=== PATIENT | female | born 2000 | race Caucasian/White ===

== ENCOUNTER 2020-02-15 16:04 | Outpatient (CLI) | payer MEDICAID, SELFPAY ==
[2020-02-17 17:04] LABS: SARS-CoV-2 RNA PCR Negative
== END 2020-02-15 16:05 | disposition home or self-care (01) ==
LOC: CHSLAB 16:08
PROVIDERS: PCP Family Medicine; Visit Provider Family Medicine
DX: J06.9 Acute upper respiratory infection, unspecified (principal); Z20.828 Contact with and (suspected) exposure to other viral communicable diseases
CPT/HCPCS: 87635; C9803; U0003

== ENCOUNTER 2021-04-02 13:26 | Outpatient (CLI) | payer BC, MEDICAID, SELFPAY ==
[2021-04-02 15:00] LABS: SARS-CoV-2 Ag Negative (Negative)
[2021-04-02 15:39] LABS: SARS-CoV-2 RNA PCR Positive (Negative)
== END 2021-04-02 13:27 | disposition home or self-care (01) ==
PROVIDERS: PCP Physician Assistant; Visit Provider Physician Assistant
DX: U07.1 COVID-19 (principal)
CPT/HCPCS: 87426; C9803; U0003; U0005

== ENCOUNTER 2021-04-22 10:06 | Outpatient (CLI) | payer BC, SELFPAY ==
--- NOTE | ~2021-04-22 | XR_ITS ---
EXAMINATION: XR chest 2V DATE: 04/22/2021 10:27 INDICATION: Shortness of breath. Wheezing. TECHNIQUE: Frontal and lateral views of the chest were obtained. COMPARISON: None. FINDINGS: The chest demonstrates clear lungs without pneumonia, pleural effusion, or pneumothorax. Th e heart size is normal. IMPRESSION: 1. No acute cardiopulmonary disease. Reviewed, dictated and finalized at location A. L CONTRACTS SPECIALIST
== END 2021-04-22 10:07 | disposition home or self-care (01) ==
PROVIDERS: PCP Nurse Practitioner Family; Visit Provider Obstetrics & Gynecology
DX: R06.02 Shortness of breath (principal)
CPT/HCPCS: 71046

== ENCOUNTER 2021-04-23 20:11 | Emergency (ER) | payer BC, SELFPAY ==
--- NOTE | ~2021-04-23 | XR_ITS ---
EXAMINATION: XR chest 1V portable EXAM DATE: 04/23/2021 21:42 INDICATION: SOB, wheezing x 1wk worsening today. TECHNIQUE: Portable AP frontal chest x-ray was obtained. Comparison is made to prior examination from 04/22/2021. FINDINGS: There is no significant interval change. The lungs are clear. There are no pleural effusio ns. The cardiomediastinal silhouette is within normal limits. There is no pneumothorax suspected. The bones and soft tissues are unremarkable. IMPRESSION: No acute cardiopulmonary findings. Reviewed, dictated and finalized at location G. UNICATION EQUIPMENT MECHANIC
[2021-04-23] MEDS: methylPREDNISolone SOD SUCC 125 MG VIAL IM (21:09)
[2021-04-23 21:17] VITALS: BP 140/84; PULSE 100; RESP 16; TEMP 36.4; O2SAT 100
[2021-04-23 21:41] LABS: Basophils Absolute Auto 0.05 K/mm3 (0.00-0.10); Basophils Percent Auto 0.5 % (0.0-1.0); Eosinophils Absolute Auto 0.46 K/mm3 (0.02-0.50); Eosinophils Percent Auto 4.4 % (1.0-6.0); Hematocrit 39.2 % (35.0-49.0); Hemoglobin 13.1 g/dL (12.0-15.0); Immature Granulocyte Absolute 0.03 K/mm3 (0.00-0.00); Immature Granulocyte Percent A 0.3 % (0.0-0.0); Lymphocytes Absolute Auto 1.79 K/mm3 (1.10-4.50); Lymphocytes Percent Auto 17.3 % (18.0-42.0); Mean Corpuscular HGB Conc 33.4 g/dL (32.0-36.0); Mean Corpuscular Hemoglobin 30.5 pg (27.0-31.0); Mean Corpuscular Volume 91.4 fL (78.0-102.0); Mean Platelet Volume 9.8 fl (9.2-11.8); Monocytes Absolute Auto 0.66 K/mm3 (0.10-0.90); Monocytes Percent Auto 6.4 % (2.0-11.0); Neutrophils Absolute Auto 7.4 K/mm3 (1.7-7.2); Neutrophils Percent Auto 71.1 % (50.0-70.0); Platelet Count Result 301 K/mm3 (150-420); Red Blood Count 4.29 M/mm3 (4.20-5.40); Red Cell Distribution Width 13.4 % (11.6-14.4); White Blood Count 10.3 K/mm3 (4.8-10.8)
[2021-04-23 21:56] LABS: Alanine Aminotransferase 25 U/L (14-59); Alkaline Phosphatase 63 U/L (46-116); Anion Gap 10 mmol/L (8-16); Aspartate Amino Transferase 14 U/L (15-37); Bilirubin,Total 0.2 mg/dL (0.00-1.00); Blood Urea Nitrogen 10 mg/dL (7-18); Calcium 8.9 mg/dL (8.5-10.1); Carbon Dioxide 24 mmol/L (21-32); Chloride 102 mmol/L (98-108); Estimated CRCL calculation 105 ml/min; Estimated Glomerular Filt Rate > 60; Glucose 86 mg/dL (70-99); Osmolality Calculated 280 mOsm/kg (285-295); Potassium 3.7 mmol/L (3.5-5.1); Sodium 136 mmol/L (136-145); Total Protein 7.2 g/dL (6.4-8.2)
--- NOTE | 2021-04-23 22:09 | ED.SOB ---
HPI - SOB/Dyspnea General Chief Complaint: Shortness of Breath/Dyspnea Stated Complaint: trouble breathing Time Seen by Provider: 04/23/21 20:14 Source: patient and RN notes reviewed Mode of arrival: ambulatory Limitations: no limitations History of Present Illness MD elicited complaint: shortness of breath and cough Pertinent past history: COPD Onset (ago): day(s) (1) Context: recent illness Timing: constant Severity: moderate Exacerbating factors: nothing Relieving factors: bronchodilators Known history of: COPD Associated symptoms: cough and wheezing Treatment prior to arrival: none Related Data Home oxygen amount: none Allergies Allergy/AdvReac Type Severity Reaction Status Date / Time Penicillins Allergy Intermediate hives Verified 04/23/21 21:03 Review of Systems Review of Systems: All systems reviewed & are unremarkable except as noted in HPI and below PMFSH Past Medical History Medical History Bronchitis Perforated ear drum Shortness of breath Surgical History Surgical History History of placement of ear tubes Social History Social History Smoking status: Never smoker Alcohol intake: current Alcohol use details: social Substance use: never Substance use type: does not use Additional living arrangements comments: Boyfriend and son Gender identity (if verbalized by the patient): Female Exam Const: General: healthy appearing, no acute distress and alert Nutritional Appearance: well nourished Orientation/consciousness: patient oriented x3 Limitations: no limitations HENMT: Head: normal to inspection Ears: external ears normal and TM's normal bilaterally General nose exam: Normal external nose present and Normal nares present Mouth: Yes lip normal and Yes moist mucous membranes Teeth and gingiva: dentition normal Eyes: Conjunctivae: conjunctivae normal Pupils: Equal, round and reactive pupils present EOM: EOMs intact bilaterally Neck: Neck: normal visual inspection Chest: Chest palpation & inspection: normal inspection of the chest Resp: Effort & Inspection: normal respiratory effort Auscultation: rhonchi and wheezes Cardio: Rate: regular rate Rhythm: regular rhythm GI: GI Palp: Yes Soft to palpation and No Tenderness to palpation present (GI) Auscultation: normal bowel sounds : General: Yes bladder normal to palpation and Yes no CVA tenderness Other: Pt is approx 15 weeks . Back/Spine/Pelvis: Back: no CVA tenderness Skin: General skin exam: normal color Neuro: General: patient oriented x3, moves all extremities, no meningeal signs, no focal motor deficits and CN's II-XI intact bilaterally Extrem: General: normal to inspection and no pedal edema Psych: Mental Status: mental status grossly normal Affect: normal affect Attitude: cooperative Thought content: Yes Normal thought content present Course Course Emergency Course: Pt had no acute resp distress in the ED with less wheezing. Reevaluation(s) Reevaluation #1: VSS. Date: 04/23/21 Time: 21:13 Vital Signs Vital signs: Vital Signs Temperature 36.4 C 04/23/21 21:17 Pulse Rate 100 04/23/21 21:17 Respiratory Rate 16 04/23/21 21:17 Blood Pressure 140/84 04/23/21 21:17 Pulse Oximetry 100 04/23/21 21:17 Temperature 36.8 C 04/23/21 22:59 Pulse Rate 105 H 04/23/21 22:59 Respiratory Rate 17 04/23/21 22:59 Blood Pressure 124/72 04/23/21 22:59 Pulse Oximetry 98 04/23/21 22:59 MDM - SOB/Dyspnea Differential Diagnosis Differential diagnosis: Likely acute exacerbation of chronic obstructive airways disease, community acquired pneumonia and asthma with exacerbation Medical Records Attestation: I reviewed the patient's medical records. Lab Data Attestation: I reviewed the patient's lab results.
[2021-04-23 22:13] LABS: Base Excess ABG -5.4 mmol/L (0-2); HCO3 ABG 16.7 mmol/L (23-29); Oxygen Content ABG 18.2 %vol (16.0-22.0); Oxygen Saturation ABG 95.1 % (95-97); Oxyhemoglobin 94.4 % (94-100); PCO2 ABG 24.4 mmHg (35-45); PO2 ABG 75.6 mmHg (80-90); Total Hemoglobin 13.7 g/dL (12.0-18.0); pH ABG 7.45 (7.35-7.45)
[2021-04-23 22:15] LABS: Device ROOM AIR; Modified Allen's Test Pass; Site Drawn RIGHT RADIAL
[2021-04-23] MEDS: ALBUTEROL SULFATE (*SP) INHALER 4 PUFF INHALATION (22:35)
[2021-04-23 22:37] VITALS: PULSE 102; RESP 17; O2SAT 97
[2021-04-23 22:39] VITALS: PULSE 102; RESP 17; O2SAT 98
--- NOTE | 2021-04-23 22:56 | PC.NURSE ---
HIV testing refusal form (mother) completed.
[2021-04-23 22:59] VITALS: BP 124/72; PULSE 105; RESP 17; TEMP 36.8; O2SAT 98
== END 2021-04-23 23:02 | disposition home or self-care (01) ==
PROVIDERS: Emergency Provider Emergency Medicine; PCP Nurse Practitioner Family
DX: J40 Bronchitis, not specified as acute or chronic (principal); Z33.1 Pregnant state, incidental
CPT/HCPCS: 36415; 36600; 71045; 80053; 82805; 85025; 96372; 99283; A9270; J2930

== ENCOUNTER 2021-10-11 01:26 | Outpatient (RCR) | payer BC, MEDICAID, SELFPAY ==
[2021-10-11 02:13] VITALS: BP 118/75; PULSE 80
== END 2021-11-01 14:59 | disposition home or self-care (01) ==
LOC: ANHLDR 01:26
PROVIDERS: Visit Provider Obstetrics & Gynecology
DX: O36.8130 Decreased fetal movements, third trimester, not applicable or unspecified (principal); Z3A.39 39 weeks gestation of pregnancy
CPT/HCPCS: 59025

== ENCOUNTER 2021-10-15 18:08 | Inpatient (IN) | payer BC, MEDICAID, SELFPAY ==
[2021-10-15] VITALS (7 sets, daily range): BP systolic 116–133; BP diastolic 64–83; PULSE 88–98; TEMP 37.1; BMI 32.3
[2021-10-15 19:14] LABS: Basophils Percent Auto 0.3 % (0.2-1.2); Eosinophils Percent Auto 0.5 % (0-4.4); Hematocrit 33.8 % (37.0-47.0); Hemoglobin 10.4 g/dL (12.0-15.0); Immature Granulocyte Absolute 0.06 K/mm3 (0.00-0.031); Immature Granulocyte Percent A 0.7 % (0-0.5); Lymphocytes Absolute Auto 1.84 K/mm3 (0.9-3.2); Mean Corpuscular HGB Conc 30.8 g/dl (32-36); Mean Corpuscular Hemoglobin 26.5 pg (26-34); Mean Platelet Volume 11.2 fl (7.4-10.4); Monocytes Absolute Auto 0.7 K/mm3 (0.1-0.6); Neutrophils Absolute Auto 6.1 K/mm3 (1.3-6.7); Neutrophils Percent Auto 69.5 % (45.5-73.1); Platelet Count Result 264 k/mm3 (150-375); Red Blood Count 3.93 M/mm3 (4.2-5.4); Red Cell Distribution Width 15.2 % (11.5-14.5); White Blood Count 8.8 K/mm3 (4.5-10.0)
--- NOTE | 2021-10-15 19:19 | WPDANESEPP ---
Anes - Eval Pre Procedure Procedure: labor epidural Date/Time: 10/15/21 19:19 Surgeon: ashly Preop Diagnosis: pain during labor Pre Op Diagnosis: IOL Patient Data Age: 21 Gender: F Height: 1.65 m Weight: 88 kg Last Vital Signs Temp 37.1 C 10/15/21 18:15 Pulse 91 10/15/21 19:15 BP 116/78 10/15/21 19:15 O2 Del Method Room Air 10/15/21 18:44 Allergies Allergy/AdvReac Type Severity Reaction Status Date / Time Penicillins Allergy Intermediate hives Verified 10/07/21 14:39 Home Medications Medication Instructions Recorded Confirmed Type albuterol sulfate 90 mcg/actuation 1 inh inhalation Q4H PRN shortness 04/19/21 04/23/21 Rx aerosol inhaler (ProAir HFA) of breath or wheezing #8.5 grams inhalational spacing device #10 ea 04/19/21 04/23/21 Rx (Aerochamber MV spacer) prenat.vits,jasper,[id number] 1 tablet PO HS 10/07/21 10/07/21 History Laboratory Tests 10/15/21 10/15/21 18:40 18:40 WBC 8.8 K/mm3 K/mm3 (4.5-10.0) RBC 3.93 M/mm3 L M/mm3 (4.2-5.4) Hgb 10.4 g/dL L g/dL (12.0-15.0) Hct 33.8 % L % (37.0-47.0) MCV 86.0 fl fl (80-100) MCH 26.5 pg pg (26-34) MCHC 30.8 g/dl L g/dl (32-36) RDW 15.2 % H % (11.5-14.5) Plt Count 264 k/mm3 k/mm3 (150-375) MPV 11.2 fl H fl (7.4-10.4) Immature Gran % (Auto) 0.7 % H % (0-0.5) Neut % (Auto) 69.5 % % (45.5-73.1) Lymph % (Auto) 21.0 % % (18.3-44.2) Sequoyah % (Auto) 8.0 % % (2.6-8.5) Eos % (Auto) 0.5 % % (0-4.4) Baso % (Auto) 0.3 % % (0.2-1.2) Lymph # (Auto) 1.84 K/mm3 K/mm3 (0.9-3.2) [place] # (Auto) 0.7 K/mm3 H K/mm3 (0.1-0.6) Eos # (Auto) 0.0 K/mm3 K/mm3 (0-0.3) Baso # (Auto) 0.0 K/mm3 K/mm3 (0.0-0.1) Abs Immat Gran (auto) 0.06 K/mm3 H K/mm3 (0.00-0.031) Absolute Neuts (auto) 6.1 K/mm3 K/mm3 (1.3-6.7) Absolute Nucleated RBC 0.0 K/mm3 K/mm3 (0.0-0.012) Nucleated RBC % 0.0 % % (0.0-0.2) RPR Pending Patient hx anesthesia problems: none Family hx anesthesia problems: none Results Review: All pre-operative results and documents have been reviewed as part of the pre-operative evaluation. [facility] Past Medical History Medical History Bronchitis Perforated ear drum Shortness of breath Surgical History Surgical History History of placement of ear tubes Family History Family History (Updated 10/07/21 @ 14:42 by Emma Cardoso RN) Mother Hypertension Social History Social History Smoking status: Current every day smoker Tobacco type: e-cigarettes/vaping Second hand tobacco smoke exposure: Yes Alcohol intake: current Alcohol use details: social Substance use: never Substance use type: does not use Additional living arrangements comments: Boyfriend and son Gender identity (if verbalized by the patient): Female Spiritual care concerns: No Exam Day of Procedure 10/15/21 19:19
[2021-10-15] MEDS: DINOPROSTONE 10 MG VAG INSERT VAGINAL (19:33)
[2021-10-16] VITALS (238 sets, daily range): BP systolic 73–232; BP diastolic 21–195; PULSE 30–216; RESP 18–20; TEMP 36.8–37.3; O2SAT 84–100
[2021-10-16] MEDS: fentaNYL CITRATE INJ (*CRX) 100 MCG/2 ML VIAL 50 MCG IV PUSH (00:28)
[2021-10-16] MEDS: LACTATED RINGERS 1,000 ML 125 ML IV CONT ×5 (00:30→13:55)
[2021-10-16] MEDS: TERBUTALINE SULFATE 1 MG/ML VIAL 0.25 MG SUB-Q ×2 (04:10→04:38)
[2021-10-16] MEDS: ONDANSETRON INJ 4 MG/2 ML VIAL IV PUSH (04:23)
--- NOTE | 2021-10-16 06:46 | PM.IMHP ---
H&P: HPI History of Present Illness Date/Time: 10/16/21 06:46 Chief Complaint: Postdates Narrative: this is a 21-year-old 1 para 0 whose last menstrual period was December of 2020, EDC is 10/13/2021, confirmed by 6 week ultrasound. She presents at 40 and half weeks gestation for induction of labor. The has been on remarkable. She she is negative for group B strep PMFSH Past Medical History Medical History Bronchitis Perforated ear drum Shortness of breath Surgical History Surgical History History of placement of ear tubes Family History Family History Mother Hypertension Social History Social History Smoking status: Current every day smoker Tobacco type: e-cigarettes/vaping Second hand tobacco smoke exposure: Yes Alcohol intake: current Alcohol use details: social Substance use: never Substance use type: does not use Additional living arrangements comments: Boyfriend and son Gender identity (if verbalized by the patient): Female Spiritual care concerns: No Meds Home Medications and Allergies Home Medications Medication Instructions Recorded Confirmed Type albuterol sulfate 90 mcg/actuation 1 inh inhalation Q4H PRN shortness 04/19/21 10/15/21 Rx aerosol inhaler (ProAir HFA) of breath or wheezing #8.5 grams inhalational spacing device #10 ea 04/19/21 10/15/21 Rx (Aerochamber MV spacer) prenat.vits,jasper,[id number] 1 tablet PO HS 10/07/21 10/07/21 History Allergies Allergy/AdvReac Type Severity Reaction Status Date / Time Penicillins Allergy Intermediate hives Verified 10/07/21 14:39 Vital Signs Vital Signs - 24 hr 10/15/21 18:27 10/15/21 18:15 10/15/21 19:15 Temperature 98.7 F Pulse Rate 98 91 Respiratory Rate Blood Pressure 127/74 116/78 Pulse Oximetry Oxygen Delivery 10/15/21 20:00 10/15/21 21:00 10/15/21 23:49 Temperature Pulse Rate 89 89 88 Respiratory Rate Blood Pressure 122/70 124/64 133/83 Pulse Oximetry Oxygen Delivery 10/15/21 22:00 10/16/21 01:52 10/16/21 01:54 Temperature 98.7 F Pulse Rate 97 Respiratory Rate Blood Pressure 142/75 H Pulse Oximetry 100 99 Oxygen Delivery 10/16/21 01:54 10/16/21 01:55 10/16/21 01:56 Temperature Pulse Rate 99 91 Respiratory Rate Blood Pressure 146/85 H 135/85 Pulse Oximetry 98 93 Oxygen Delivery 10/16/21 01:57 10/16/21 01:59 10/16/21 02:01 Temperature Pulse Rate 89 87 Respiratory Rate Blood Pressure 90/75 L 117/84 Pulse Oximetry 100 Oxygen Delivery 10/16/21 02:02 10/16/21 02:04 10/16/21 02:05 Temperature Pulse Rate 100 79 Respiratory Rate Blood Pressure 130/73 138/57 L Pulse Oximetry 100 99 Oxygen Delivery 10/16/21 02:06 10/16/21 02:09 10/16/21 02:10 Temperature Pulse Rate 77 81 74 Respiratory Rate Blood Pressure 137/69 137/55 L 126/50 L Pulse Oximetry 100 Oxygen Delivery 10/16/21 02:11 10/16/21 02:12 10/16/21 02:16 Temperature Pulse Rate 75 82 Respiratory Rate Blood Pressure 114/61 88/68 L Pulse Oximetry 99 100 Oxygen Delivery 10/16/21 02:21 10/16/21 02:21 10/16/21 02:21 Temperature Pulse Rate Respiratory Rate Blood Pressure Pulse Oximetry 99 97 92 Oxygen Delivery 10/16/21 02:21 10/16/21 02:21 10/16/21 02:22 Temperature Pulse Rate 82 Respiratory Rate Blood Pressure 130/85 Pulse Oximetry 100 Oxygen Delivery 10/16/21 02:22 10/16/21 02:30 10/16/21 02:45 Temperature Pulse Rate 82 84 Respiratory Rate Blood Pressure 135/74 124/67 Pulse Oximetry 100 Oxygen Delivery 10/16/21 03:00 10/16/21 03:09 10/16/21 03:14 Temperature Pulse Rate
[2021-10-16] MEDS: OXYTOCIN 30 UNITS/NS 500 ML 30 UNITS/500 ML BAG IV CONT (07:31)
--- NOTE | 2021-10-16 07:56 | LDADM ---
This patient, Emma Mazariegos, was admitted to Labor/Delivery/Recovery 109 on 10/15/21 at 18:08. Plans for labor, pain management and were discussed with patient. Patient/family oriented to hospital policies and general routines including ID bracelet, bed and alarms, visiting hours, pain management, procedures, bathroom and other care routines, personal items, smoking policy, room service/diet and guest tray routines, security routines, and visiting hours. Patient/Family are encouraged to report perceived risks to care and to ask questions if they do not understand what they are told or what they should do. See OBIX for further documentation.
[2021-10-16] MEDS: diphenhydrAMINE HCl INJ 50 MG/ML VIAL 25 MG IV PUSH (08:45)
[2021-10-16 10:22] LABS: Rapid Plasma Reagin Non-Reactive (NonReactive)
--- NOTE | 2021-10-16 15:46 | P.PCNOB_ITS ---
OB - Delivery Note Procedure Delivery date: 10/16/21 Procedure: mil Events: Elective Induction of Labor Induction method: Per Cervidil Protocol Delivery augmentation: Rupture of Membranes and Pitocin Delivery monitor: External FHT and Internal Uterine Route of delivery: Episiotomy description: None Laceration Description: None Specimen: No Quantitative Blood Loss (ml): 59 Anesthesia type: Epidural Disposition: Floor [place] Baby Date of : 10/16/21 Time of : 15:39 Weeks of gestation at delivery: 40 gender: Female presentation: vertex position: Right Occiput Anterior Placenta delivery description: Spontaneous Cord Vessel Description: 3 Vessels
[2021-10-16] MEDS: OXYTOCIN 30 UNITS/NS 500 ML 30 UNITS/500 ML BAG 125 UNITS IV CONT (16:21)
[2021-10-16] MEDS: IBUPROFEN 600 MG TABLET PO (17:05)
--- NOTE | 2021-10-16 18:00 | OBPPTRN ---
Patient transferred to post room #291 via W/C. Support person present. Oriented to unit, room, information board, rooming in, admission packet and security measures. Patient verbalizes understanding.
[2021-10-17] MEDS: IBUPROFEN 600 MG TABLET PO ×2 (02:54→08:31)
[2021-10-17 04:10] VITALS: BP 106/65; PULSE 75; RESP 16; TEMP 36.8
[2021-10-17 05:49] LABS: Hematocrit 28.6 % (37.0-47.0); Hemoglobin 8.9 g/dL (12.0-15.0)
--- NOTE | 2021-10-17 06:48 | PM.OBPNVD ---
OB - PN: Subj Subjective Date/time seen: 10/17/21 06:48 Patient comments: no complaints and pain well controlled baby status: doing well OB - PN: Obj Data Labs CBC & Chem 7: 10/17/21 04:14 Labs: Laboratory Results - last 24 hr 10/15/21 10/17/21 18:40 04:14 Hgb 8.9 L Hct 28.6 L RPR Non-reactive OB - PN A/P Assessment and Plan (1) Term : Code(s): Z34.90 - Encounter for supervision of normal , unspecified, unspecified trimester Status: Acute Plan day: 1 Plan: routine care Time Spent With Patient Time: Total time spent is greater than 50% in coordination of care (as documented) at patient's floor/unit and/or counseling patient: Time with patient: less than 15 minutes
--- NOTE | 2021-10-17 07:19 | PM.DS ---
DS: Admitting Diagnosis Discharge Date 10/17/2021 Admitting Diagnosis term DS: Discharge Diagnosis Discharge Diagnosis (1) Term : Code(s): Z34.90 - Encounter for supervision of normal , unspecified, unspecified trimester Status: Acute DS: Summary Hospital Course Reason for hospitalization: medical induction of labor Hospital Course: this is a 21-year-old 1 para 0 who was admitted S4 days post due date for induction of labor. She underwent spontaneous vaginal delivery. Her hospital course was unremarkable. She asked to be discharged 24hours out. She was , voiding without difficulty, ambulating, generally without complaints. Time Spent with Patient Time attestation: Total time spent providing and/or coordinating discharge services: DS: Data Data Completed and Pending Labs on day of discharge: Labs from last 24 hours 10/17/21 10/15/21 04:14 18:40 Hgb 8.9 L Hct 28.6 L RPR Non-reactive Discharge Plan Discharge Attending physician on discharge: Cipriano Pace Discharging Clinician: Cipriano Pace Patient Disposition: Home, Self-Care Activity: may shower, no straining and pelvic rest Diet: heart healthy Wound Care Instructions: follow printed instructions Patient Instructions: Antibiotic Form Stand Alone Forms: General Discharge Information Follow-up/Referrals: Cipriano Pace MD [Physician] - Discharge Medications: Continued albuterol sulfate [ProAir HFA] 90 mcg/actuation HFA aerosol inhaler 1 inh inhalation Q4H PRN (Reason: shortness of breath or wheezing) Qty: 8.5 0RF (DME) Aerochamber MV Spacer See Rx Instructions .Route Qty: 10 0RF Rx Instructions: As directed #2 Tablet 1 tablet PO HS Date of admission: 10/15/21 18:08 Primary Care Provider: PHYSICIAN,HVAC RESIDENTIAL SERVICE TECHNICIAN Admitting Provider: Cipriano Pace Attending physician on admission: Cipriano Pace Condition: Stable
[2021-10-17 07:35] VITALS: BP 107/49; PULSE 75; RESP 18; TEMP 36.3; O2SAT 97
--- NOTE | 2021-10-17 08:05 | WPDANLDPN2 ---
Anes-Prog Note L&D Date/Time: 10/17/21 08:05 Comfortable throughout: labor and delivery Neuraxial method: epidural Epidural/Spinal procedure site: clean & non-tender Neuro status: Neuro function grossly intact. Cardiovascular status: normal Respiratory status: normal Airway patency: baseline Mental status: baseline Post-Op hydration status: normal Vital Signs: Last Vital Signs Temp 36.8 C 10/17/21 04:10 Pulse 75 10/17/21 04:10 Resp 16 10/17/21 04:10 BP 106/65 10/17/21 04:10 Pulse Ox 99 10/16/21 15:48 O2 Del Method Room Air 10/16/21 18:18 Pain score (VAS): 2 I/O: Intake & Output 10/16/21 10/17/21 10/17/21 23:59 07:59 15:59 Intake Total 1000 Output Total 192 Balance 808 Post-procedural complaints: none Patient feedback: Patient satisfied with anesthetic care.
[2021-10-17] MEDS: POLYSACCHARIDE IRON COMPLEX 150 MG CAPSULE PO ×2 (08:31→17:15)
[2021-10-17] MEDS: DOCUSATE SODIUM 100 MG CAPSULE PO ×2 (08:31→17:15)
[2021-10-17] MEDS: MULTIVIT/MIN/PREN/FOL AC/IRON TABLET 1 TAB PO (08:31)
--- NOTE | 2021-10-17 08:44 | PC.NURSE ---
[id number] Introductions were made, then consulted with patient to assess needs related to . Mother led the conversation with her experience feeding her so far. Resources provided for inpatient and outpatient services using a resource guide and mom/baby guide. Mother voiced understanding of information and will call if there is a request for assistance. Reported to primary RN.
[2021-10-17 12:31] VITALS: BP 116/55; PULSE 79; RESP 18; TEMP 36.4; O2SAT 98
[2021-10-18 10:03] VITALS: BP 128/79; PULSE 82; RESP 20; TEMP 36.7; O2SAT 99
== END 2021-10-17 17:53 | disposition home or self-care (01) | DRG 807 ==
LOC: ANHLDR 10-16 08:22 → ANHOB2 10-16 18:03
PROVIDERS: Admitting Provider Obstetrics & Gynecology; Visit Provider Obstetrics & Gynecology
DX: O48.0 Post-term pregnancy (principal); Z37.0 Single live birth; Z3A.40 40 weeks gestation of pregnancy; O77.0 Labor and delivery complicated by meconium in amniotic fluid; O36.8330 Maternal care for abnormalities of the fetal heart rate or rhythm, third trimester, not applicable or unspecified
CPT/HCPCS: 36415; 85014; 85018; 85025; 86592; 86850; 86900; 86901; A9270; J1200; J2405; J2590; J2795; J3010; J3105; J7120

== ENCOUNTER 2022-03-06 20:13 | Emergency (ER) | payer BC, OTHER, SELFPAY ==
[2022-03-06] VITALS (8 sets, daily range): BP systolic 114–140; BP diastolic 69–82; PULSE 66–110; RESP 14–20; TEMP 36.2–37; O2SAT 98–100
--- NOTE | 2022-03-06 20:24 | ECG_ITS ---
Measurements Intervals [place] Rate: 94 P: -30 WI: 142 QRS: 21 QRSD: 84 T: 18 QT: 346 QTc: 434 Interpretive Statements SINUS RHYTHM NORMAL ELECTROCARDIOGRAM NO PREVIOUS ECG AVAILABLE FOR COMPARISON Electronically Signed On 03-07-2022 16:33:41 OIL WELL CABLE TOOL DRILLER by Jacques Booth M.D.
[2022-03-06 20:43] LABS: Basophils Absolute Auto 0.03 K/mm3 (0.00-0.10); Basophils Percent Auto 0.5 % (0.0-1.0); Eosinophils Absolute Auto 0.12 K/mm3 (0.02-0.50); Eosinophils Percent Auto 1.8 % (1.0-6.0); Hematocrit 38.5 % (35.0-49.0); Hemoglobin 12.4 g/dL (12.0-15.0); Immature Granulocyte Absolute 0.02 K/mm3 (0.00-0.00); Immature Granulocyte Percent A 0.3 % (0.0-0.0); Lymphocytes Percent Auto 27.7 % (18.0-42.0); Mean Corpuscular HGB Conc 32.2 g/dL (32.0-36.0); Mean Corpuscular Hemoglobin 29.7 pg (27.0-31.0); Mean Corpuscular Volume 92.1 fL (78.0-102.0); Mean Platelet Volume 10.1 fl (9.2-11.8); Monocytes Absolute Auto 0.57 K/mm3 (0.10-0.90); Monocytes Percent Auto 8.8 % (2.0-11.0); Neutrophils Percent Auto 60.9 % (50.0-70.0); Platelet Count Result 299 K/mm3 (150-420); Red Blood Count 4.18 M/mm3 (4.20-5.40); Red Cell Distribution Width 11.9 % (11.6-14.4); White Blood Count 6.5 K/mm3 (4.8-10.8)
[2022-03-06 21:07] LABS: Alanine Aminotransferase 46 U/L (14-59); Albumin Level 3.7 g/dL (3.4-5.0); Alkaline Phosphatase 95 U/L (46-116); Anion Gap 8 mmol/L (8-16); Aspartate Amino Transferase 21 U/L (15-37); Bilirubin,Total 0.3 mg/dL (0.00-1.00); Blood Urea Nitrogen 10 mg/dL (7-18); Calcium 8.4 mg/dL (8.5-10.1); Carbon Dioxide 28 mmol/L (21-32); Chloride 105 mmol/L (98-108); Estimated CRCL calculation 92 ml/min; Estimated Glomerular Filt Rate > 60; Glucose 128 mg/dL (70-99); Osmolality Calculated 293 mOsm/kg (285-295); Potassium 3.8 mmol/L (3.5-5.1); Salicylate 1.4 mg/dL (2.8-20.0); Sodium 141 mmol/L (136-145); Total Protein 7.3 g/dL (6.4-8.2)
[2022-03-06 21:08] LABS: Acetaminophen < 2 ug/mL (10-30); Ethanol < 3 mg/dL (0-6)
[2022-03-06 21:21] LABS: SARS-CoV-2 RNA PCR Negative (Negative)
[2022-03-06 21:29] LABS: Thyroid Stimulating Hormone < 0.01 uIU/mL (0.36-3.74)
--- NOTE | 2022-03-06 21:49 | PC.NURSE ---
patient can not breast feed for 2days
[2022-03-06 21:59] LABS: Add Urine Microscopic? YES; Appearance Urine Clear (Clear); Bilirubin Urine Negative (Negative); Blood Urine Negative (Negative); Color Urine Light Yellow (Yellow); Glucose Urine UA Negative (Negative); Ketones Urine Negative (Negative); Leukocyte Esterase Ur Trace LEU/UL (Negative); Nitrate Urine Negative (Negative); Protein Urine Negative (Negative); Specific Grav Ur 1.015 (1.010-1.020); Urobilinogen Urine 0.2 mg/dL (0.2-1.0)
[2022-03-06 22:01] LABS: Pregnancy On Board Control Positive; Urine Pregnancy Test Negative
[2022-03-06] MEDS: ONDANSETRON HCL ODT 4 MG TABLET PO (22:02)
[2022-03-06] MEDS: ALPRAZolam (*CRX) 0.5 MG TABLET PO (22:02)
[2022-03-06 22:05] LABS: Amphetamine Screen Urine Negative (Negative); Barbiturate Screen Urine Negative (Negative); Benzodiazepines Screen Urine Negative (Negative); Cannabinoid Screen Urine Negative (Negative); Cocaine Screen Urine Negative (Negative); Methadone Screen Urine Negative (Negative); Opiate Screen Urine Negative (Negative); Phencyclidine Screen Urine Negative (Negative)
[2022-03-06 22:10] LABS: Bacteria Urine Trace /hpf; RBC Urine 0-2 /hpf (0-2); Squamous Epithelial Cell Urine Few /hpf (Few); WBC Urine 0-3 /hpf (0-3)
[2022-03-06 22:11] LABS: Mucus Urine Rare /lpf
--- NOTE | 2022-03-06 23:33 | PC.NURSE ---
Care resumed, pt resting c lights out and sitter at bedside monitoring per protocol. See obs. flowsheet per sitter. Pt is on monitor c VSS and heart monitor in place showing NSR. Per report pt will be monitored until 1Am for medical clearance and then [facility] can be called for pt evaluation. Pt is polite upon entering room, when asked questions she answers appropriately and does state she is having more SI and intentions on acting upon them. She states she is depressed and has been dx'd c manic bipolar episodes and thinks this is what caused her to take OD of her pills tonight. POC discussed c pt and she is aware of Plan.
[2022-03-07] VITALS: BP 109/59; PULSE 90; RESP 15; TEMP 36.8; O2SAT 100
--- NOTE | 2022-03-07 00:55 | PC.NURSE ---
Pt sleeping, monitor showing NSR, VSS. Pt is cleared medically for eval by [facility].
--- NOTE | 2022-03-07 02:27 | PC.NURSE ---
Pt sleeping, continuing to monitor per protocol c sitter at bedside, see obs. flowsheet documentation.
--- NOTE | 2022-03-07 03:38 | PC.NURSE ---
Pt was evaluated by counselor ross Richardson, POC discussed and safety plan signed by pt for f/u on o/p basis ross Richardson. Dr Seaamn informed and pt to d/c home c mother.
--- NOTE | 2022-03-07 03:49 | ED.OVERDOSE ---
HPI - Overdose General Chief Complaint: Overdose Stated Complaint: suicidal, took a bunc of pills Source: patient Mode of arrival: ambulatory Limitations: no limitations History of Present Illness HPI Narrative: This is a 21-year-old female that presents after she took 12 of her Seroquel in an attempt to commit suicide, has a history of depression, patient had no palpitations no cough no congestion no fever chills no chest pain no shortness of breath no nausea or vomiting no diarrhea constipation or abdominal pain. complaint: intentional overdose Onset (ago): hour(s) Intent: suicide attempt Related Data Home Medications Medication Instructions Recorded Confirmed prenat.vits,jasper,[id number] 1 tablet PO HS 10/07/21 03/06/22 citalopram 20 mg tablet (Celexa) 20 mg PO DAILY 03/06/22 03/06/22 quetiapine 25 mg tablet (Seroquel) 25 mg PO DAILY 03/06/22 03/06/22 Allergies Allergy/AdvReac Type Severity Reaction Status Date / Time Penicillins Allergy Intermediate hives Verified 10/07/21 14:39 Review of Systems Review of Systems: All systems reviewed & are unremarkable except as noted in HPI and below PMFSH Past Medical History Medical History Bronchitis Perforated ear drum Shortness of breath Surgical History Surgical History History of placement of ear tubes Family History Family History Mother Hypertension Social History Social History Smoking status: Current every day smoker Tobacco type: e-cigarettes/vaping Second hand tobacco smoke exposure: Yes Alcohol intake: current Alcohol use details: social Substance use: never Substance use type: marijuana and tranquilizers Additional living arrangements comments: Boyfriend and son Gender identity (if verbalized by the patient): Female Spiritual care concerns: No Exam Const: General: healthy appearing Nutritional Appearance: well nourished Orientation/consciousness: patient oriented x3 Limitations: no limitations HENMT: Head: normal to inspection Face and sinus: normal facial exam Mouth: Yes Normal oral and palatal mucosa present Eyes: Conjunctivae: conjunctivae normal Pupils: Equal, round and reactive pupils present EOM: EOMs intact bilaterally Neck: Neck: normal visual inspection Chest: Chest palpation & inspection: normal inspection of the chest Resp: Effort & Inspection: normal respiratory effort Cardio: Rate: regular rate GI: GI Palp: Yes Soft to palpation Auscultation: normal bowel sounds Urinary Catheter: Urinary Catheter: patent and draining Back/Spine/Pelvis: Back: no CVA tenderness Skin: General skin exam: normal color Rashes: no rashes Neuro: General: patient oriented x3 and moves all extremities Extrem: General: normal to inspection, no clubbing, cyanosis or edema and no pedal edema Psych: Affect: Sad affect present Course Course Emergency Course: Labs performed and reviewed and mental health subsequently after she was medically cleared and after 6hours of monitoring for Seroquel side effects patient was cleared to go home with her mother and a follow-up with Psychiatry. /Mental health Vital Signs Vital signs: Vital Signs Temperature 37.0 C 03/06/22 20:19 Pulse Rate 100 03/06/22 20:19 Respiratory Rate 20 03/06/22 20:19 Blood Pressure 140/82 03/06/22 20:19 Pulse Oximetry 99 03/06/22 20:19 Oxygen Delivery Room Air 03/06/22 20:19 Temperature 36.8 C 03/07/22 00:00 Pulse Rate 90 03/07/22 00:00 Respiratory Rate 15 03/07/22 00:00 Blood Pressure 109/59 L 03/07/22 00:00 Pulse Oximetry 100 03/07/22 00:00 Oxygen Delivery Room Air 03/06/22 23:12 MDM - Overdose Lab Data 03/06/22 20:39 03/06/22 20:39 Labs:
[2022-03-07 04:02] VITALS: BP 109/62; PULSE 87; RESP 18; TEMP 36.4; O2SAT 99
== END 2022-03-07 04:08 | disposition home or self-care (01) ==
PROVIDERS: Emergency Provider Emergency Medicine; PCP Nurse Practitioner Family
DX: T43.592A Poisoning by other antipsychotics and neuroleptics, intentional self-harm, initial encounter (principal); F32.A Depression, unspecified; F17.209 Nicotine dependence, unspecified, with unspecified nicotine-induced disorders; Z20.822 Contact with and (suspected) exposure to COVID-19
CPT/HCPCS: 36415; 80053; 80307; 81001; 81025; 84443; 85025; 93005; 99284; A9270; U0003; U0005

== ENCOUNTER 2022-03-27 20:24 | Emergency (ER) | payer BC, OTHER, SELFPAY ==
--- NOTE | ~2022-03-27 | XR_ITS ---
EXAMINATION: XR chest 2V 03/27/2022 20:52 INDICATION: Rib pain PROCEDURE: 2 view chest COMPARISON: 04/23/2021 FINDINGS: The lungs are clear. The cardiomediastinal silhouette is within normal limits. There are no pleural effusions. There is no pneumothorax suspected. There are breast implants. IMPRESSION: 1: NO ACUTE CARDIOPULMONARY DISEASE. Reviewed, dictated and finalized at location A. T [facility]
[2022-03-27 20:30] VITALS: BP 124/77; PULSE 100; RESP 20; TEMP 36.3; O2SAT 99
--- NOTE | 2022-03-27 20:31 | ECG_ITS ---
Measurements Intervals [place] Rate: 97 P: -39 CO: 125 QRS: 35 QRSD: 77 T: 23 QT: 332 QTc: 424 Interpretive Statements SINUS RHYTHM INCOMPLETE RIGHT BUNDLE BRANCH BLOCK BASELINE ARTIFACT- III, AVF, V3 BORDERLINE ECG COMPARED TO ECG 03/06/2022 20:48:31 NO SIGNIFICANT CHANGES Electronically Signed On 03-28-2022 8:09:41 PSYCHIATRIC TECH by Partha Capps D.O.
--- NOTE | 2022-03-27 21:00 | ED.GENADULT ---
HPI - General Adult General Chief complaint: Unspecified Stated complaint: rib pain Time Seen by Provider: 03/27/22 20:30 Source: patient Mode of arrival: ambulatory Limitations: no limitations History of Present Illness HPI narrative: Is a 21-year-old female who presents with some left-sided rib pain with that is reproducible with palpation and with deep inspiration, the patient was diagnosed in the past chronic bronchitis and has had inhaler, patient occasionally has some audible wheezing and cough. Otherwise no nausea vomiting no fever chills no chest congestion no current wheezing no abdominal pain. Patient also has been complaining of palpitations off and on currently not having any palpitations with no chest pain. Onset (ago): day(s) Related Data Home Medications Medication Instructions Recorded Confirmed citalopram 20 mg tablet (Celexa) 20 mg PO DAILY 03/06/22 03/27/22 quetiapine 25 mg tablet (Seroquel) 25 mg PO DAILY 03/06/22 03/27/22 Allergies Allergy/AdvReac Type Severity Reaction Status Date / Time Penicillins Allergy Intermediate hives Verified 10/07/21 14:39 Review of Systems Review of Systems: All systems reviewed & are unremarkable except as noted in HPI and below PMFSH Past Medical History Medical History Bronchitis Perforated ear drum Shortness of breath Surgical History Surgical History History of placement of ear tubes Family History Family History Mother Hypertension Social History Social History Smoking status: Current every day smoker Tobacco type: e-cigarettes/vaping Second hand tobacco smoke exposure: Yes Alcohol intake: current Alcohol use details: social Substance use: never Substance use type: marijuana and tranquilizers Additional living arrangements comments: Boyfriend and son Gender identity (if verbalized by the patient): Female Spiritual care concerns: No Exam Const: General: cooperative, healthy appearing, comfortable, no acute distress and well developed HENMT: Head: normal to inspection Mouth: Yes Normal oral and palatal mucosa present Teeth and gingiva: dentition normal Throat: posterior oropharynx normal Eyes: General: appearance normal, both eyes and all related structures Visual Sanchez: normal visual sanchez by confrontation Alignment and Position: alignment normal Periorbital: periorbital findings normal Eyelids: eyelids normal Conjunctivae: conjunctivae normal Sclera: sclerae normal Neck: Neck: normal visual inspection, full ROM, no lymphadenopathy and no meningeal signs Chest: Chest palpation & inspection: normal inspection of the chest and normal palpation of entire chest wall Resp: Effort & Inspection: normal respiratory effort Cardio: Jugular venous distension: no JVD Palpation: normal PMI Rate: regular rate Rhythm: regular rhythm GI: Inspection: normal to inspection Percussion: Yes normal to percussion : General: Yes bimanual renal exam normal bilaterally Urinary Catheter: Urinary Catheter: patent and draining Back/Spine/Pelvis: Back: no CVA tenderness Skin: General skin exam: normal color and no rashes or lesions noted Neuro: General: oriented to person, oriented to place and oriented to time Extrem: General: normal to inspection, full ROM and capillary refill normal Right lower extremity: normal to inspection Psych: Appearance: grossly normal Mental Status: mental status grossly normal Speech and movement: Normal speech and movement present Course Course Emergency Course: Labs and chest x-ray reviewed and within limits blood work reviewed and within normal limits as. Vital Signs Vital signs: Vital Signs Temperature 36.3 C L 03/27/22 20:30 Pulse Rate 100 03/27/22 20:30
[2022-03-27 21:04] LABS: Alanine Aminotransferase 45 U/L (14-59); Albumin Level 3.7 g/dL (3.4-5.0); Alkaline Phosphatase 101 U/L (46-116); Anion Gap 6 mmol/L (8-16); Aspartate Amino Transferase 14 U/L (15-37); Bilirubin,Total 0.3 mg/dL (0.00-1.00); Blood Urea Nitrogen 13 mg/dL (7-18); Calcium 8.7 mg/dL (8.5-10.1); Carbon Dioxide 28 mmol/L (21-32); Chloride 105 mmol/L (98-108); Estimated CRCL calculation 94 ml/min; Estimated Glomerular Filt Rate > 60; Glucose 99 mg/dL (70-99); Magnesium 1.5 mg/dL (1.8-2.4); Osmolality Calculated 288 mOsm/kg (285-295); Potassium 4.1 mmol/L (3.5-5.1); Sodium 139 mmol/L (136-145); Total Protein 7.3 g/dL (6.4-8.2)
[2022-03-27] MEDS: MAGNESIUM OXIDE 400 MG TABLET PO (21:14)
[2022-03-27 21:20] VITALS: BP 118/70; PULSE 87; RESP 20; TEMP 36.4; O2SAT 99
== END 2022-03-27 21:22 | disposition home or self-care (01) ==
PROVIDERS: Emergency Provider Emergency Medicine; PCP Nurse Practitioner Family
DX: R07.9 Chest pain, unspecified (principal); R00.2 Palpitations; E83.42 Hypomagnesemia; F17.290 Nicotine dependence, other tobacco product, uncomplicated; Z79.51 Long term (current) use of inhaled steroids
CPT/HCPCS: 36415; 71046; 80053; 83735; 93005; 99283; A9270

== ENCOUNTER 2022-08-15 15:40 | Outpatient (CLI) | payer BC, OTHER, SELFPAY | END 2022-08-15 15:41 | disposition home or self-care (01) | LOC: CHSLAB 15:43 | PROVIDERS: PCP Nurse Practitioner Family; Visit Provider Nurse Practitioner Family | DX: Z32.01 Encounter for pregnancy test, result positive (principal) | CPT/HCPCS: 36415; 84702 ==

== ENCOUNTER 2022-09-05 12:41 | Outpatient (CLI) | payer BC, OTHER, SELFPAY ==
--- NOTE | 2022-09-14 16:00 | P.PCNPFT_ITS ---
PFT Procedure Performed PFT Procedure Performed Spirometry with Pre/Post Bronchodilator Plethysmography (Lung Vol) Diffusing Cap (DLCO) PFT Interpretation DOS: 09/05/2022 REQUESTING: Angi Simon PA-C REASON FOR TESTING: Cough PULMONARY FUNCTION TESTS Results are reliable and reproducible. Spirometry: Pre-bronchodilator FEV1 is 2.79 L, 85% predicted, normal. Pre- bronchodilator FVC is 3.72 L, 94% predicted, normal. FEV1/FVC ratio 75%, low end of normal. After bronchodilator ,there was a 9% increase in FEV1, 3.03 L, 92% predicted. There is a 4% increase in the FVC, 3.85 L, 98% predicted. The EFZ92-50% is 2.26 L, 57% predicted and this increases 23%. After bronchodilator the FEF 25-75 becomes 2.76 L, 70% predicted. This is 500 mL which is significant. Lung volumes: Total lung capacity is 4.51 L, 81% predicted, low end of normal. Residual volume is 0.79 L, 48% predicted. RV/TLC is 18%, low. There is no hyperinflation or air trapping. Airway resistance is 254% predicted, elevated. Diffusion: DLCO is 32.2, 131% predicted, elevated. DLCO /VA 6.58, 139%, elevate d. Flow volume loop: The expiratory loop was normal. There was one inspiratory loop that was normal. It is customary to have 3 good loops. IMPRESSION: This study shows a small airways pattern with robust response to bronchodilator, normal diffusion. And the proper clinical setting this may be consistent with asthma. I do not see a prior study for comparison. Alecia Carlos MD
== END 2022-09-05 12:42 | disposition home or self-care (01) ==
LOC: CHSCARD 12:42
PROVIDERS: PCP Nurse Practitioner Family; Visit Provider Nurse Practitioner Family
DX: R06.2 Wheezing (principal); J45.20 Mild intermittent asthma, uncomplicated; R94.2 Abnormal results of pulmonary function studies
CPT/HCPCS: 94060; 94726; 94729

== ENCOUNTER 2023-04-14 04:40 | Inpatient (IN) | payer BC, OTHER, SELFPAY ==
[2023-04-14] VITALS (126 sets, daily range): BP systolic 98–137; BP diastolic 44–88; PULSE 75–114; RESP 14–25; TEMP 36.4–37.2; O2SAT 65–100; BMI 29.9
--- NOTE | 2023-04-14 04:40 | LDADM ---
This patient, Emma Mazariegos, was admitted to Labor/Delivery/Recovery 104 on 04/14/23 at 04:40. Plans for labor, pain management and were discussed with patient. Patient/family oriented to hospital policies and general routines including ID bracelet, bed and alarms, visiting hours, pain management, procedures, bathroom and other care routines, personal items, smoking policy, room service/diet and guest tray routines, security routines, and visiting hours. Patient/Family are encouraged to report perceived risks to care and to ask questions if they do not understand what they are told or what they should do. See OBIX for further documentation.
[2023-04-14 05:19] LABS: Basophils Percent Auto 0.3 % (0.2-1.2); Eosinophils Absolute Auto 0.1 K/mm3 (0-0.3); Eosinophils Percent Auto 1.1 % (0-4.4); Hematocrit 38.3 % (37.0-47.0); Hemoglobin 12.6 g/dL (12.0-15.0); Immature Granulocyte Absolute 0.14 K/mm3 (0.00-0.031); Immature Granulocyte Percent A 1.2 % (0-0.5); Lymphocytes Percent Auto 29.2 % (18.3-44.2); Mean Corpuscular HGB Conc 32.9 g/dl (32-36); Mean Corpuscular Hemoglobin 31.8 pg (26-34); Mean Corpuscular Volume 96.7 fl (80-100); Mean Platelet Volume 10.3 fl (7.4-10.4); Monocytes Absolute Auto 0.8 K/mm3 (0.1-0.6); Monocytes Percent Auto 6.9 % (2.6-8.5); Neutrophils Absolute Auto 7.1 K/mm3 (1.3-6.7); Neutrophils Percent Auto 61.3 % (45.5-73.1); Platelet Count Result 202 k/mm3 (150-375); Red Blood Count 3.96 M/mm3 (4.2-5.4); Red Cell Distribution Width 13.6 % (11.5-14.5); White Blood Count 11.6 K/mm3 (4.5-10.0)
[2023-04-14] MEDS: LACTATED RINGERS 1,000 ML 125 ML IV CONT ×3 (05:27→15:58)
[2023-04-14] MEDS: OXYTOCIN 30 UNITS/NS 500 ML 30 UNITS/500 ML BAG IV CONT (05:28)
--- NOTE | 2023-04-14 05:38 | PM.IMHP ---
H&P: HPI History of Present Illness Date/Time: 04/14/23 05:38 Chief Complaint: Term Narrative: 23-year-old 3 para 2 whose last menstrual period unknown EDC is 04/17/2023, confirmed by 9 week ultrasound presents at term for induction of labor she is negative for group B strep has been uncomplicated she does take Luvox but a low risk NIPT PMFSH Past Medical History Medical History Bronchitis Perforated ear drum Shortness of breath Surgical History Surgical History History of placement of ear tubes Family History Family History Mother Hypertension Social History Social History Smoking status: Former smoker Tobacco type: e-cigarettes/vaping Second hand tobacco smoke exposure: Yes Alcohol intake: current Alcohol use details: social Substance use: never Substance use type: marijuana and tranquilizers Do You Feel Safe in your Home?: Yes Lack of Transportation: No Lack of Food: Never True Current Housing: I Have Housing Concerned About Future Housing: No Difficulty Paying Gas/Electric Bills: No Difficulty Paying for Meds: No Currently Unemployed: No Education: Associate Degree Difficulty w/ Childcare or Family Care: No Living arrangements: with family Additional living arrangements comments: Boyfriend and son Occupation/Education: unemployed Gender identity (if verbalized by the patient): Female Spiritual care concerns: No Meds Home Medications and Allergies Home Medications Medication Instructions Recorded Confirmed Type inhalational spacing device #10 ea 06/06/22 09/26/22 Rx (Aerochamber MV spacer) albuterol sulfate 90 mcg/actuation 1 inh inhalation Q4H PRN shortness 09/26/22 03/20/23 Rx aerosol inhaler (ProAir HFA) of breath or wheezing #8.5 grams budesonide 180 mcg/actuation 2 inh inhalation Q12H #1 ea 09/26/22 03/20/23 Rx breath activated powder inhaler fluvoxamine 100 mg tablet 100 mg PO HS 03/20/23 03/20/23 History Allergies Allergy/AdvReac Type Severity Reaction Status Date / Time Penicillins Allergy Intermediate hives Verified 09/26/22 15:18 Vital Signs Vital Signs - 24 hr 04/14/23 05:14 04/14/23 05:16 04/14/23 05:31 Pulse Rate 90 90 98 Blood Pressure 130/74 121/70 123/88 Oxygen Delivery 04/14/23 05:29 Pulse Rate Blood Pressure Oxygen Delivery Room Air Exam Const: General: cooperative, healthy appearing, comfortable and well groomed Nutritional Appearance: average body habitus Orientation/consciousness: oriented to person, oriented to place and oriented to time HENMT: Head: normal to inspection Neck: Neck: normal visual inspection Chest: Chest palpation & inspection: normal inspection of the chest Resp: Effort & Inspection: normal respiratory effort Cardio: Rate: regular rate Rhythm: regular rhythm Heart sounds: S1 normal heart sound present and S2 normal heart sound present GI: Inspection: normal to inspection ( gravid soft uterus) : Speculum Exam - Vagina: normal appearance of the vagina Speculum Exam - Cervix: normal appearance of the cervix ( cervix 3/50/2. AROM clear. FHTs reassuring) H&P: Results Labs Labs: Short CBC 04/14/23 Range/Units 05:12 WBC 11.6 H (4.5-10.0) K/mm3 Hgb 12.6 D (12.0-15.0) g/dL Hct 38.3 (37.0-47.0) % Plt Count 202 (150-375) k/mm3 Assessment and Plan Assessment and plan (1) Term : Code(s): Z34.90 - Encounter for supervision of normal , unspecified, unspecified trimester Status: Acute Plan medical induction of labor. Spontaneous vaginal EB expected. She is an epidural candidate
--- NOTE | 2023-04-14 06:42 | WPDANESEPP ---
Anes - Eval Pre Procedure Procedure: labor epidural Date/Time: 04/14/23 06:42 Surgeon: ashly Preop Diagnosis: pain during labor Pre Op Diagnosis: IOL Patient Data Age: 23 Gender: F Height: 1.68 m Weight: 84 kg Last Vital Signs Temp 36.7 C 04/14/23 05:01 Pulse 98 04/14/23 06:31 Resp 16 04/14/23 05:01 BP 118/65 04/14/23 06:31 O2 Del Method Room Air 04/14/23 05:29 Allergies Allergy/AdvReac Type Severity Reaction Status Date / Time Penicillins Allergy Intermediate hives Verified 09/26/22 15:18 Home Medications Medication Instructions Recorded Confirmed Type inhalational spacing device #10 ea 06/06/22 09/26/22 Rx (Aerochamber MV spacer) albuterol sulfate 90 mcg/actuation 1 inh inhalation Q4H PRN shortness 09/26/22 03/20/23 Rx aerosol inhaler (ProAir HFA) of breath or wheezing #8.5 grams budesonide 180 mcg/actuation 2 inh inhalation Q12H #1 ea 09/26/22 03/20/23 Rx breath activated powder inhaler fluvoxamine 100 mg tablet 100 mg PO HS 03/20/23 03/20/23 History Laboratory Tests 04/14/23 05:12 WBC 11.6 H K/mm3 (4.5-10.0) RBC 3.96 L M/mm3 (4.2-5.4) Hgb 12.6 D g/dL (12.0-15.0) Hct 38.3 % (37.0-47.0) MCV 96.7 fl (80-100) MCH 31.8 pg (26-34) MCHC 32.9 g/dl (32-36) RDW 13.6 % (11.5-14.5) Plt Count 202 k/mm3 (150-375) MPV 10.3 fl (7.4-10.4) Immature Gran % (Auto) 1.2 H % (0-0.5) Neut % (Auto) 61.3 % (45.5-73.1) Lymph % (Auto) 29.2 % (18.3-44.2) [place] % (Auto) 6.9 % (2.6-8.5) Eos % (Auto) 1.1 % (0-4.4) Baso % (Auto) 0.3 % (0.2-1.2) Lymph # (Auto) 3.40 H K/mm3 (0.9-3.2) [place] # (Auto) 0.8 H K/mm3 (0.1-0.6) Eos # (Auto) 0.1 K/mm3 (0-0.3) Baso # (Auto) 0.0 K/mm3 (0.0-0.1) Abs Immat Gran (auto) 0.14 H K/mm3 (0.00-0.031) Absolute Neuts (auto) 7.1 H K/mm3 (1.3-6.7) Absolute Nucleated RBC 0.0 K/mm3 (0.0-0.012) Nucleated RBC % 0.0 % (0.0-0.2) RPR Pending Blood Type O Positive Antibody Screen Negative Patient hx anesthesia problems: none Family hx anesthesia problems: none Results Review: All pre-operative results and documents have been reviewed as part of the pre-operative evaluation. [facility] Past Medical History Medical History (Updated 04/14/23 @ 06:43 by Sheree Cuba CRNA) Anxiety Bronchitis Depression Intermittent asthma, uncontrolled Perforated ear drum Shortness of breath Term Surgical History Surgical History History of placement of ear tubes Family History Family History Mother Hypertension Social History Social History Smoking status: Former smoker Tobacco type: e-cigarettes/vaping Second hand tobacco smoke exposure: Yes Alcohol intake: current Alcohol use details: social Substance use: never Substance use type: marijuana and tranquilizers Do You Feel Safe in your Home?: Yes Lack of Transportation: No Lack of Food: Never True Current Housing: I Have Housing Concerned About Future Housing: No Difficulty Paying Gas/Electric Bills: No Difficulty Paying for Meds: No Currently Unemployed: No Education: Associate Degree Difficulty w/ Childcare or Family Care: No Living arrangements: with family Additional living arrangements comments: Boyfriend and son Occupation/Education: unemployed Gender identity (if verbalized by the patient): Female Spiritual care concerns: No Exam Day of Procedure 04/14/23 06:42
--- NOTE | 2023-04-14 11:31 | PM.OBPNLAB ---
Pain Control Date/time seen: 04/14/23 11:31 Pain control: tolerating well and epidural Pelvic Exam Dilation (cm): 4 Effacement (%): 80 station: -2 Amniotic membrane status: Leaking
[2023-04-14] MEDS: ONDANSETRON INJ 4 MG/2 ML VIAL IV PUSH (12:59)
[2023-04-14] MEDS: LORATADINE 5 MG TABLET PO (15:13)
[2023-04-14 15:29] LABS: Rapid Plasma Reagin Non-Reactive (NonReactive)
--- NOTE | 2023-04-14 16:26 | PM.DS ---
DS: Admitting Diagnosis Discharge Date 04/16/2023 Admitting Diagnosis Term DS: Discharge Diagnosis Discharge Diagnosis (1) Term : Code(s): Z34.90 - Encounter for supervision of normal , unspecified, unspecified trimester Status: Acute DS: Summary Hospital Course Reason for hospitalization: patient was admitted on 04/14/2023 for induction of labor. She underwent spontaneous vaginal delivery at 4:16 p.m. of a male with Apgars of 8 and 9. Hospital Course: Her hospital course thereafter was unremarkable. She remained afebrile. She was , voiding without difficulty, eating regular diet, ambulating, and generally without complaints. She did have an episode of an asthma attack and was started on steroids and nebulizer unchanged over to albuterol Time Spent with Patient Time attestation: Total time spent providing and/or coordinating discharge services: Exam Const: General: cooperative, healthy appearing and comfortable Nutritional Appearance: average body habitus Orientation/consciousness: oriented to person, oriented to place and oriented to time Resp: Effort & Inspection: normal respiratory effort Cardio: Rate: regular rate Rhythm: regular rhythm Heart sounds: S1 normal heart sound present and S2 normal heart sound present GI: Inspection: normal to inspection ( Fundus firm below the umbilicus) DS: Data Data Completed and Pending Labs on day of discharge: Labs from last 24 hours 04/14/23 05:12 WBC 11.6 H RBC 3.96 L Hgb 12.6 D Hct 38.3 MCV 96.7 MCH 31.8 MCHC 32.9 RDW 13.6 Plt Count 202 MPV 10.3 Immature Gran % (Auto) 1.2 H Neut % (Auto) 61.3 Lymph % (Auto) 29.2 [place] % (Auto) 6.9 Eos % (Auto) 1.1 Baso % (Auto) 0.3 Lymph # (Auto) 3.40 H [place] # (Auto) 0.8 H Eos # (Auto) 0.1 Baso # (Auto) 0.0 Abs Immat Gran (auto) 0.14 H Absolute Neuts (auto) 7.1 H Absolute Nucleated RBC 0.0 Nucleated RBC % 0.0 RPR Non-reactive Blood Type O Positive Antibody Screen Negative Discharge Plan Discharge Attending physician on discharge: Cipriano Pace Discharging Clinician: Cipriano Pace Patient Disposition: Home, Self-Care Activity: may shower and pelvic rest Diet: heart healthy Wound Care Instructions: follow printed instructions Patient Instructions: Antibiotic Form Stand Alone Forms: General Discharge Information Follow-up/Referrals: Cipriano Pace MD [Physician] - Discharge Medications: No Action albuterol sulfate [ProAir HFA] 90 mcg/actuation HFA aerosol inhaler 1 inh inhalation Q4H PRN (Reason: shortness of breath or wheezing) Qty: 8.5 1RF Pulmicort Flexhaler 180 mcg/actuation aerosol powdr breath activated 2 inh inhalation Q12H Qty: 1 2RF fluvoxamine 100 mg Tablet 100 mg PO HS (DME) Aerochamber MV Spacer See Rx Instructions .Route Qty: 10 0RF Rx Instructions: As directed Date of admission: 04/14/23 04:40 Primary Care Provider: Blayne Maria Admitting Provider: Cipriano Pace Attending physician on admission: Cipriano Pace Condition: Stable
--- NOTE | 2023-04-14 16:28 | PM.OBPRVD ---
OB - Vaginal Delivery Note Procedure Delivery date: 04/14/23 Induction method: AROM Delivery augmentation: Pitocin Delivery monitor: External FHT and Internal Uterine Route of delivery: Episiotomy description: None Laceration Description: None Specimen: No Quantitative Blood Loss (ml): 61 Anesthesia type: Epidural Disposition: Floor Complications: No immediate complications [place] Baby Date of : 04/14/23 Time of : 16:16 Weeks of gestation at delivery: 39 gender: Male presentation: vertex position: Right Occiput Anterior Placenta delivery description: Spontaneous Cord Vessel Description: 3 Vessels score one minute: 8 score five minutes: 9
[2023-04-14] MEDS: OXYTOCIN 30 UNITS/NS 500 ML 30 UNITS/500 ML BAG 125 UNITS IV CONT (16:45)
--- NOTE | 2023-04-14 18:46 | OBPPTRN ---
Patient transferred to post room #292 via wheelchair. Support person present. Oriented to unit, room, information board, rooming in, admission packet and security measures. Patient verbalizes understanding.
[2023-04-14] MEDS: IBUPROFEN 600 MG TABLET PO (20:09)
--- NOTE | 2023-04-14 22:24 | PC.NURSE ---
Patient called out at 2207 complaing of SOB, this RN call pharmacy at this time to get patients albuterol inhaler. At 2209 patient called back out and explained SOB was worsening, another RN went to obtain vitals and sit with patient while this RN waited for albuterol to arrive. It was determined at 2217 that a rapid response needed to be called. This RN called rapid response and gambreler assisted in putting patient on oxygen until assistance arrived. Albuterol inhaler was retrieved at 2218 and given to RN in room with patient.
[2023-04-14] MEDS: IPRATROPIUM 0.5 MG/ALBUTEROL SULFATE 2.5 MG AMPUL.NEB 3 ML INHALATION (22:30)
[2023-04-14] MEDS: predniSONE 20 MG TABLET 40 MG PO (23:00)
--- NOTE | 2023-04-14 23:04 | PC.NURSE ---
Respiratory arrived at 2222 O2 was 97%. HR 95. Albuterol was given at 4 O2 at 96%, HR at 100, BP 137/73 bilateral lower lobe wheezing present. 4 O2 at 97%, HR 102 with continued bilateral wheezing. 0 BP 121/77, HR 114, O2 97% updaft completed, R lower wheezing decreased but remained on R. Prednisone ordered and breathing treatments ordered Q6.
[2023-04-15] VITALS (7 sets, daily range): BP systolic 110–127; BP diastolic 52–77; PULSE 80–108; RESP 16–18; TEMP 36.7–37.2; O2SAT 96–98
[2023-04-15] MEDS: IPRATROPIUM 0.5 MG/ALBUTEROL SULFATE 2.5 MG AMPUL.NEB 3 ML INHALATION (01:50)
--- NOTE | 2023-04-15 03:08 | PHAR ---
Verified - FLUVOXAMINE MALEATE 50 MG TABLET TAKE 1 AND 1/2 TABLETSBY MOUTH AT BEDTIME. sent back to [facility] for inpatient use.
[2023-04-15 04:17] LABS: Hematocrit 40.4 % (37.0-47.0); Hemoglobin 12.9 g/dL (12.0-15.0)
--- NOTE | 2023-04-15 08:01 | PM.OBPNVD ---
OB - PN: Subj Subjective Date/time seen: 04/15/23 08:01 Interval history: Had an asthma attack last. Started steroids is on albuterol. She refuses nebulizer treatment Patient comments: no complaints and pain well controlled baby status: doing well OB - PN: Obj Data Labs 04/15/23 04:09 Labs: Laboratory Results - last 24 hr 04/14/23 04/15/23 05:12 04:09 Hgb 12.9 Hct 40.4 RPR Non-reactive OB - PN A/P Plan day: 1 Plan: routine care Time Spent With Patient Time: Total time spent is greater than 50% in coordination of care (as documented) at patient's floor/unit and/or counseling patient: Time with patient: less than 15 minutes Exam Const: General: cooperative, healthy appearing and comfortable Nutritional Appearance: average body habitus Orientation/consciousness: oriented to person, oriented to place and oriented to time HENMT: Head: normal to inspection Resp: Effort & Inspection: normal respiratory effort Cardio: Rate: regular rate Rhythm: regular rhythm Heart sounds: S1 normal heart sound present and S2 normal heart sound present GI: Inspection: normal to inspection
--- NOTE | 2023-04-15 09:23 | WPDANLDPN2 ---
Anes-Prog Note L&D Date/Time: 04/15/23 09:23 Comfortable throughout: labor and delivery Neuraxial method: epidural Epidural/Spinal procedure site: clean & non-tender Neuro status: Neuro function grossly intact. Cardiovascular status: normal Respiratory status: normal Airway patency: baseline Mental status: baseline Post-Op hydration status: normal Vital Signs: Last Vital Signs Temp 36.8 C 04/15/23 08:20 Pulse 80 04/15/23 08:20 Resp 16 04/15/23 08:20 BP 110/52 L 04/15/23 08:20 Pulse Ox 97 04/15/23 08:20 O2 Del Method Room Air 04/15/23 07:40 O2 Flow Rate 10 04/14/23 22:50 Pain score (VAS): 2/10 I/O: Intake & Output 04/14/23 04/15/23 04/15/23 23:59 07:59 15:59 Intake Total 600 240 Output Total 61 Balance 539 240 Post-procedural complaints: pruritis moderate, treatment effective Patient feedback: Patient satisfied with anesthetic care.
--- NOTE | 2023-04-15 14:24 | PC.NURSE ---
[id number] Introductions were made, then consulted with patient to assess needs related to . Discussed with (Parents now have 3 children in 31 months) mother her?plans to feed?her , the?experience so far, and educated mother on her before she offers the breast to her 18 month old. has appropriate sessions, voids and stools at this time. Resources provided for inpatient and outpatient services with the feeding sheet, mom/baby guide and name written on the communication board. Mother voiced understanding of information and will call if there is a request for assistance. Reported to the Primary RN.
[2023-04-15] MEDS: predniSONE 20 MG TABLET 40 MG PO (23:25)
[2023-04-16 07:15] VITALS: BP 123/70; PULSE 80; RESP 16; TEMP 36.5; O2SAT 97
[2023-04-16] MEDS: MULTIVIT/MIN/PREN/FOL AC/IRON TABLET 1 TAB PO (07:20)
--- NOTE | 2023-04-16 07:47 | PM.OBPNVD ---
OB - PN: Subj Subjective Date/time seen: 04/16/23 07:47 Interval history: Had an asthma attack last. Started steroids is on albuterol. She refuses nebulizer treatment Patient comments: no complaints and pain well controlled baby status: doing well and nursing well OB - PN: Obj Data Labs 04/15/23 04:09 OB - PN A/P Plan day: 2 Plan: routine care, discharge home and follow up 6 weeks Time Spent With Patient Time: Total time spent is greater than 50% in coordination of care (as documented) at patient's floor/unit and/or counseling patient: Time with patient: less than 15 minutes Exam Const: General: cooperative, healthy appearing and comfortable Nutritional Appearance: average body habitus Orientation/consciousness: oriented to person, oriented to place and oriented to time Resp: Effort & Inspection: normal respiratory effort Cardio: Rate: regular rate Rhythm: regular rhythm Heart sounds: S1 normal heart sound present and S2 normal heart sound present GI: Inspection: normal to inspection
[2023-04-17 11:15] VITALS: BP 140/80; PULSE 81; RESP 18; TEMP 36.7; O2SAT 100
== END 2023-04-16 11:00 | disposition home or self-care (01) | DRG 807 ==
LOC: ANHLDR 16:28 → ANHOB2 19:04
PROVIDERS: Admitting Provider Obstetrics & Gynecology; PCP Nurse Practitioner Family; Visit Provider Obstetrics & Gynecology
DX: O99.52 Diseases of the respiratory system complicating childbirth (principal); Z37.0 Single live birth; J45.909 Unspecified asthma, uncomplicated; Z87.891 Personal history of nicotine dependence; Z88.0 Allergy status to penicillin; Z3A.39 39 weeks gestation of pregnancy
CPT/HCPCS: 36415; 85014; 85018; 85025; 86592; 86850; 86900; 86901; 94640; A9270; J2405; J2590; J2795; J7120; J7512

== ENCOUNTER 2023-06-16 18:26 | Emergency (ER) | payer BC, OTHER, SELFPAY ==
[2023-06-16] VITALS (22 sets, daily range): BP systolic 121–145; BP diastolic 71–108; PULSE 78–133; RESP 18–26; TEMP 36.6; O2SAT 91–100
--- NOTE | ~2023-06-16 | XR_ITS ---
EXAMINATION: XR chest 1V portable INDICATION: Shortness of breath TECHNIQUE: Portable AP chest at 1911 hours COMPARISON: 03/27/2022 FINDINGS: The lungs are free of acute opacities. No pleural effusion or pneumothorax. The cardiomedia stinal silhouette is normal. The visualized bones and soft tissues are unremarkable. IMPRESSION: 1. No acute cardiopulmonary abnormality. Reviewed, dictated and finalized at location F.
--- NOTE | 2023-06-16 18:32 | ED.SOB ---
HPI - SOB/Dyspnea General Chief Complaint: Shortness of Breath/Dyspnea Stated Complaint: asthma attack Time Seen by Provider: 06/16/23 18:26 Source: patient Mode of arrival: ambulatory Limitations: no limitations History of Present Illness HPI Narrative: Patient is a 23-year-old female with recurrent asthma attacks. She is here with shortness of breath and asthma flare. She is only on albuterol when needed and she is out of that medicine at this time. patient also has a cough which was present for the past week. MD elicited complaint: shortness of breath, cough and asthma attack Pertinent past history: asthma Onset (ago): minute(s) (15) Context: medication noncompliance Timing: constant Severity: severe Exacerbating factors: nothing Relieving factors: bronchodilators Known history of: asthma Associated symptoms: cough Treatment prior to arrival: none Related Data Home oxygen amount: none Home Medications Medication Instructions Recorded Confirmed fluvoxamine 100 mg tablet 100 mg PO HS 03/20/23 06/16/23 lamotrigine 25 mg tablet 25 mg PO DAILY 06/16/23 06/16/23 Allergies Allergy/AdvReac Type Severity Reaction Status Date / Time Penicillins Allergy Intermediate hives Verified 06/16/23 18:30 Review of Systems Review of Systems: All systems reviewed & are unremarkable except as noted in HPI and below Constitutional: Constitutional: Reports no additional constitutional complaints Eyes: Eyes: Reports no additional eye complaints ENT: Reports system reviewed and no additional complaints, except as documented Cardiovascular: Cardiovascular: Reports no additional cardiovascular complaints Respiratory: Respiratory: Reports no additional respiratory complaints Gastrointestinal: Gastrointestinal: Reports no additional gastrointestinal complaints Genitourinary: Genitourinary: Reports no additional female genitourinary complaints Musculoskeletal: Musculoskeletal: Reports no additional musculoskeletal complaints Integumentary/Breasts: Skin/Breast: Reports system reviewed and no additional complaints, except as docu Neurologic: Reports system reviewed and no additional complaints, except as documented Psychiatric: Psychiatric: Reports no additional psychiatric complaints Endocrine: Endocrine: Reports no additional endocrine complaints Hematologic/Lymphatic: Hematologic/Lymphatic: Reports no additional hematologic/lymphatic complaints Allergic/Immunologic: Allergic/Immunologic: Reports no additional allergic/immunologic complaints PMFSH Past Medical History Medical History Anxiety Bronchitis Depression Intermittent asthma, uncontrolled Perforated ear drum Shortness of breath Term Surgical History Surgical History History of placement of ear tubes Family History Family History Mother Hypertension Social History Social History Smoking status: Former smoker Tobacco type: e-cigarettes/vaping Second hand tobacco smoke exposure: Yes Alcohol intake: current Alcohol use details: social Substance use: never Substance use type: marijuana and tranquilizers Do You Feel Safe in your Home?: Yes Lack of Transportation: No Lack of Food: Never True Current Housing: I Have Housing Concerned About Future Housing: No Difficulty Paying Gas/Electric Bills: No Difficulty Paying for Meds: No Currently Unemployed: No Education: Associate Degree Difficulty w/ Childcare or Family Care: No Living arrangements: with family Additional living arrangements comments: Boyfriend and son Occupation/Education: unemployed Gender identity (if verbalized by the patient): Female Spiritual care concerns: No Exam Const: General: ill appearing Nutritional A
[2023-06-16] MEDS: IPRATROPIUM 0.5 MG/ALBUTEROL SULFATE 2.5 MG AMPUL.NEB 3 ML INHALATION ×2 (18:33→18:49)
[2023-06-16] MEDS: methylPREDNISolone SOD SUCC 125 MG VIAL IM (18:33)
[2023-06-16] MEDS: ALBUTEROL SULFATE NEB 1.25 MG/3 ML INH INHALATION (19:22)
[2023-06-16] MEDS: AZITHROMYCIN 250 MG TABLET 500 MG PO (20:29)
== END 2023-06-16 20:45 | disposition home or self-care (01) ==
LOC: CHSED 19:07
PROVIDERS: Emergency Provider Emergency Medicine; PCP Nurse Practitioner Family
DX: J45.901 Unspecified asthma with (acute) exacerbation (principal); Z91.148 Patient's other noncompliance with medication regimen for other reason; F41.9 Anxiety disorder, unspecified; F32.A Depression, unspecified; Z87.891 Personal history of nicotine dependence
CPT/HCPCS: 71045; 94640; 96372; 99283; A9270; J2930

== ENCOUNTER 2023-09-21 12:21 | Outpatient (CLI) | payer BC, OTHER, SELFPAY ==
--- NOTE | ~2023-09-21 | US_ITS ---
EXAMINATION: US thyroid DATE: 09/21/2023 12:45 INDICATION: Hyperthyroidism. TECHNIQUE: Multiple ultrasound images of the thyroid were obtained. COMPARISON: None. FINDINGS: The right thyroid lobe measures 4.1 x 1.4 x 1.5 cm. The left thyroid lobe measures 3.7 x 1.3 x 2.0 c m. The thyroid isthmus measures 4 mm in thickness. 7 mm solid isoechoic wider than tall nodule with s mooth to ill-defined margins and without echogenic foci at the inferior right thyroid lobe (TI-RADS 3 , mildly suspicious , FNA if >=2.5 cm, annual followup is >=1.5 cm). There is normal echotexture, ech ogenicity and vascular flow throughout the thyroid gland. IMPRESSION: 1. 7 mm TI RADS 3 right thyroid nodule which remains below size criteria for either biopsy or follow- up. Recommend clinical followup with repeat imaging if there are changes on physical exam. Reviewed, dictated and finalized at location B. IMPRESSION: 1. 7 mm TI RADS 3 right thyroid nodule which remains below size criteria for ei ther biopsy or follow-up. Recommend clinical followup with repeat imaging if th ere are changes on physical exam.
== END 2023-09-21 12:22 | disposition home or self-care (01) ==
PROVIDERS: PCP Family Medicine; Visit Provider Family Medicine
DX: E05.90 Thyrotoxicosis, unspecified without thyrotoxic crisis or storm (principal)
CPT/HCPCS: 76536

== ENCOUNTER 2024-02-21 13:03 | Emergency (ER) | payer BC, OTHER, SELFPAY ==
[2024-02-21] VITALS (28 sets, daily range): BP systolic 109–130; BP diastolic 59–76; PULSE 90–103; RESP 17–22; TEMP 36.8–36.9; O2SAT 96–98
--- NOTE | 2024-02-21 13:04 | ECG_ITS ---
Test Date: 2024-02-21 13:26:04 Measurements Intervals [place] Rate: 87 P: 69 NE: 156 QRS: 43 QRSD: 86 T: 35 QT: 355 QTc: 429 Interpretive Statements SINUS RHYTHM NORMAL ECG Electronically Signed On 02-22-2024 08:50:39 [employer]NAGER OF [employer]OL by Stephen Yanes M.D.
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
[2024-02-21] MEDS: SODIUM CHLORIDE 0.9% IV 1,000 ML 200 ML IV CONT (13:50)
[2024-02-21] MEDS: CHARCOAL ACTIVATED LIQUID 25 GM/120 ML BOTTLE 50 GM PO (13:52)
[2024-02-21 14:09] LABS: Basophils Absolute Auto 0.01 K/mm3 (0.00-0.10); Basophils Percent Auto 0.1 % (0.0-1.0); Eosinophils Absolute Auto 0.24 K/mm3 (0.02-0.50); Eosinophils Percent Auto 3.4 % (1.0-6.0); Hematocrit 40.8 % (35.0-49.0); Hemoglobin 13.9 g/dL (12.0-15.0); Immature Granulocyte Absolute 0.01 K/mm3 (0.00-0.00); Immature Granulocyte Percent A 0.1 % (0.0-0.0); Lymphocytes Absolute Auto 1.92 K/mm3 (1.10-4.50); Lymphocytes Percent Auto 27.6 % (18.0-42.0); Mean Corpuscular HGB Conc 34.1 g/dL (32-36); Mean Corpuscular Hemoglobin 28.6 pg (27.0-31.0); Mean Platelet Volume 9.9 fl (9.2-11.8); Monocytes Percent Auto 5.7 % (2.0-11.0); Neutrophils Absolute Auto 4.38 K/mm3 (1.70-7.20); Neutrophils Percent Auto 63.1 % (50.0-70.0); Platelet Count Result 314 K/mm3 (150-420); Red Blood Count 4.86 M/mm3 (4.20-5.40); Red Cell Distribution Width 12.7 % (11.6-14.4)
[2024-02-21 14:23] LABS: Partial Thromboplastin Time 27.1 Sec (23.9-30.70); Prothrombin Time 11.4 Seconds (9.50-12.1)
[2024-02-21 14:27] LABS: Amphetamine Screen Urine Negative (Negative); Barbiturate Screen Urine Negative (Negative); Benzodiazepines Screen Urine Negative (Negative); Cannabinoid Screen Urine Negative (Negative); Cocaine Screen Urine Negative (Negative); Methadone Screen Urine Negative (Negative); Opiate Screen Urine Negative (Negative); Phencyclidine Screen Urine Negative (Negative)
[2024-02-21 14:29] LABS: Add Urine Microscopic? YES; Appearance Urine Clear (Clear); Bilirubin Urine Negative (Negative); Blood Urine Negative (Negative); Color Urine Yellow (Yellow); Glucose Urine UA Negative (Negative); Ketones Urine Trace (Negative); Leukocyte Esterase Ur Negative LEU/UL (Negative); Nitrate Urine Negative (Negative); Protein Urine Trace (Negative); Specific Grav Ur 1.025 (1.010-1.020); Urobilinogen Urine 0.2 mg/dL (0.2-1.0)
[2024-02-21 14:33] LABS: Alanine Aminotransferase 40 U/L (14-59); Albumin Level 3.4 g/dL (3.4-5.0); Alkaline Phosphatase 114 U/L (46-116); Anion Gap 10 mmol/L (4-12); Aspartate Amino Transferase 16 U/L (15-37); Bilirubin,Total 0.6 mg/dL (0.00-1.00); Blood Urea Nitrogen 13 mg/dL (7-18); Calcium 9.3 mg/dL (8.5-10.1); Carbon Dioxide 24 mmol/L (21-32); Chloride 107 mmol/L (98-108); Creatine Kinase 50 U/L (26-192); Estimated CRCL calculation 108 ml/min; Estimated Glomerular Filt Rate > 60; Glucose 86 mg/dL (70-99); Magnesium 1.7 mg/dL (1.8-2.4); Osmolality Calculated 291 mOsm/kg (285-295); Potassium 4.3 mmol/L (3.5-5.1); Pregnancy On Board Control Positive; Salicylate 0.3 mg/dL (2.8-20.0); Sodium 141 mmol/L (136-145); Total Protein 6.9 g/dL (6.4-8.2); Urine Pregnancy Test Negative
[2024-02-21 14:34] LABS: Acetaminophen < 2 ug/mL (10-30); Ethanol < 3 mg/dL (0-6); Thyroid Stimulating Hormone < 0.01 uIU/mL (0.36-3.74)
[2024-02-21 14:48] LABS: SARS-CoV-2 RNA PCR Negative (Negative)
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
[2024-02-21 14:54] LABS: Influenza A QL RT-PCR Negative (Negative); Influenza B QL RT-PCR Negative (Negative); RSV RNA, RT-PCR Negative (Negative)
[2024-02-21 14:55] LABS: Amorphous Sediment Urine Moderate; Bacteria Urine 1+ /hpf; Mucus Urine Heavy /lpf; Squamous Epithelial Cell Urine Many /hpf (Few)
--- NOTE | 2024-02-21 15:34 | PC.NURSE ---
1525 PT AMBULATED TO BATHROOM WITH THIS RN. DENIES ANY LIGHTHEADED, DIZZY, NAUSEA. 1535 MEAL PROVIDED TO PATIENT REQUESTED. DR CAMARENA APPROVED.
--- NOTE | 2024-02-21 15:57 | ECG_ITS ---
Test Date: 2024-02-21 16:07:01 Measurements Intervals [place] Rate: 94 P: 65 MI: 162 QRS: 25 QRSD: 86 T: 30 QT: 362 QTc: 454 Interpretive Statements SINUS RHYTHM NORMAL ECG Electronically Signed On 02-22-2024 08:50:58 PROPERTY ASSESSMENT MONITOR by Stephen Yanes M.D.
[2024-02-21] MEDS: MAGNESIUM SULF 2 GM/WATER 50ML 2 GM/50 ML BAG IVPB (16:13)
--- NOTE | 2024-02-21 16:17 | PC.NURSE ---
1550 boyfriend here, explained no breast pump available . 1555 update to poison control, requested ekg. 1620 sean, poison control updated regarding #2 ekg.
== END 2024-02-21 17:17 | disposition short-term general hospital (02) ==
PROVIDERS: Emergency Provider Emergency Medicine; PCP Family Medicine
DX: T44.7X2A Poisoning by beta-adrenoreceptor antagonists, intentional self-harm, initial encounter (principal); F41.9 Anxiety disorder, unspecified; F32.A Depression, unspecified; Z87.891 Personal history of nicotine dependence; Z20.822 Contact with and (suspected) exposure to COVID-19; Z79.899 Other long term (current) drug therapy
CPT/HCPCS: 36415; 80053; 80143; 80179; 80307; 81001; 81025; 82077; 82550; 83735; 84443; 85025; 85610; 85730; 87637; 93005; 96365; 99285; J3475; J7030

== ENCOUNTER 2024-02-21 17:55 | Inpatient (IN) | payer BC, OTHER, SELFPAY ==
[2024-02-21 17:58] VITALS: BMI 22.7
--- NOTE | 2024-02-21 17:59 | ADMGEN ---
This patient, Emma Mazariegos, was admitted to Intensive Care Unit-7 at 1740. Patient/family oriented to hospital policies and general routines including ID bracelet, bed and alarms, visiting hours, pain management, procedures, bathroom and other care routines, personal items, smoking policy, room service/diet, and visiting hours. Information on how to activate the Rapid Response Team has been discussed. Patient/Family are encouraged to report perceived risks to care and to ask questions if they do not understand what they are told or what they should do.
[2024-02-21 18:00] VITALS: BP 120/67; PULSE 88; RESP 20; TEMP 37.1; O2SAT 97
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
[2024-02-21 19:46] LABS: Free T4 Free Thyroxine 4.54 ng/mL (0.78-2.19)
[2024-02-21 19:56] LABS: MRSA (PCR) NOT DETECTED (NOT DETECTE)
[2024-02-21 20:00] VITALS: BP 118/70; PULSE 87; RESP 18; TEMP 36.9; O2SAT 100
[2024-02-21 20:00] LABS: Thyroid Stimulating Hormone < 0.015 uIU/mL (0.465-4.680)
[2024-02-21 22:00] VITALS: BP 115/60; PULSE 86; RESP 18; O2SAT 98
[2024-02-22] VITALS (9 sets, daily range): BP systolic 114–127; BP diastolic 69–79; PULSE 84–105; RESP 12–22; TEMP 36.6–36.8; O2SAT 97–99
[2024-02-22 03:41] LABS: Hematocrit 38.2 % (37.0-47.0); Hemoglobin 12.8 g/dL (12.0-15.0); Mean Corpuscular HGB Conc 33.5 g/dl (32-36); Mean Corpuscular Hemoglobin 28.6 pg (26-34); Mean Corpuscular Volume 85.3 fl (80-100); Mean Platelet Volume 9.7 fl (7.4-10.4); Platelet Count Result 282 k/mm3 (150-375); Red Blood Count 4.48 M/mm3 (4.2-5.4); Red Cell Distribution Width 12.8 % (11.5-14.5); White Blood Count 7.2 K/mm3 (4.5-10.0)
[2024-02-22 04:45] LABS: Alanine Aminotransferase 33 U/L (6-35); Albumin Level 3.7 g/dL (3.5-5.1); Alkaline Phosphatase 100 U/L (38-126); Anion Gap 5 mmol/L (4-12); Aspartate Amino Transferase 26 U/L (14-36); Bilirubin,Total 0.7 mg/dL (0.2-1.3); Blood Urea Nitrogen 11 mg/dL (7-17); Calcium 9.1 mg/dL (8.4-10.2); Carbon Dioxide 22 mmol/L (22-30); Chloride 110 mmol/L (98-107); Estimated CRCL calculation 116 ml/min; Estimated Glomerular Filt Rate > 60; Glucose 93 mg/dL (65-110); Magnesium 1.9 mg/dL (1.6-2.3); Potassium 3.9 mmol/L (3.4-5.0); Sodium 137 mmol/L (137-145)
[2024-02-22] MEDS: methiMAzole 10 MG TAB PO (08:53)
--- NOTE | 2024-02-22 09:16 | P.CONIN_ITS ---
Assessment and Plan Assessment and plan (1) Hyperthyroidism: Code(s): E05.90 - Thyrotoxicosis, unspecified without thyrotoxic crisis or storm Status: Acute Assessment and Plan: Continue methimazole (2) Intentional propranolol overdose: Code(s): T44.7X2A - Poisoning by beta-adrenoreceptor antagonists, intentional self-harm, initial encounter Status: Acute Assessment and Plan: Patient took 20-30 pills of 10 mg prolonged yesterday around 12:00 p.m.. Her he modynamics have remained stable. EKG has showed sinus rhythm. Currently heart rate is in 100s with adequate blood pressure. Continue monitoring for 24 hours Telemetry monitoring One-to-one observer Suicide watch and precautions (3) Depression: Qualifiers: Depression Type: unspecified Qualified Code(s): F32.A - Depression, unspecified Code(s): F32.A - Depression, unspecified Status: Acute Assessment and Plan: Continue vilazodone Patient will be evaluated by crisis today (4) Intermittent asthma, uncontrolled: Code(s): J45.20 - Mild intermittent asthma, uncomplicated Status: Acute Assessment and Plan: Patient has history of intermittent asthma. On exam she has mild wheezing although she does not complain of any symptoms at rest Patient states she has not wait long time I will start her on a prednisone taper Albuterol p.r.n. Plan DVT prophylaxis -SCD Nutrition -diet ordered Code Status - Full Code Transfer out of ICU today [employer] Consult Note Consult date: 02/22/24 Reason for consult: Suicide attempt, propanolol overdose HPI: Emma Mazariegos is a 23 year old female with past medical history of anxiety, hypothyroidism and depression was transferred from [facility] after reporting with intentional propanolol overdose. Patient states she took 20-30 pills of propanolol 10 mg yesterday around 12:00 p.m.. This happened after she had argument with her boyfriend. She has history of depression and anxiety and used to see a psychiatrist but currently is being managed at [facility]. She was administered activated charcoal yesterday at the recommendation of poison control and then admitted to [facility] ICU for further evaluation management. EKG showed sinus rhythm and since then her vitals have remained stable. This morning patient is eating her breakfast and states she feels fine and denies any complaints. She has no physical complaints. She is regretful of her attempt and states that she has learned her lesson. Patient denies fever, chest pain, shortness of breath, cough, nausea vomiting, abdominal pain,, diarrhea, headache or constipation. All other systems were Sinus rhythm and 0s on the monitor 97% on room air blood pressure 1 afebrile Review of Systems Review of Systems: All systems reviewed & are unremarkable except as noted in HPI and below (HPI) [facility] Past Medical History Medical History Anxiety Depression Hyperthyroidism Intermittent asthma, uncontrolled Surgical History Surgical History History of placement of ear tubes Family History Family History Mother Hypertension Social History Social History Social History: Surrogate medical decision maker: Taiwo Mazariegos ([phone]), mother Code status: Full code. Tobacco type: e-cigarettes/vaping Second hand tobacco smoke exposure: Yes Alcohol intake: current Alcohol use details: rare alcohol use in moderation Substance use: never Do You Feel Safe in your Home?: Yes Lack of Transportation: No Lack of Food: Never True Current Housing: I Have Housing Concerned About Future Housing: No Difficulty Paying Gas/Electric Bills: No Difficulty Paying for Meds: No Currently Unemployed: No Education: Associate Degree Difficulty w/ Childcare or Family Care: No Living arrangements: with family Additional living arrangements comments: Lives with significant other and their 3 children in [place]. Additional occupation/education comments: Stay at home mom. Spiritual care concerns: No Meds Home Medications and Allergies Home Medications Medication Instructions Recorded Confirmed Type methimazole 10 mg tablet 10 mg PO DAILY 02/21/24 02/21/24 History propranolol 10 mg tablet 10 mg PO BID 02/21/24 02/21/24 History vilazodone 20 mg tablet 20 mg PO DAILY 02/21/24 02/21/24 History Allergies Allergy/AdvReac Type Severity Reaction Status Date / Time Penicillins Allergy Intermediate hives Verified 06/25/23 07:25 Vital Signs Vital Signs - 24 hr 02/21/24 18:00 02/21/24 18:00 02/21/24 20:00 Temperature 37.1 C Pulse Rate 88 88 87 Respiratory Rate 20 18 Blood Pressure 120/67 Pulse Oximetry 97 100 Oxygen Delivery Room Air 02/21/24 20:00 02/21/24 20:00 02/21/24 22:00 Temperature 36.9 C Pulse Rate 87 87 86 Respiratory Rate 18 Blood Pressure 118/70 Pulse Oximetry 100 Oxygen Delivery 02/21/24 22:00 02/22/24 00:00 02/22/24 00:00 Temperature Pulse Rate 86 93 93 Respiratory Rate 18 16 Blood Pressure 115/60 Pulse Oximetry 98 99 Oxygen Delivery Room Air 02/22/24 00:00 02/22/24 00:31 02/22/24 02:00 Temperature 36.6 C Pulse Rate 93 86 86 Respiratory Rate 16 21 H Blood Pressure 119/70 119/74 Pulse Oximetry 99 98 Oxygen Delivery 02/22/24 02:00 02/22/24 03:51 02/22/24 04:00 Temperature Pulse Rate 86 84 90 Respiratory Rate 19 17 Blood Pressure 121/76 Pulse Oximetry 97 98 Oxygen Delivery Room Air 02/22/24 04:00 02/22/24 06:00 02/22/24 06:00 Temperature 36.8 C Pulse Rate 90 88 88 Respiratory Rate 20 18 Blood Pressure 119/73 121/73 Pulse Oximetry 99 98 Oxygen Delivery 02/22/24 08:00 02/22/24 08:00 Temperature 36.6 C Pulse Rate 95 95 Respiratory Rate 12 12 Blood Pressure 127/77 Pulse Oximetry 98 98 Oxygen Delivery Room Air Exam Narrative: General: Pt is alert awake and in NAD Lungs/Chest: Trachea central Clear BS B/L, bilateral occasional wheezing Cardiac: RRR. Normal S1 S2. No murmurs Circulation: Pedal pulses are intact and symmetrical. Abdomen: Normal bowel sounds.. Soft. NT. ND. Extremities: No clubbing, cyanosis or edema. Warm : Hernandez in place Neurologic: Follows commands. Moves all 4 extremities PERRL Skin: No Rash Results Labs 02/22/24 03:30 02/22/24 03:30 Labs: Short CBC 02/22/24 Range/Units 03:30 WBC 7.2 (4.5-10.0) K/mm3 Hgb 12.8 (12.0-15.0) g/dL Hct 38.2 (37.0-47.0) % Plt Count 282 (150-375) k/mm3 BMP 02/22/24 03:30 Sodium 137 Potassium 3.9 Chloride 110 H Carbon Dioxide 22 BUN 11 Creatinine 0.60 L Glucose 93 Calcium 9.1 Liver Function 02/22/24 Range/Units 03:30 Total Bilirubin 0.7 (0.2-1.3) mg/dL AST 26 (14-36) U/L ALT 33 (6-35) U/L Alkaline Phosphatase 100 (38-126) U/L Albumin 3.7 (3.5-5.1) g/dL ECG Interpretation: Normal EKG Hospitalist [facility] Advance Care Plan I have confirmed that the patient's Advanced Care Plan is present, code status is documented, or surrogate decision maker is listed in patient medical record.: Yes Medication Reconciliation I have utilized all available resources to obtain, update and review the patients current medications (includes all prescriptions, OTC, herbals, cannabis, and nutritional supplements).: Yes
[2024-02-22] MEDS: predniSONE 10 MG TABLET 40 MG PO (10:20)
--- NOTE | 2024-02-22 11:54 | PM.IMPN ---
Progress Note: A&P Assessment and Plan (1) Hyperthyroidism: Code(s): E05.90 - Thyrotoxicosis, unspecified without thyrotoxic crisis or storm Status: Acute Assessment and Plan: Continue methimazole (2) Intentional propranolol overdose: Code(s): T44.7X2A - Poisoning by beta-adrenoreceptor antagonists, intentional self-harm, initial encounter Status: Acute Assessment and Plan: Patient took 20-30 pills of 10 mg prolonged yesterday around 12:00 p.m.. Her hemodynamics have remained stable. EKG has showed sinus rhythm. Currently heart rate is in 100s with adequate blood pressure. Continue monitoring for 24 hours Telemetry monitoring One-to-one observer patient noted she is no longer suicidal however awaiting crisis management eval. Suicide watch and precautions pending crisis management eval (3) Depression: Qualifiers: Depression Type: unspecified Qualified Code(s): F32.A - Depression, unspecified Code(s): F32.A - Depression, unspecified Status: Acute Assessment and Plan: Continue vilazodone Patient will be evaluated by crisis today (4) Intermittent asthma, uncontrolled: Code(s): J45.20 - Mild intermittent asthma, uncomplicated Status: Acute Assessment and Plan: Patient has history of intermittent asthma. On exam she has mild wheezing although she does not complain of any symptoms at rest Patient states she has not wait long time I will start her on a prednisone taper Albuterol p.r.n. Plan DVT prophylaxis -SCD Nutrition -diet ordered Code Status - Full Code Transfer out of ICU today Subjective Date/time seen: 02/22/24 11:54 Interval history: Patient comfortable at bedside vital signs stable and within normal limits patient is medically stable for discharge from medical standpoint awaiting crisis management eval. Review of Systems Review of Systems: 12 systems were reviewed and are negative except for as per HPI. All systems reviewed & are unremarkable except as noted in HPI and below (HPI) Exam Narrative: General: Pt is alert awake and in NAD Lungs/Chest: Trachea central Clear BS B/L, bilateral occasional wheezing Cardiac: RRR. Normal S1 S2. No murmurs Circulation: Pedal pulses are intact and symmetrical. Abdomen: Normal bowel sounds.. Soft. NT. ND. Extremities: No clubbing, cyanosis or edema. Warm : Hernandez in place Neurologic: Follows commands. Moves all 4 extremities PERRL Skin: No Rash Objective Data Vital Signs Vital Signs: Vital Signs - 24 hr 02/21/24 18:00 02/21/24 18:00 02/21/24 20:00 Temperature 98.8 F Pulse Rate 88 88 87 Respiratory Rate 20 18 Blood Pressure 120/67 Pulse Oximetry 97 100 Oxygen Delivery Room Air 02/21/24 20:00 02/21/24 20:00 02/21/24 22:00 Temperature 98.4 F Pulse Rate 87 87 86 Respiratory Rate 18 Blood Pressure 118/70 Pulse Oximetry 100 Oxygen Delivery 02/21/24 22:00 02/22/24 00:00 02/22/24 00:00 Temperature Pulse Rate 86 93 93 Respiratory Rate 18 16 Blood Pressure 115/60 Pulse Oximetry 98 99 Oxygen Delivery Room Air 02/22/24 00:00 02/22/24 00:31 02/22/24 02:00 Temperature 98 F Pulse Rate 93 86 86 Respiratory Rate 16 21 H Blood Pressure 119/70 119/74 Pulse Oximetry 99 98 Oxygen Delivery 02/22/24 02:00 02/22/24 03:51 02/22/24 04:00 Temperature Pulse Rate 86 84 90 Respiratory Rate 19 17 Blood Pressure 121/76 Pulse Oximetry 97 98 Oxygen Delivery Room Air 02/22/24 04:00 02/22/24 06:00 02/22/24 06:00 Temperature 98.3 F Pulse Rate 90 88 88 Respiratory Rate 20 18 Blood Pressure 119/73 121/73 Pulse Oximetry 99 98 Oxygen Delivery 02/22/24 08:00 02/22/24 08:00 02/22/24 08:00 Temperature 97.9 F Pulse Rate 95 95 102 H Respiratory Rate 12 12 Blood Pressure 127/77 Pulse Oximetry 98 98 Oxygen Delivery Room Air 02/22/24 10:00 02/22/24 10:00 Temperature Pulse Rate 93 96 Respiratory Rate 22 H Blood Pressure 114/69 Pulse Oximetry 98 Oxygen Delivery Intake/Output Intake/Output: Intake & Output 02/19/24 02/20/24 02/21/24 02/22/24 23:59 23:59 23:59 23:59 Intake Total 1210 Balance 1210 Meds/Results Medications: Active Medications Generic Name Dose Route Start Last Admin Trade Name Freq PRN Reason Stop Dose Admin Albuterol 2.5 mg 02/22/24 09:29 Albuterol Sulfate Neb 2.5 Mg/3 Ml Inh INHALATION Q4HRT PRN Shortness Of Breath/wheezing Methimazole 10 mg 02/22/24 09:00 02/22/24 08:53 Methimazole 10 Mg Tab PO 10 mg DAILY ESPERANZA Administration Miscellaneous Information 1 each 02/21/24 00:01 (Vilazodone 20 Mg Tablet) Is Nonformulary, Can Patient Bring From Home? XX 03/22/24 00:00 CLARIFY ESPERANZA Non-Formulary Medication 20 mg 02/22/24 09:00 Vilazodone PO 03/23/24 08:59 DAILY [facility] Prednisone 40 mg 02/22/24 08:00 02/22/24 10:20 Prednisone 10 Mg Tablet PO 03/05/24 07:59 40 mg DAILY@0800 ESPERANZA Administration Taper Labs Labs: Laboratory Results - last 24 hr 02/21/24 02/21/24 02/22/24 18:31 19:09 03:30 WBC 7.2 RBC 4.48 Hgb 12.8 Hct 38.2 MCV 85.3 MCH 28.6 MCHC 33.5 RDW 12.8 Plt Count 282 MPV 9.7 Sodium 137 Potassium 3.9 Chloride 110 H Carbon Dioxide 22 Anion Gap 5 BUN 11 Creatinine 0.60 L Estim Creat Clear Calc 116 Estimated GFR > 60 Glucose 93 Calcium 9.1 Magnesium 1.9 Total Bilirubin 0.7 AST 26 ALT 33 Alkaline Phosphatase 100 Total Protein 6.0 L Albumin 3.7 TSH < 0.015 L Free T4 4.54 H Nasal MRSA (PCR) Not detected Quality VTE Prophylaxis VTE prophylaxis: mechanical ordered
--- NOTE | 2024-02-22 11:56 | PC.NURSE ---
Addendum entered by Chela Mauricio RN 02/22/24 12:01: Dr. Mari and career orientation teacher updated with this information. Original Note: Spoke with Tien, pharmacist, at [facility]. Based on the case numbers give to him by this RN pt is [facility] the [facility] . With the information this RN provided to Tien, he stated if pt is back to baseline, which it sounds like she is. She can be cleared from our stand point. As long as she's not requiring any intervention medically and the doctor deems she's medically cleared. Then we will sign off on the case. I will call [facility] and update them on the situation.
[2024-02-22 15:36] LABS: Influenza A QL RT-PCR Negative (Negative); Influenza B QL RT-PCR Negative (Negative); RSV RNA, RT-PCR Negative (Negative); SARS-CoV-2 RNA PCR Negative (Negative)
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
--- NOTE | 2024-02-22 17:33 | PC.NURSE ---
Pt transferred to [facility] in [place], [place] via [facility]ando. Report called to KERI Garcias @ [phone]. Family at bedside and aware of transfer. Phone, necklace and clothing sent with pt. Propanol and breast milk given to mother.
[2024-02-24 07:35] LABS: T3 Free 16.1 pg/mL (2.3-4.2)
== END 2024-02-22 17:30 | DRG 918 ==
PROVIDERS: Internal Medicine; Physician Assistant; Admitting Provider Internal Medicine; PCP Family Medicine; Visit Provider Internal Medicine
DX: T44.7X2A Poisoning by beta-adrenoreceptor antagonists, intentional self-harm, initial encounter (principal); E05.90 Thyrotoxicosis, unspecified without thyrotoxic crisis or storm; F32.A Depression, unspecified; F41.9 Anxiety disorder, unspecified; F17.290 Nicotine dependence, other tobacco product, uncomplicated; Z20.822 Contact with and (suspected) exposure to COVID-19; J45.20 Mild intermittent asthma, uncomplicated
CPT/HCPCS: 36415; 80053; 83735; 84439; 84443; 84480; 85027; 87637; 87641; A9270; J7512

== ENCOUNTER 2024-06-26 07:00 | Emergency (ER) | payer BC, OTHER, SELFPAY ==
--- NOTE | ~2024-06-26 | XR_ITS ---
XR chest 1V portable Ordering provider: Jj Sorto MD History: 24 years Female with . sob x1 day . Comparison: June 16, 2023 FINDINGS: MEDIASTINUM: The cardiac silhouette is not enlarged. LUNGS: No infiltrates, effusions or pneumothorax. Slightly prominent markings in the lower lobes more on the left side. Follow-up advised. OTHER: No free air under the diaphragm. IMPRESSION: No definite acute cardiopulmonary pathology. Prominent markings in the left lower lobe. Follow-up adv ised. Reviewed, dictated and finalized at location A. IMPRESSION: No definite acute cardiopulmonary pathology. Prominent markings in the left low er lobe. Follow-up advised.
--- OUTSIDE RECORDS SUMMARY | 2024-06-26 07:03 | XMS_ITS | Encounter Summary ---
Author Organization [facility] Address [address] [place] [address] Care Team Providers Care Homemaker Companion Name Role Phone Cuauhtemoc Pickens MD Primary Care Provider [phone] Jeanne Pearson MD Primary Care Provider [phone] Encounter Details Date Type Department Care Team (Late st Contact Info) Description 08/28/2018 Abstract SFL CONVERSION [address] [place] [address] , Generic Conversion, Social History Tobacco Use Types Packs/Day Years Used Date Smoking Tobacco: Never Assessed Comments Unknown Sex and Gender Information Value Date Recorded Sex Assigned at Not on file Legal Sex Female 8:39 PM CDT Gender Identity Not on file Sexual Orientation Not on file documented as of this encounter Plan of Treatment Not on file documented as of this encounter Visit Diagnoses Not on filedocumented in this encounter Additional Health Concerns Infection Onset Date Last Indicated Resolved Time COVID-19 Rule Out 09/01/2020 09/01/2020 09/03/2020 3:07 PM CDT documented as of this encounter Care Teams Homemaker Companion Relationship Specialty Start Date End Date Cauuhtemoc Pickens MD [address] [place] [id number] PCP - General FAMILY PRACTICE 08/29/19 07/03/20 Jeanne Pearson MD [address] [place] [address] PCP - General FAMILY PRACTICE 07/04/20 documented as of this encounter
--- OUTSIDE RECORDS SUMMARY | 2024-06-26 07:03 | XMS_ITS | Clinical Summary ---
Author Organization [place] [id number] [facility] Address [address] [place] [address] Care Team Providers Care Ambulette Driver Name Role Phone Sultana Ruiz MD Primary Care Provider Allergies Active Allergy Reactions Criticality Noted Date Comments Penicillins Medications lurasidone (LATUDA) 20 mg tablet TAKE 1 TABLET (20 MG TOTAL) BY MOUTH DAILY WITH SUPPER FOR 15 DAYS 02/25/2024 Active methIMAzole (TAPAZOLE) 10 mg tablet 03/01/2024 Active propranoloL (INDERAL) 10 mg tablet 03/08/2024 Active Active Problems No known active problems Encounters Date Type Department Care Team Description 05/19/2024 Results Follow-Up [facility] Endocrinology Metabolism and Lipid [address] [facility] [address], [address] [place] [address] Rohit Esparza MD 04/04/2024 10:15 PM FITNESS CENTER ATTENDANT Lab [facility] [address] [place], [place] [address] Hyperthyroidism; Vitamin D insufficiency 04/04/2024 4:00 PM FITNESS CENTER ATTENDANT Office Visit [facility] Endocrinology Metabolism and Lipid [address] [facility] 5th [place] [address] [place] [address] Rohit Esparza MD Hyperthyroidism (Primary Dx); Vitamin D insufficiency from Last 3 Months Family History Medical History Relation Name Comments Heart disease Other Family history of Heart disease; Hypertension Other Family history of Hypertension; Relation Name Status Comments Other Social History Tobacco Use Types Packs/Day Years Used Date Smoking Tobacco: Never Smokeless Tobacco: Never Tobacco Cessation:Counseling Given: Not Answered Alcohol Use Standard Drinks/Week Comments No 0 (1 standard drink = 0.6 oz pur e alcohol) Comments Unknown Sex and Gender Information Value Date Recorded Sex Assigned at Not on file Legal Sex Female 1:34 AM FITNESS CENTER ATTENDANT Gender Identity Not on file Sexual Orientation Not on file Obstetrics History Last Filed Vital Signs Vital Sign Reading Time Taken Comments Blood Pressure 119/73 04/04/2024 3:57 PM FITNESS CENTER ATTENDANT Pulse 87 04/04/2024 3:57 PM FITNESS CENTER ATTENDANT Temperature 36.4 C (97.5 F) 04/04/2024 3:57 PM FITNESS CENTER ATTENDANT Respiratory Rate - - Oxygen Saturation - - Inhaled Oxygen Concentration - - Weight 65.3 kg (144 lb) 04/04/2024 3:57 PM FITNESS CENTER ATTENDANT Height 167.6 cm (5' 6 ) 04/04/2024 3:57 PM FITNESS CENTER ATTENDANT Body Mass Index 23.24 04/04/2024 3:57 PM FITNESS CENTER ATTENDANT Plan of Treatment Health Maintenance Due Date Last Done Comments Cervical Cancer Screening 2000 Depression Screening 2000 Hepatitis C Screening 2000 HPV Vaccines (1 - 3-dose series) 2015 Regular Well Visit/Exam 18-64 2018 Influenza Vaccine (#1) 2023 01/16/2009 DTaP/Tdap/Td Vaccine (8 - Td or Tdap) 09/12/2031 09/11/2021, 06/14/2020, 08/13/2004, Additional history exists Pneumococcal vaccine <65 Aged Out 09/14/2001 No longer eligible based on patient's age to complete this topic Hepatitis B Screening Completed 11/17/2001 , 2000, 2000 Varicella Vaccines Completed 11/08/2014, 11/17/2001 Procedures Procedure Name Priority Date/Time Associated Diagnosis Comments EGFR Routine 04/04/2024 5:04 PM FITNESS CENTER ATTENDANT Hyperthyroidism DIFFERENTIAL AUTO Routine 04/04/2024 5:0 4 PM FITNESS CENTER ATTENDANT Hyperthyroidism TSH Routine 04/04/2024 5:04 PM FITNESS CENTER ATTENDANT Hyperthyroidism T4, FREE Routine 04/04/2024 5:04 PM FITNESS CENTER ATTENDANT Hyperthyroidism T3, FREE Routine 04/04/2024 5:04 PM FITNESS CENTER ATTENDANT Hyperthyroidism THYROID STIMULATING IMMUNOGLOBULIN Routine 04/04/2024 5:04 PM FITNESS CENTER ATTENDANT Hyperthyroidism THYROID PEROXIDASE ANTIBODY Routine 04/04/2024 5:04 PM FITNESS CENTER ATTENDANT Hyperthyroidism COMPREHENSIVE METABOLIC PANEL Routine 04/04/2024 5:04 PM FITNESS CENTER ATTENDANT Hyperthyroidism CBC WITH AUTO DIFFERENTIAL Routine 04/04/2024 5:04 PM FITNESS CENTER ATTENDANT Hyperthyroidism VITAMIN D 25 HYDROXY Routine 04/04/2024 5:04 PM FITNESS CENTER ATTENDANT Vitamin D insufficiency MAGNESIUM Routine 04/04/2024 5:04 PM FITNESS CENTER ATTENDANT Hyperthyroidism from Last 3 Months Results * eGFR (04/04/2024 5:04 PM FITNESS CENTER ATTENDANT) eGFR >90 >=60 mL/min/1. 73 m2 Comment: Interpretive Data Reference Interval Normal >/= 90 mL/min/1.73m2 Mildly decreased* 60 - 89 mL/min/1.73m2 Mildly to moderately decreased 45 - 59 mL/min/1.73m2 Moderately to severely decreased 30 - 44 mL/min/1.73m2 Severely decreased 15 - 29 mL/min/1.73m2 Kidney Failure < 15 mL/min/1.73m2 *Relative to young adult level Estimated glomerular filtration rate is determined by the 2020 CKD-EPI equation recommended by the National Kidney Foundation (A Unifying Approach to GFR Estimation: Recommendations of the NKF-ASK Task Force on Reassessing the Inclusion of Race in Diagnosing Kidney Disease, JASN 202). The CKD-EPI equation should not be used for patients with unstable renal function and has not been validated in children and those over 70. Current interpretive data was last reviewed 2021. Blood 04/04/2024 5:04 PM FITNESS CENTER ATTENDANT 04/04/2024 5:22 PM FITNESS CENTER ATTENDANT us Rohit Esparza MD LAB BLOOD ORDERABLES Final Re sult [facility] Department [place] [address] * Differential, auto (04/04/2024 5:04 PM FITNESS CENTER ATTENDANT) Neutrophil abs 3.7 1.5 - 6.5 K/cumm Imm gran abs 0.0 0.0 - 0.1 K/cumm [facility] Lymphocyte abs 3.3 0.8 - 3.3 K/cumm [facility] Monocyte abs 0.7 0.2 - 0.8 K/cumm [facility] Eosinophil abs 0.4 0.0 - 0.5 K/cumm [facility] Basophil abs 0.1 0.0 - 0.1 K/cumm [facility] Neutrophil pct 44.8 % [facility] Comment: Interpretive Data Percent cell count reference ranges are not reported, since discordance with absolute values may lead to misinterpretation of CBC data. Current Interpretive Data was last revised on 2017. Imm gran pct 0.2 % [facility] Comment: Interpretive Data Percent cell count reference ranges are not reported, since discordance with absolute values may lead to misinterpretation of CBC data. Current Interpretive Data was last revised on 2017. Lymphocyte pct 40.8 % [facility] Comment: Interpretive Data Percent cell count reference ranges are not reported, since discordance with absolute values may lead to misinterpretation of CBC data. Current Interpretive Data was last revised on 2017. Monocyte pct 8.2 % [facility] Comment: Interpretive Data Percent cell count reference ranges are not reported, since discordance with absolute values may lead to misinterpretation of CBC data. Current Interpretive Data was last revised on 2017. Eosinophil pct 5.4 % [facility] Comment: Interpretive Data Percent cell count reference ranges are not reported, since discordance with absolute values may lead to misinterpretation of CBC data. Current Interpretive Data was last revised on 2017. Basophil pct 0.6 % [facility] Comment: Interpretive Data Percent cell count reference ranges are not reported, since discordance with absolute values may lead to misinterpretation of CBC data. Current Interpretive Data was last revised on 2017. Blood 04/04/2024 5:04 PM FITNESS CENTER ATTENDANT 04/04/2024 5:15 PM FITNESS CENTER ATTENDANT Rohit Esparza MD LAB BLOOD ORDERABLES Final Re sult Performing Organization Address City/[facility]/ZIP Co de Phone Number [facility] [place] [address] * CBC with auto differential (04/04/2024 5:04 PM FITNESS CENTER ATTENDANT) Pathologist [facility] WBC 8.2 3.8 - 9.9 K/cumm Hgb 14.0 11.9 - 15.5 g/dL [facility] Hct 43.4 35.6 - 45.5 % [facility] Plt 324 150 - 400 K/cumm [facility] MPV 10.0 9.1 - 12.3 fL [facility] RBC 5.03 3.90 - 5.20 M/cumm [facility] MCV 86.3 81.3 - 96.4 fL [facility] MCH 27.8 27.1 - 33.3 pg [facility] MCHC 32.3 32.3 - 35.7 g/dL [facility] RDW CV 12.8 11.1 - 14.9 % [facility] RDW SD 40.2 35.7 - 48.1 fL [facility] NRBC abs 0.00 0.00 - 0.01 K/cumm [facility] Blood 04/04/2024 5:04 PM FITNESS CENTER ATTENDANT 04/04/2024 5:15 PM FITNESS CENTER ATTENDANT Rohit Esparza MD LAB BLOOD ORDERABLES Final Re sult Performing Organization Address City/[facility]/ZIP Co de Phone Number [facility] Department [place] [address] * Thyroid peroxidase antibody (TPO) (04/04/2024 5:04 PM FITNESS CENTER ATTENDANT) Pathologist [facility] Anti Thyroid Peroxidase <30 <=34 IUnits/mL Comment: ATPO Interpretive Data Results may be up to 28% higher in patients receiving Itraconazole. Current interpretive data was last revised 2020. Blood 04/04/2024 5:04 PM FITNESS CENTER ATTENDANT 04/04/2024 5:15 PM FITNESS CENTER ATTENDANT Rohit Esparza MD LAB BLOOD ORDERABLES Final Re sult Performing Organization Address [facility] Co de Phone Number [facility] [place] [address] * (ABNORMAL) Thyroid stimulating immunoglobulin (04/04/2024 5:04 PM FITNESS CENTER ATTENDANT) Pathologist [facility] TSIG 3.7(H) <=1.3 [place] [facility] Comment: Test Performed by: [facility] [address] [place] [address] Appliance Mechanic: Any Louis Ph.D.; CLIA# [id number] Blood 04/04/2024 5:04 PM FITNESS CENTER ATTENDANT 04/04/2024 5:22 PM FITNESS CENTER ATTENDANT Rohit Esparza MD LAB BLOOD ORDERABLES Final Re sult Performing Organization Address [facility] [place] [address] [facility] * (ABNORMAL) Vitamin D 25 hydroxy (04/04/2024 5:04 PM FITNESS CENTER ATTENDANT) [facility] Vitamin D 25-OH 20(L) 30 - 80 ng/mL Blood 04/04/2024 5:04 PM FITNESS CENTER ATTENDANT 04/04/2024 5:15 PM FITNESS CENTER ATTENDANT us Rohit Esparza MD LAB BLOOD ORDERABLES Final Re sult Performing Organization Address [facility] Co de Phone Number [facility] [place] [address] * (ABNORMAL) T3, free (04/04/2024 5:04 PM FITNESS CENTER ATTENDANT) Free T3 9.8(H) 2.0 - 4.4 pg/mL Blood 04/04/2024 5:04 PM FITNESS CENTER ATTENDANT 04/04/2024 5:15 PM FITNESS CENTER ATTENDANT Rohit Esparza MD LAB BLOOD ORDERABLES Final Re sult Performing Organization Address [facility] Co de Phone Number [facility] [place] [address] * (ABNORMAL) TSH (04/04/2024 5:04 PM FITNESS CENTER ATTENDANT) Thyroid Stimulating Hormone <0.01(L) 0.30 - 4.20 mcIUnit/mL Blood 04/04/2024 5:04 PM FITNESS CENTER ATTENDANT 04/04/2024 5:15 PM FITNESS CENTER ATTENDANT Rohit Esparza MD LAB BLOOD ORDERABLES Final Re sult Performing Organization Address [facility] de Phone Number [facility] [place] [address] * (ABNORMAL) T4, free (04/04/2024 5:04 PM FITNESS CENTER ATTENDANT) Free T4 2.67(H) 0.90 - 1.70 ng/dL Blood 04/04/2024 5:04 PM FITNESS CENTER ATTENDANT 04/04/2024 5:15 PM FITNESS CENTER ATTENDANT Rohit Esparza MD LAB BLOOD ORDERABLES Final Re sult Performing Organization Address [facility] de Phone Number [facility] [place] [address] * Magnesium (04/04/2024 5:04 PM FITNESS CENTER ATTENDANT) Magnesium 2.1 1.4 - 2.5 mg/dL Blood 04/04/2024 5:04 PM FITNESS CENTER ATTENDANT 04/04/2024 5:15 PM FITNESS CENTER ATTENDANT us Rohit Esparza MD LAB BLOOD ORDERABLES Final Re sult [facility] Department [place] [address] * (ABNORMAL) Comprehensive metabolic panel (04/04/2024 5:04 PM FITNESS CENTER ATTENDANT) Pathologist [facility] Sodium 144 135 - 145 mmol/L Potassium, pl 4.3 3.3 - 4.9 mmol/L [facility] Chloride 108 97 - 110 mmol/L [facility] CO2 27 22 - 32 mmol/L [facility] Anion gap 9 2 - 15 mmol/L [facility] BUN 14 6 - 25 mg/dL [facility] Creatinine 0.75 0.60 - 1.10 mg/dL [facility] Glucose 85 70 - 199 mg/dL [facility] Comment: Interpretive Data Fasting glucose >/= 126 mg/dl is diagnostic for diabetes. Fasting is defined as no caloric intake for at least 8 hours. Fasting glucose between 100 mg/dl to 125 mg/dl is diagnostic of prediabetes. In a patient with classic symptoms of hyperglycemia or hyperglycemic crisis, a random glucose >/= 200 mg/dl is diagnostic for diabetes. In the absence of unequivocal hyperglycemia, results should be confirmed by repeat testing. The classification and Diagnosis of Diabetes Diabetes Care 2021; 46: S19-S40. Current interpretive data was last revised 2022. Calcium 9.6 8.5 - 10.3 mg/dL [facility] Bilirubin, total 0.4 0.1 - 1.2 mg/dL [facility] Protein, pl 7.6 6.5 - 8.5 g/dL [facility] Albumin 4.3 3.5 - 5.0 g/dL [facility] Alk phos 147(H) 40 - 130 Units/L [facility] ALT 33 7 - 45 Units/L [facility] AST 22 10 - 45 Units/L [facility] Blood 04/04/2024 5:04 PM FITNESS CENTER ATTENDANT 04/04/2024 5:15 PM FITNESS CENTER ATTENDANT us Rohit Esparza MD LAB BLOOD ORDERABLES Final Re sult [facility] Department [place] [address] from Last 3 Months Insurance [employer] [facility] [place] [employer] [place] [employer] [place] Care Teams Ambulette Driver Relationship Specialty Start Date End Date Sultana Ruiz MD [address] [place] [address] PCP - General Family Medicine 09/21/23
--- OUTSIDE RECORDS SUMMARY | 2024-06-26 07:03 | XMS_ITS | Encounter Summary ---
Author Organization [facility] Address [address] [place] [address] Phone Care Team Providers Care Produce Runner Name Role Phone Sultana Ruiz MD Primary Care Provider Encounter Details Date Type Department Care Team (Late st Contact Info) Description 05/19/2024 Results Follow-Up [facility] Endocrinology Metabolism and Lipid [address] [facility] [address], [address] [place] [address] Rohit Esparza MD [facility] [address] [place], [place] [id number] Social History Tobacco Use Types Packs/Day Years Used Date Smoking Tobacco: Never Smokeless Tobacco: Never Alcohol Use Standard Drinks/Week Comments No 0 (1 standard drink = 0.6 oz pur e alcohol) Comments Unknown Sex and Gender Information Value Date Recorded Sex Assigned at Not on file Legal Sex Female 1:34 AM NITRATE OPERATOR Gender Identity Not on file Sexual Orientation Not on file documented as of this encounter Plan of Treatment Not on file documented as of this encounter Visit Diagnoses Not on filedocumented in this encounter Care Teams Produce Runner Relationship Specialty Start Date End Date Sultana Ruiz MD [address] [place] [address] PCP - General Family Medicine 09/21/23 documented as of this encounter
--- OUTSIDE RECORDS SUMMARY | 2024-06-26 07:03 | XMS_ITS ---
Author Organization [employer] Address [address] [facility] [address] [place] [address] Care Team Providers Care Assembler Tester Name Role Phone Unavailable Primary Care Physician Unavailab le Medications Name Start Date Expiration Date SIG Comments Nexplanon 68 mg subdermal implant 06/03/2023 06/04/2023 implant 1 by subderm al route once Payers Insurance Name Company Name Plan Name Plan Number Policy Number Policy Group Number Start Date [place] [id number] N/A History of Encounters Visit Date Visit Type Provider 06/03/2023 My-IUD Tele-Med Consult Dr. Héctor Diaz MD
--- OUTSIDE RECORDS SUMMARY | 2024-06-26 07:03 | XMS_ITS | Referral Summary ---
Author Organization [facility] [address] [facility] Address [address] [place] [address] Care Team Providers Care Paper Box Cutter Name Role Phone Sultana Ruiz MD Primary Care Provider Encounters Date Type Department Care Team Description 05/19/2024 Results Follow-Up [facility] Endocrinology Metabolism and Lipid [address] [facility] [address] [place] [address] Rohit Esparza MD 04/04/2024 10:15 PM COVERSTITCH MACHINE OPERATOR Lab [facility] Advanced Medicine (CAM) [address] [place] [phone] Hyperthyroidism; Vitamin D insufficiency 04/04/2024 4:00 PM COVERSTITCH MACHINE OPERATOR Office Visit [facility] Endocrinology Metabolism and Lipid [address] [facility] 5th [place] [address] [place] [phone] Rohit Esparza MD Hyperthyroidism (Primary Dx); Vitamin D insufficiency from Last 3 Months Allergies Active Allergy Reactions Criticality Noted Date Comments Penicillins Medications lurasidone (LATUDA) 20 mg tablet TAKE 1 TABLET (20 MG TOTAL) BY MOUTH DAILY WITH SUPPER FOR 15 DAYS 02/25/2024 Active methIMAzole (TAPAZOLE) 10 mg tablet 03/01/2024 Active propranoloL (INDERAL) 10 mg tablet 03/08/2024 Active Active Problems No known active problems Social History Tobacco Use Types Packs/Day Years Used Date Smoking Tobacco: Never Smokeless Tobacco: Never Tobacco Cessation:Counseling Given: Not Answered Alcohol Use Standard Drinks/Week Comments No 0 (1 standard drink = 0.6 oz pur e alcohol) Comments Unknown Sex and Gender Information Value Date Recorded Sex Assigned at Not on file Legal Sex Female 1:34 AM COVERSTITCH MACHINE OPERATOR Gender Identity Not on file Sexual Orientation Not on file Last Filed Vital Signs Vital Sign Reading Time Taken Comments Blood Pressure 119/73 04/04/2024 3:57 PM COVERSTITCH MACHINE OPERATOR Pulse 87 04/04/2024 3:57 PM COVERSTITCH MACHINE OPERATOR Temperature 36.4 C (97.5 F) 04/04/2024 3:57 PM COVERSTITCH MACHINE OPERATOR Respiratory Rate - - Oxygen Saturation - - Inhaled Oxygen Concentration - - Weight 65.3 kg (144 lb) 04/04/2024 3:57 PM COVERSTITCH MACHINE OPERATOR Height 167.6 cm (5' 6 ) 04/04/2024 3:57 PM COVERSTITCH MACHINE OPERATOR Body Mass Index 23.24 04/04/2024 3:57 PM COVERSTITCH MACHINE OPERATOR Plan of Treatment Not on file Procedures Procedure Name Priority Date/Time Associated Diagnosis Comments EGFR Routine 04/04/2024 5:04 PM COVERSTITCH MACHINE OPERATOR Hyperthyroidism DIFFERENTIAL AUTO Routine 04/04/2024 5:0 4 PM COVERSTITCH MACHINE OPERATOR Hyperthyroidism TSH Routine 04/04/2024 5:04 PM COVERSTITCH MACHINE OPERATOR Hyperthyroidism T4, FREE Routine 04/04/2024 5:04 PM COVERSTITCH MACHINE OPERATOR Hyperthyroidism T3, FREE Routine 04/04/2024 5:04 PM COVERSTITCH MACHINE OPERATOR Hyperthyroidism THYROID STIMULATING IMMUNOGLOBULIN Routine 04/04/2024 5:04 PM COVERSTITCH MACHINE OPERATOR Hyperthyroidism THYROID PEROXIDASE ANTIBODY Routine 04/04/2024 5:04 PM COVERSTITCH MACHINE OPERATOR Hyperthyroidism COMPREHENSIVE METABOLIC PANEL Routine 04/04/2024 5:04 PM COVERSTITCH MACHINE OPERATOR Hyperthyroidism CBC WITH AUTO DIFFERENTIAL Routine 04/04/2024 5:04 PM COVERSTITCH MACHINE OPERATOR Hyperthyroidism VITAMIN D 25 HYDROXY Routine 04/04/2024 5:04 PM COVERSTITCH MACHINE OPERATOR Vitamin D insufficiency MAGNESIUM Routine 04/04/2024 5:04 PM COVERSTITCH MACHINE OPERATOR Hyperthyroidism from Last 3 Months Results * eGFR (04/04/2024 5:04 PM COVERSTITCH MACHINE OPERATOR) [facility] eGFR >90 >=60 mL/min/1. 73 m2 Comment: [...] of Race in Diagnosing Kidney Disease, JASN 2020). The CKD-EPI equation should not be used for patients with unstable renal function and has not been validated in children and those over 70. Current interpretive data was last reviewed 2021. Blood 04/04/2024 5:04 PM COVERSTITCH MACHINE OPERATOR 04/04/2024 5:22 PM COVERSTITCH MACHINE OPERATOR us Rohit Esparza MD LAB BLOOD ORDERABLES Final Re sult [facility] [address] [facility] [place] [address] * Differential, auto (04/04/2024 5:04 PM COVERSTITCH MACHINE OPERATOR) [facility] Neutrophil abs 3.7 1.5 - 6.5 K/cumm Imm gran abs 0.0 0.0 - 0.1 K/cumm [facility] Lymphocyte abs 3.3 0.8 - 3.3 K/cumm [facility] Monocyte abs 0.7 0.2 - 0.8 K/cumm [facility] Eosinophil abs 0.4 0.0 - 0.5 K/cumm [facility] Basophil abs 0.1 0.0 - 0.1 K/cumm [facility] Neutrophil pct 44.8 % [facility] Comment: Interpretive Data Percent cell count reference ranges are not reported, since discordance with absolute values may lead to misinterpretation of CBC data. Current Interpretive Data was last revised on 2017. Imm gran pct 0.2 % [facility] Comment: Interpretive Data Percent cell count reference ranges are not reported, since discordance with absolute values may lead to misinterpretation of CBC data. Current Interpretive Data was last revised on 2017. Lymphocyte pct 40.8 % [facility] Comment: Interpretive Data Percent cell count reference ranges are not reported, since discordance with absolute values may lead to misinterpretation of CBC data. Current Interpretive Data was last revised on 2017. Monocyte pct 8.2 % [facility] Comment: Interpretive Data Percent cell count reference ranges are not reported, since discordance with absolute values may lead to misinterpretation of CBC data. Current Interpretive Data was last revised on 2017. Eosinophil pct 5.4 % [facility] Comment: Interpretive Data Percent cell count reference ranges are not reported, since discordance with absolute values may lead to misinterpretation of CBC data. Current Interpretive Data was last revised on 2017. Basophil pct 0.6 % [facility] Comment: Interpretive Data Percent cell count reference ranges are not reported, since discordance with absolute values may lead to misinterpretation of CBC data. Current Interpretive Data was last revised on 2017. Blood 04/04/2024 5:04 PM COVERSTITCH MACHINE OPERATOR 04/04/2024 5:15 PM COVERSTITCH MACHINE OPERATOR us Rohit Esparza MD LAB BLOOD ORDERABLES Final Re sult [facility] [address] [facility] [place] [address] * CBC with auto differential (04/04/2024 5:04 PM COVERSTITCH MACHINE OPERATOR) WBC 8.2 3.8 - 9.9 K/cumm Hgb 14.0 11.9 - 15.5 g/dL [facility] Hct 43.4 35.6 - 45.5 % [facility] Plt 324 150 - 400 K/cumm [facility] MPV 10.0 9.1 - 12.3 fL [facility] RBC 5.03 3.90 - 5.20 M/cumm [facility] MCV 86.3 81.3 - 96.4 fL [facility] MCH 27.8 27.1 - 33.3 pg [facility] MCHC 32.3 32.3 - 35.7 g/dL [facility] RDW CV 12.8 11.1 - 14.9 % [facility] RDW SD 40.2 35.7 - 48.1 fL [facility] NRBC abs 0.00 0.00 - 0.01 K/cumm [facility] Blood 04/04/2024 5:04 PM COVERSTITCH MACHINE OPERATOR 04/04/2024 5:15 PM COVERSTITCH MACHINE OPERATOR Rohit Esparza MD LAB BLOOD ORDERABLES Final Re sult Performing Organization Address [facility] Co de Phone Number [facility] [place] [place] [address] * Thyroid peroxidase antibody (TPO) (04/04/2024 5:04 PM COVERSTITCH MACHINE OPERATOR) Anti Thyroid Peroxidase <30 <=34 IUnits/mL Comment: ATPO Interpretive Data Results may be up to 28% higher in patients receiving Itraconazole. Current interpretive data was last revised 2020. Blood 04/04/2024 5:04 PM COVERSTITCH MACHINE OPERATOR 04/04/2024 5:15 PM COVERSTITCH MACHINE OPERATOR Rohit Esparza MD LAB BLOOD ORDERABLES Final Re sult Performing Organization Address [facility] Co de Phone Number [facility] [place] [place] [address] * (ABNORMAL) Thyroid stimulating immunoglobulin (04/04/2024 5:04 PM COVERSTITCH MACHINE OPERATOR) TSIG 3.7(H) <=1.3 [place] [facility] Comment: Test Performed by: [facility] [address] [place] [address] [employer] Sales Manager: Any Louis Ph.D.; CLIA# [id number] Blood 04/04/2024 5:04 PM COVERSTITCH MACHINE OPERATOR 04/04/2024 5:22 PM COVERSTITCH MACHINE OPERATOR Result [facility] Rohit Esparza MD LAB BLOOD ORDERABLES Final Re sult Performing Organization Address [facility] Co de Phone Number [facility] [place] [place] [address] [place] [facility] * (ABNORMAL) Vitamin D 25 hydroxy (04/04/2024 5:04 PM COVERSTITCH MACHINE OPERATOR) Vitamin D 25-OH 20(L) 30 - 80 ng/mL Blood 04/04/2024 5:04 PM COVERSTITCH MACHINE OPERATOR 04/04/2024 5:15 PM COVERSTITCH MACHINE OPERATOR Result [facility] Rohit Esparza MD LAB BLOOD ORDERABLES Final Re sult Performing Organization Address [facility] de Phone Number [facility] [place] [place] [address] * (ABNORMAL) T3, free (04/04/2024 5:04 PM COVERSTITCH MACHINE OPERATOR) Free T3 9.8(H) 2.0 - 4.4 pg/mL Blood 04/04/2024 5:04 PM COVERSTITCH MACHINE OPERATOR 04/04/2024 5:15 PM COVERSTITCH MACHINE OPERATOR Result [facility] Rohit Esparza MD LAB BLOOD ORDERABLES Final Re sult Performing Organization Address [facility] Co de Phone Number [facility] [place] [address] * (ABNORMAL) TSH (04/04/2024 5:04 PM COVERSTITCH MACHINE OPERATOR) Thyroid Stimulating Hormone <0.01(L) 0.30 - 4.20 mcIUnit/mL Blood 04/04/2024 5:04 PM COVERSTITCH MACHINE OPERATOR 04/04/2024 5:15 PM COVERSTITCH MACHINE OPERATOR us Rohit Esparza MD LAB BLOOD ORDERABLES Final Re sult Performing Organization Address [facility] [place] [address] * (ABNORMAL) T4, free (04/04/2024 5:04 PM COVERSTITCH MACHINE OPERATOR) [facility] Free T4 2.67(H) 0.90 - 1.70 ng/dL Blood 04/04/2024 5:04 PM COVERSTITCH MACHINE OPERATOR 04/04/2024 5:15 PM COVERSTITCH MACHINE OPERATOR us Rohit Esparza MD LAB BLOOD ORDERABLES Final Re sult Performing Organization Address [facility] [place] [address] * Magnesium (04/04/2024 5:04 PM COVERSTITCH MACHINE OPERATOR) [facility] Magnesium 2.1 1.4 - 2.5 mg/dL Blood 04/04/2024 5:04 PM COVERSTITCH MACHINE OPERATOR 04/04/2024 5:15 PM COVERSTITCH MACHINE OPERATOR Result [facility] us Rohit Esparza MD LAB BLOOD ORDERABLES Final Re sult Performing Organization Address [facility] [place] [address] * (ABNORMAL) Comprehensive metabolic panel (04/04/2024 5:04 PM COVERSTITCH MACHINE OPERATOR) [facility] Sodium 144 135 - 145 mmol/L Potassium, pl 4.3 3.3 - 4.9 mmol/L [facility] Chloride 108 97 - 110 mmol/L [facility] CO2 27 22 - 32 mmol/L [facility] Anion gap 9 2 - 15 mmol/L [facility] BUN 14 6 - 25 mg/dL [facility] Creatinine 0.75 0.60 - 1.10 mg/dL [facility] Glucose 85 70 - 199 mg/dL [facility] Comment: Interpretive Data Fasting glucose >/= 126 [...] 2022. Calcium 9.6 8.5 - 10.3 mg/dL [facility] Bilirubin, total 0.4 0.1 - 1.2 mg/dL [facility] Protein, pl 7.6 6.5 - 8.5 g/dL [facility] Albumin 4.3 3.5 - 5.0 g/dL [facility] Alk phos 147(H) 40 - 130 Units/L [facility] ALT 33 7 - 45 Units/L [facility] AST 22 10 - 45 Units/L [facility] Blood 04/04/2024 5:04 PM COVERSTITCH MACHINE OPERATOR 04/04/2024 5:15 PM COVERSTITCH MACHINE OPERATOR us Rohit Esparza MD LAB BLOOD ORDERABLES Final Re sult [facility] [place] [address] from Last 3 Months Insurance [facility] CHOICE OOS Member Subscriber Plan / Payer (Ef fective 2023-Present) Name:Emma Mazariegos Member ID:Not on file Relation to Subscriber:Child Name:Rey Mazariegos Date of :1974 Address: [address] [place] [address] Payer ID:[id number] (NAIC) Group ID:Not on file Type: [employer] Address: [address] [place] [id number] [place] Care Teams Paper Box Cutter Relationship Specialty Start Date End Date Sultana Ruiz MD [address] [place] [id number] PCP - General Family Medicine 09/21/23
--- OUTSIDE RECORDS SUMMARY | 2024-06-26 07:03 | XMS_ITS | Clinical Summary ---
Author Organization [facility] Address [address] [place] [address] Care Team Providers Care Extracting Machine Operator Name Role Phone Jeanne Pearson MD Primary Care Provider [phone] Allergies Active Allergy Reactions Criticality Noted Date Comments Penicillins Swelling,Unknown 04/22/2017 Medications Vit-Fe Sulfate-FA ( VITAMIN OR) Take 1 capsule by mouth daily. Active fluvoxaMINE (LUVOX) 50 MG Tab Take 1 tablet (50 mg total) by mouth daily. Active fluticasone-salme terol (ADVAIR DISKUS) 100-50 MCG/ACT inhalerIndication s:Moderate persistent asthma without complication (HHS/HCC) Take 1 puff 2 times daily 60 each 6 4 Active Active Problems Problem Noted Date Diagnosed Date Moderate persistent asthma without complication (HHS/HCC) 08/20/2023 Encounter for induction of labor (HHS/HCC) 09/04 Encounter for elective induction of labor ([facility]/H CC) 09/04/2020 Family History Medical History Relation Comments No Known Problems Brother No Known Problems Father Hypertension Mother preeclampsia Thyroid Mother Thyroid Sister Relation Status Comments Brother Alive Father Alive Mother Alive Sister Alive Social History Tobacco Use Types Packs/Day Years Used Date Smoking Tobacco: Never Smokeless Tobacco: Never Tobacco Cessation:Counseling Given: Not Answered Alcohol Use Standard Drinks/Week Comments Not Currently 0 (1 standard drink = 0.6 oz pur e alcohol) Comments No Sex and Gender Information Value Date Recorded Sex Assigned at Not on file Legal Sex Female 8:39 PM CDT Gender Identity Not on file Sexual Orientation Not on file Last Filed Vital Signs Vital Sign Reading Time Taken Comments Blood Pressure 121/64 08/13/2023 9:44 AM CDT Pulse 96 08/13/2023 9:44 AM CDT Temperature 37.4 C (99.3 F) 09/06/2020 2:14 AM CDT Respiratory Rate 14 08/13/2023 9:44 AM CDT Oxygen Saturation 98% 08/13/2023 9:44 AM CDT Inhaled Oxygen Concentration - - Weight 71.7 kg (158 lb) 08/13/2023 9:44 AM CDT Height 167.6 cm (5' 6 ) 08/13/2023 9:44 AM CDT Body Mass Index 25.5 08/13/2023 9:44 AM CDT Plan of Treatment Health Maintenance Due Date Last Done Comments Cervical Cancer Screening Pap Smear (Age 21 to 29) Every 3 Years 2000 Cervical Cancer Screening 2000 Annual Physical 2003 Pneumococcal Vaccine: Pediatrics (0 to 5 Years) and At-Risk Patients (6 to 64 Years) (1 of 2 - PCV) 2006 DTaP, Tdap and Td Vaccines (6 - Tdap) 2011 08/13/2004, 11/17/2001, 2000, Additional history exists HPV Vaccines (1 - 3-dose series) 2015 Chlamydia Screening Females ages 16-24 2016 Hepatitis C 2018 Hepatitis B Vaccines (1 of 3 - 19+ 3-dose series) 2019 COVID-19 Vaccine (1 - 2023- season) 2023 PHQ-2 (Physician [place]) 03/23/2024 Meningococcal Vaccine Completed 10/29/2017, 015 Meningococcal B Vaccine Aged Out No l onger eligible based on patient's age to complete this topic RSV Immunizations Under 20 Months Aged Out No longer eligible based on patient's age to complete this topic Insurance [facility] Advance Directives * Full Code (Latest Code Status on File) Date Activated Date Inactivated Comments 09/04/2020 8:38 PM 09/06/2020 6:28 AM * Full Code Date Activated Date Inactivated Comments 09/04/2020 5:38 PM 09/04/2020 8:38 PM Care Teams Extracting Machine Operator Relationship Specialty Start Date End Date Jeanne Pearson MD [address] [place] [address] PCP - General FAMILY PRACTICE 07/04/20
[2024-06-26] MEDS: IPRATROPIUM 0.5 MG/ALBUTEROL SULFATE 2.5 MG AMPUL.NEB 3 ML INHALATION (07:04)
[2024-06-26 07:05] VITALS: BP 158/83; PULSE 109; RESP 26; TEMP 36.7; O2SAT 94
[2024-06-26] MEDS: methylPREDNISolone SOD SUCC 125 MG VIAL IV PUSH (07:06)
--- NOTE | 2024-06-26 07:12 | ED_ITS ---
HPI - Asthma General Chief Complaint: Asthma Stated Complaint: Asthma Time Seen by Provider: 06/26/24 07:09 Source: patient Mode of arrival: ambulatory Limitations: no limitations History of Present Illness HPI Narrative: Patient is a 24-year-old female with shortness of breath onset this morning. Her child has been sick also for the past week. This patient has asthma. She is not a medication. She has been using her albuterol inhaler often. MD complaint: asthma attack , shortness of breath and wheezing Onset (ago): day(s) ( One) Severity: moderate and similar to prior Context: other ( patient has increased shortness of breath and asthma exacerbation with illness in her child exposure in the past week) Associated symptoms: dry cough Asthma History: childhood onset and history of prior ED visit Treatments Prior to Arrival: inhaled bronchodilator Related Data Current Asthma Therapy: inhaled bronchodilator Home Medications ?Medication ?Instructions ?Recorded ?Confirmed ?Last Taken ?Type methimazole 10 mg tablet 10 mg PO DAILY 02/21/24 02/21/24 Unknown History propranolol 10 mg tablet 10 mg PO BID 02/21/24 02/21/24 Unknown History vilazodone 20 mg tablet 20 mg PO DAILY 02/21/24 02/21/24 Unknown History Allergies Allergy/AdvReac Type Severity Reaction Status Date / Time Penicillins Allergy Intermediate hives Verified 06/26/24 07:11 Review of Systems 2 Review of Systems: All systems reviewed & are unremarkable except as noted in HPI and below Constitutional: Constitutional: Reports no additional constitutional complaints Eyes: Eyes: Reports no additional eye complaints ENT: Reports system reviewed and no additional complaints, except as documented Cardiovascular: Cardiovascular: Reports no additional cardiovascular complaints Respiratory: Respiratory: Reports no additional respiratory complaints Gastrointestinal: Gastrointestinal: Reports no additional gastrointestinal complaints Genitourinary: Genitourinary: Reports no additional female genitourinary complaints Musculoskeletal: Musculoskeletal: Reports no additional musculoskeletal complaints Integumentary/Breasts: Skin/Breast: Reports system reviewed and no additional complaints, except as docu Neurologic: Reports system reviewed and no additional complaints, except as documented Psychiatric: Psychiatric: Reports no additional psychiatric complaints Endocrine: Endocrine: Reports no additional endocrine complaints Hematologic/Lymphatic: Hematologic/Lymphatic: Reports no additional hematologic/lymphatic complaints Allergic/Immunologic: Allergic/Immunologic: Reports no additional allergic/immunologic complaints [facility] Past Medical History Medical History Hyperthyroidism Anxiety Intermittent asthma, uncontrolled Depression Surgical History Surgical History History of placement of ear tubes Family History Family History Mother Hypertension Social History Social History Social History: Surrogate medical decision maker: Taiwo Mazariegos ([phone]), mother Code status: Full code. Tobacco type: e-cigarettes/vaping Second hand tobacco smoke exposure: Yes Alcohol intake: current Alcohol use details: rare alcohol use in moderation Substance use: never Do You Feel Safe in your Home?: Yes Lack of Transportation: No Lack of Food: Never True Current Housing: I Have Housing Concerned About Future Housing: No Difficulty Paying Gas/Electric Bills: No Difficulty Paying for Meds: No Currently Unemployed: No Education: Associate Degree Difficulty w/ Childcare or Family Care: No Living arrangements: with family Additional living arrangements comments: Lives with significant other and their 3 children in [place]. Additional occupation/education comments: Stay at home mom. Spiritual care concerns: No Exam 2 Const: General: ill appearing Nutritional Appearance: well nourished O rientation/consciousness: patient oriented x3 Limitations: no limitations HENMT: Head: normal to inspection Ears: external ears normal F estefania/Nose/Sinus: Normal external nose present Eyes: Conjunctivae: conjunctivae normal Pupils: Equal, round and reactive pupils present EOM: EOMs intact bilaterally Neck: Neck: normal visual inspection Chest: Chest palpation & inspection: normal inspection of the chest Resp: Effort & Inspection: abnormal respiratory effort, labored, no retractions, tachypneic and no use of accessory muscles Auscultation: not clear to auscultation bilaterally, no crackles, no rales, rhonchi, wheezes, breath sounds present and diminished lung sounds Other: bilateral Cardio: Rate: regular rate Rhythm: regular rhythm Heart sounds: no murmurs GI: Inspection: non-distended GI Palp: Yes Soft to palpation and No Tenderness to palpation present (GI) Auscultation: normal bowel sounds : General: Yes bladder normal to palpation Back/Spine/Pelvis: Back: no CVA tenderness Skin: General skin exam: normal color Lesions: no lesions Wounds: no wounds Neuro: General: patient oriented x3 Cranial nerves: Yes Nystagmus not present Speech: normal speech Gait exam (Neuro): Normal gait present Extrem: General: normal to inspection Psych: Mental Status: mental status grossly normal Affect: normal affect Attitude: cooperative Course Vital Signs Vital signs: Vital Signs Temperature 36.7 C 06/26/24 07:05 Pulse Rate 109 H 06/26/24 07:05 Respiratory Rate 26 H 06/26/24 07:05 Blood Pressure 158/83 H 06/26/24 07:05 Pulse Oximetry 94 06/26/24 07:05 Oxygen Delivery Room Air 06/26/24 07:05 Temperature 36.7 C 06/26/24 07:05 Pulse Rate 112 H 06/26/24 08:17 Respiratory Rate 22 H 06/26/24 08:17 Blood Pressure 126/82 06/26/24 08:17 Pulse Oximetry 95 06/26/24 08:17 Oxygen Delivery Room Air 06/26/24 08:17 MDM - Asthma MDM Narrative Medical decision making narrative: patient is a 24-year-old female with asthma exacerbation. She is short of breath. We will do pulmonary workup and give her DuoNeb/ albuterol and steroids. Lab Data Attestation: I reviewed the patient's lab results. 06/26/24 08:18 06/26/24 08:18 Labs: Lab Results 06/26/24 06/26/24 Range/Units 07:10 08:18 WBC 6.9 (4.8-10.8) K/mm3 RBC 5.19 (4.20-5.40) M/mm3 Hgb 14.9 (12.0-15.0) g/dL Hct 45.6 (35.0-49.0) % MCV 87.9 (78.0-102.0) fL MCH 28.7 (27.0-31.0) pg MCHC 32.7 (32-36) g/dL RDW 11.6 (11.6-14.4) % Plt Count 260 (150-420) K/mm3 MPV 9.5 (9.2-11.8) fl Immature Gran % (Auto) 0.3 H (0.0-0.0) % Neut % (Auto) 54.9 (50.0-70.0) % Lymph % (Auto) 38.7 (18.0-42.0) % [place] % (Auto) 4.4 (2.0-11.0) % Eos % (Auto) 1.3 (1.0-6.0) % Baso % (Auto) 0.4 (0.0-1.0) % Lymph # (Auto) 2.66 (1.10-4.50) K/mm3 [place] # (Auto) 0.30 (0.10-0.90) K/mm3 Eos # (Auto) 0.09 (0.02-0.50) K/mm3 Baso # (Auto) 0.03 (0.00-0.10) K/mm3 Abs Immat Gran (auto) 0.02 H (0.00-0.00) K/mm3 Absolute Neuts (auto) 3.78 (1.70-7.20) K/mm3 Absolute Nucleated RBC 0.00 (0.00-0.00) K/mm3 Nucleated RBC % 0.0 (0-0.0) % Sodium 141 (136-145) mmol/L Potassium 3.8 (3.5-5.1) mmol/L Chloride 106 (98-108) mmol/L Carbon Dioxide 26 (21-32) mmol/L Anion Gap 9 (4-12) mmol/L BUN 15 (7-18) mg/dL Creatinine 0.81 (0.55-1.02) mg/dL Estim Creat Clear Calc 87 ml/min Estimated GFR > 60 (59 - ) Glucose 140 H (70-99) mg/dL Calculated Osmolality 294 (285-295) mOsm/kg Calcium 9.3 (8.5-10.1) mg/dL Total Bilirubin 0.2 (0.00-1.00) mg/dL AST 10 L (15-37) U/L ALT 22 (14-59) U/L Alkaline Phosphatase 139 H (46-116) U/L Total Protein 7.6 (6.4-8.2) g/dL Albumin 3.5 (3.4-5.0) g/dL Influenza A (RT-PCR) Negative (Negative) Influenza B (RT-PCR) Negative (Negative) RSV (RT-PCR) Negative (Negative) SARS-CoV-2 RNA (RT-PCR) Positive A (Negative) Imaging Data Attestation: I personally reviewed and interpreted this imaging study as follows: Discharge Plan Discharge Clinical Impression: COVID Asthma exacerbation Qualifiers: Asthma severity: moderate Asthma persistence: unspecified Qualified Code(s): J 45.901 - Unspecified asthma with (acute) exacerbation Pneumonia Qualifiers: Pneumonia type: due to unspecified organism Laterality: left Lung location: l ower lobe of lung Qualified Code(s): J18.9 - Pneumonia, unspecified organism Patient Disposition: Home, Self-Care Condition: Improved Instructions: Antibiotic Form, Asthma (ED), Bacterial Pneumonia (DC), COVID-19 (Coronavirus Disease 2019) (ED) Patient Language: Bengali Prescriptions: New azithromycin 500 mg tablet 500 mg PO DAILY 3 Days Qty: 3 0RF prednisone 20 mg tablet 40 mg PO DAILY 3 Days Qty: 6 0RF No Action propranolol 10 mg tablet 10 mg PO BID methimazole 10 mg tablet 10 mg PO DAILY vilazodone 20 mg tablet 20 mg PO DAILY Follow-up/Referrals: UNKNOWN,DOCTOR [Non-Staff] - Time of Disposition: 08:39
[2024-06-26 07:13] VITALS: BP 134/71; PULSE 119; RESP 24; O2SAT 94
--- NOTE | 2024-06-26 07:13 | PC.NURSE ---
covid swab sent to lab
--- NOTE | 2024-06-26 07:20 | PC.NURSE ---
patient checked, sitting upright on stretcher, remains SOB. ERP notified, aware.
[2024-06-26] MEDS: ALBUTEROL SULFATE NEB 2.5 MG/3 ML INH INHALATION (07:40)
--- OUTSIDE RECORDS SUMMARY | 2024-06-26 07:46 | XMS_ITS | Encounter Summary ---
Author Organization [facility] Address [address] [place] [address] Phone Care Team Providers Care Shrimp Peeling Machine Operator Name Role Phone Sultana Ruiz MD Primary Care Provider Encounter Details Date Type Department Care Team (Late st Contact Info) Description 05/19/2024 Results Follow-Up [facility] Endocrinology Metabolism and Lipid [address] [facility] [address], [address] [place] [address] Rohit Esparza MD [facility]ly [facility] [address] [place], [place] [id number] Social History Tobacco Use Types Packs/Day Years Used Date Smoking Tobacco: Never Smokeless Tobacco: Never Alcohol Use Standard Drinks/Week Comments No 0 (1 standard drink = 0.6 oz pur e alcohol) Comments Unknown Sex and Gender Information Value Date Recorded Sex Assigned at Not on file 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
--- OUTSIDE RECORDS SUMMARY | 2024-06-26 07:46 | XMS_ITS | Referral Summary ---
Author Organization [facility] [address] [facility] Address [address] [place] [address] Care Team Providers Care Train Operations Supervisor Name Role Phone Sultana Ruiz MD Primary Care Provider Encounters Date Type Department Care Team Description 05/19/2024 Results Follow-Up [facility] Endocrinology Metabolism and Lipid [address] [facility] [address], [address] [place] [address] Rohit Esparza MD 04/04/2024 10:15 PM DIRECTOR TELEVISION NEWS Lab [facility] Advanced Medicine ([facility]) [address] [place] [phone] Hyperthyroidism; Vitamin D insufficiency 04/04/2024 4:00 PM DIRECTOR TELEVISION NEWS Office Visit [facility] Endocrinology Metabolism and Lipid [address] [facility] 5th [place] [address] [place] [phone] Rohit Esparza MD Hyperthyroidism (Primary Dx); Vitamin [...] on file Legal Sex Female 1:34 AM DIRECTOR TELEVISION NEWS Gender Identity Not on file Sexual Orientation Not on file Last Filed Vital Signs Vital Sign Reading Time Taken Comments Blood Pressure 119/73 04/04/2024 3:57 PM DIRECTOR TELEVISION NEWS Pulse 87 04/04/2024 3:57 PM DIRECTOR TELEVISION NEWS Temperature 36.4 C (97.5 F) 04/04/2024 3:57 PM DIRECTOR TELEVISION NEWS Respiratory Rate - - Oxygen Saturation - - Inhaled Oxygen Concentration - - Weight 65.3 kg (144 lb) 04/04/2024 3:57 PM DIRECTOR TELEVISION NEWS Height 167.6 cm (5' 6 ) 04/04/2024 3:57 PM DIRECTOR TELEVISION NEWS Body Mass Index 23.24 04/04/2024 3:57 PM DIRECTOR TELEVISION NEWS Plan of Treatment Not on file Procedures Procedure Name Priority Date/Time Associated Diagnosis Comments EGFR Routine 04/04/2024 5:04 PM DIRECTOR TELEVISION NEWS Hyperthyroidism DIFFERENTIAL AUTO Routine 04/04/2024 5:0 4 PM DIRECTOR TELEVISION NEWS Hyperthyroidism TSH Routine 04/04/2024 5:04 PM DIRECTOR TELEVISION NEWS Hyperthyroidism T4, FREE Routine 04/04/2024 5:04 PM DIRECTOR TELEVISION NEWS Hyperthyroidism T3, FREE Routine 04/04/2024 5:04 PM DIRECTOR TELEVISION NEWS Hyperthyroidism THYROID STIMULATING IMMUNOGLOBULIN Routine 04/04/2024 5:04 PM DIRECTOR TELEVISION NEWS Hyperthyroidism THYROID PEROXIDASE ANTIBODY Routine 04/04/2024 5:04 PM DIRECTOR TELEVISION NEWS Hyperthyroidism COMPREHENSIVE METABOLIC PANEL Routine 04/04/2024 5:04 PM DIRECTOR TELEVISION NEWS Hyperthyroidism CBC WITH AUTO DIFFERENTIAL Routine 04/04/2024 5:04 PM DIRECTOR TELEVISION NEWS Hyperthyroidism VITAMIN D 25 HYDROXY Routine 04/04/2024 5:04 PM DIRECTOR TELEVISION NEWS Vitamin D insufficiency MAGNESIUM Routine 04/04/2024 5:04 PM DIRECTOR TELEVISION NEWS Hyperthyroidism from Last 3 Months Results * eGFR (04/04/2024 5:04 PM DIRECTOR TELEVISION NEWS) [facility] eGFR >90 >=60 mL/min/1. 73 m2 Comment: [...] last reviewed 2021. Blood 04/04/2024 5:04 PM DIRECTOR TELEVISION NEWS 04/04/2024 5:22 PM DIRECTOR TELEVISION NEWS us Rohit Esparza MD LAB BLOOD ORDERABLES Final Re sult [facility] [place] [address] * Differential, auto (04/04/2024 5:04 PM DIRECTOR TELEVISION NEWS) [facility] Neutrophil abs 3.7 1.5 - 6.5 K/cumm Imm gran abs 0.0 0.0 - 0.1 K/cumm [facility] Lymphocyte abs 3.3 0.8 - 3.3 K/cumm [facility] Monocyte abs 0.7 0.2 - 0.8 K/cumm [facility] Eosinophil abs 0.4 0.0 - 0.5 K/cumm [facility] Basophil abs 0.1 0.0 - 0.1 K/cumm [facility] Neutrophil pct 44.8 % [facility] Comment: Interpretive Data Percent cell count reference ranges are not reported, since discordance with absolute values may lead to misinterpretation of CBC data. Current Interpretive Data was last revised on 2017. Imm gran pct 0.2 % [facility] Comment: Interpretive Data Percent cell count reference ranges are not reported, since discordance with absolute values may lead to misinterpretation of CBC data. Current Interpretive Data was last revised on 2017. Lymphocyte pct 40.8 % [facility] Comment: Interpretive Data Percent cell count reference ranges are not reported, since discordance with absolute values may lead to misinterpretation of CBC data. Current Interpretive Data was last revised on 2017. Monocyte pct 8.2 % [facility] Comment: Interpretive Data Percent cell count reference ranges are not reported, since discordance with absolute values may lead to misinterpretation of CBC data. Current Interpretive Data was last revised on 2017. Eosinophil pct 5.4 % [facility] Comment: Interpretive Data Percent cell count reference ranges are not reported, since discordance with absolute values may lead to misinterpretation of CBC data. Current Interpretive Data was last revised on 2017. Basophil pct 0.6 % [facility] Comment: Interpretive Data Percent cell count reference ranges are not reported, since discordance with absolute values may lead to misinterpretation of CBC data. Current Interpretive Data was last revised on 2017. Blood 04/04/2024 5:04 PM DIRECTOR TELEVISION NEWS 04/04/2024 5:15 PM DIRECTOR TELEVISION NEWS us Rohit Esparza MD LAB BLOOD ORDERABLES Final Re sult [facility] [place] [address] * CBC with auto differential (04/04/2024 5:04 PM DIRECTOR TELEVISION NEWS) WBC 8.2 3.8 - 9.9 K/cumm Hgb 14.0 11.9 - 15.5 g/dL [facility] Hct 43.4 35.6 - 45.5 % [facility] Plt 324 150 - 400 K/cumm [facility] MPV 10.0 9.1 - 12.3 fL [facility] RBC 5.03 3.90 - 5.20 M/cumm [facility] MCV 86.3 81.3 - 96.4 fL [facility] MCH 27.8 27.1 - 33.3 pg [facility] MCHC 32.3 32.3 - 35.7 g/dL [facility] RDW CV 12.8 11.1 - 14.9 % [facility] RDW SD 40.2 35.7 - 48.1 fL [facility] NRBC abs 0.00 0.00 - 0.01 K/cumm [facility] Blood 04/04/2024 5:04 PM DIRECTOR TELEVISION NEWS 04/04/2024 5:15 PM DIRECTOR TELEVISION NEWS Rohit Esparza MD LAB BLOOD ORDERABLES Final Re sult Performing Organization Address [facility] Co de Phone Number [facility] Department [place] [address] * Thyroid peroxidase antibody (TPO) (04/04/2024 5:04 PM DIRECTOR TELEVISION NEWS) Anti Thyroid Peroxidase <30 <=34 IUnits/mL Comment: ATPO Interpretive Data Results may be up to 28% higher in patients receiving Itraconazole. Current interpretive data was last revised 2020. Blood 04/04/2024 5:04 PM DIRECTOR TELEVISION NEWS 04/04/2024 5:15 PM DIRECTOR TELEVISION NEWS Rohit Esparza MD LAB BLOOD ORDERABLES Final Re sult Performing Organization Address [facility] Co de Phone Number [facility] [place] [address] * (ABNORMAL) Thyroid stimulating immunoglobulin (04/04/2024 5:04 PM DIRECTOR TELEVISION NEWS) TSIG 3.7(H) <=1.3 [place] ref Lab Comment: Test Performed by: [facility] [address] [place] [address] Radio Television Technical Director: Any Louis Ph.D.; CLIA# [id number] Blood 04/04/2024 5:04 PM DIRECTOR TELEVISION NEWS 04/04/2024 5:22 PM DIRECTOR TELEVISION NEWS Result [facility] Rohit Esparza MD LAB BLOOD ORDERABLES Final Re sult Performing Organization Address [facility] Co de Phone Number [facility] [place] [address] [facility] * (ABNORMAL) Vitamin D 25 hydroxy (04/04/2024 5:04 PM DIRECTOR TELEVISION NEWS) Vitamin D 25-OH 20(L) 30 - 80 ng/mL Blood 04/04/2024 5:04 PM DIRECTOR TELEVISION NEWS 04/04/2024 5:15 PM DIRECTOR TELEVISION NEWS Result [facility] Rohit Esparza MD LAB BLOOD ORDERABLES Final Re sult Performing Organization Address [facility] de Phone Number [facility] [place] [address] * (ABNORMAL) T3, free (04/04/2024 5:04 PM DIRECTOR TELEVISION NEWS) Free T3 9.8(H) 2.0 - 4.4 pg/mL Blood 04/04/2024 5:04 PM DIRECTOR TELEVISION NEWS 04/04/2024 5:15 PM DIRECTOR TELEVISION NEWS Result [facility] Rohit Esparza MD LAB BLOOD ORDERABLES Final Re sult Performing Organization Address [facility] Co de Phone Number [facility] [place] [address] * (ABNORMAL) TSH (04/04/2024 5:04 PM DIRECTOR TELEVISION NEWS) Thyroid Stimulating Hormone <0.01(L) 0.30 - 4.20 mcIUnit/mL Blood 04/04/2024 5:04 PM DIRECTOR TELEVISION NEWS 04/04/2024 5:15 PM DIRECTOR TELEVISION NEWS us Rohit Esparza MD LAB BLOOD ORDERABLES Final Re sult Performing Organization Address [facility] [place] [address] * (ABNORMAL) T4, free (04/04/2024 5:04 PM DIRECTOR TELEVISION NEWS) [facility] Free T4 2.67(H) 0.90 - 1.70 ng/dL Blood 04/04/2024 5:04 PM DIRECTOR TELEVISION NEWS 04/04/2024 5:15 PM DIRECTOR TELEVISION NEWS us Rohit Esparza MD LAB BLOOD ORDERABLES Final Re sult Performing Organization Address [facility] [place] [address] * Magnesium (04/04/2024 5:04 PM DIRECTOR TELEVISION NEWS) [facility] Magnesium 2.1 1.4 - 2.5 mg/dL Blood 04/04/2024 5:04 PM DIRECTOR TELEVISION NEWS 04/04/2024 5:15 PM DIRECTOR TELEVISION NEWS Result [facility] us Rohit Esparza MD LAB BLOOD ORDERABLES Final Re sult Performing Organization Address [facility] [place] [address] * (ABNORMAL) Comprehensive metabolic panel (04/04/2024 5:04 PM DIRECTOR TELEVISION NEWS) [facility] Sodium 144 135 - 145 mmol/L Potassium, pl 4.3 3.3 - 4.9 mmol/L [facility] Chloride 108 97 - 110 mmol/L [facility] CO2 27 22 - 32 mmol/L [facility] Anion gap 9 2 - 15 mmol/L [facility] BUN 14 6 - 25 mg/dL [facility] Creatinine 0.75 0.60 - 1.10 mg/dL [facility] Glucose 85 70 - 199 mg/dL [facility] Comment: Interpretive Data Fasting glucose >/= 126 [...] 2022. Calcium 9.6 8.5 - 10.3 mg/dL [facility] Bilirubin, total 0.4 0.1 - 1.2 mg/dL [facility] Protein, pl 7.6 6.5 - 8.5 g/dL [facility] Albumin 4.3 3.5 - 5.0 g/dL [facility] Alk phos 147(H) 40 - 130 Units/L [facility] ALT 33 7 - 45 Units/L [facility] AST 22 10 - 45 Units/L [facility] Blood 04/04/2024 5:04 PM DIRECTOR TELEVISION NEWS 04/04/2024 5:15 PM DIRECTOR TELEVISION NEWS us Rohit Esparza MD LAB BLOOD ORDERABLES Final Re sult [facility] [place] [address] from Last 3 Months Insurance [facility] CHOICE OOS Member Subscriber Plan / Payer (Ef fective 2023-Present) Name:Emma Mazariegos Member ID:Not on file Relation to Subscriber:Child Name:Rey Mazariegos Date of :1974 Address: [address] [place] [address] Payer ID:[id number] (NAIC) Group ID:Not on file Type: [employer] Address: [address] [place] [id number] [place] Care Teams Train Operations Supervisor Relationship Specialty Start Date End Date Sultana Ruiz MD [address] [place] [phone] PCP - General Family Medicine 09/21/23
--- OUTSIDE RECORDS SUMMARY | 2024-06-26 07:46 | XMS_ITS | Clinical Summary ---
Author Organization [facility] Address [address] [place] [address] Care Team Providers Care Editorial Director Name Role Phone Jeanne Pearson MD Primary Care Provider [phone] Allergies Active Allergy Reactions Criticality Noted Date [...] 09/04 Encounter for elective induction of labor ([facility]) 09/04/2020 Family History Medical History Relation [...] (1 - 2023- season) 2023 PHQ-2 (Physician [place]) 03/23/2024 Meningococcal Vaccine Completed 10/29/2017, 015 Meningococcal B Vaccine Aged Out No l onger eligible based on patient's age to complete this topic RSV Immunizations Under 20 Months Aged Out No longer eligible based on patient's age to complete this topic Insurance [facility] Advance Directives * Full Code (Latest Code Status on File) Date Activated Date Inactivated Comments 09/04/2020 8:38 PM 09/06/2020 6:28 AM * Full Code Date Activated Date Inactivated Comments 09/04/2020 5:38 PM 09/04/2020 8:38 PM Care Teams Editorial Director Relationship Specialty Start Date End Date Jeanne Pearson MD [address] [facility] [place] [address] PCP - General FAMILY PRACTICE 07/04/20
--- OUTSIDE RECORDS SUMMARY | 2024-06-26 07:46 | XMS_ITS | Encounter Summary ---
Author Organization [facility] Address [address] [place] [address] Care Team Providers Care Informatics Educator Name Role Phone Cuauhtemoc Pickens MD Primary Care Provider [phone] Jeanne Pearson MD Primary Care Provider [phone] Encounter Details Date Type Department Care Team (Late st Contact Info) Description 08/28/2018 Abstract SFL CONVERSION [address] [place] [address] , Generic Conversion, Social History [...] documented as of this encounter Care Teams Informatics Educator Relationship Specialty Start Date End Date Cuauhtemoc Pickens MD [address] [place] [phone] PCP - General FAMILY PRACTICE 08/29/19 07/03/20 Jeanne Pearson MD [address] [place] [address] PCP - General FAMILY PRACTICE 07/04/20 documented as of this encounter
--- OUTSIDE RECORDS SUMMARY | 2024-06-26 07:46 | XMS_ITS | Clinical Summary ---
Author Organization [place] [id number] Address [address] [place] [address] Care Team Providers Care Twitchell Operator Name Role Phone Sultana Ruiz MD [...] Care Team Description 05/19/2024 Results Follow-Up [facility] Endocrinology Metabolism and Lipid [address] [facility] [address] [place] [address] Rohit Esparza MD 04/04/2024 10:15 PM SPANISH INTERPRETER/TRANSLATOR Lab [facility] [address] [place], [place] [id number] Hyperthyroidism; Vitamin D insufficiency 04/04/2024 4:00 PM SPANISH INTERPRETER/TRANSLATOR Office Visit [facility] Endocrinology Metabolism and Lipid [address] [facility] 5th [place] [address] [place] [address] Rohit Esparza MD Hyperthyroidism (Primary [...] on file 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 Gender Identity Not on file Sexual Orientation Not on file Obstetrics History Last Filed Vital Signs Vital Sign Reading Time Taken Comments Blood Pressure 119/73 04/04/2024 3:57 PM SPANISH INTERPRETER/TRANSLATOR Pulse 87 04/04/2024 3:57 PM SPANISH INTERPRETER/TRANSLATOR Temperature 36.4 C (97.5 F) 04/04/2024 3:57 PM SPANISH INTERPRETER/TRANSLATOR Respiratory Rate - - Oxygen Saturation - - Inhaled Oxygen Concentration - - Weight 65.3 kg (144 lb) 04/04/2024 3:57 PM SPANISH INTERPRETER/TRANSLATOR Height 167.6 cm (5' 6 ) 04/04/2024 3:57 PM SPANISH INTERPRETER/TRANSLATOR Body Mass Index 23.24 04/04/2024 3:57 PM SPANISH INTERPRETER/TRANSLATOR Plan of Treatment Health Maintenance Due Date [...] Diagnosis Comments EGFR Routine 04/04/2024 5:04 PM SPANISH INTERPRETER/TRANSLATOR Hyperthyroidism DIFFERENTIAL AUTO Routine 04/04/2024 5:0 4 PM SPANISH INTERPRETER/TRANSLATOR Hyperthyroidism TSH Routine 04/04/2024 5:04 PM SPANISH INTERPRETER/TRANSLATOR Hyperthyroidism T4, FREE Routine 04/04/2024 5:04 PM SPANISH INTERPRETER/TRANSLATOR Hyperthyroidism T3, FREE Routine 04/04/2024 5:04 PM SPANISH INTERPRETER/TRANSLATOR Hyperthyroidism THYROID STIMULATING IMMUNOGLOBULIN Routine 04/04/2024 5:04 PM SPANISH INTERPRETER/TRANSLATOR Hyperthyroidism THYROID PEROXIDASE ANTIBODY Routine 04/04/2024 5:04 PM SPANISH INTERPRETER/TRANSLATOR Hyperthyroidism COMPREHENSIVE METABOLIC PANEL Routine 04/04/2024 5:04 PM SPANISH INTERPRETER/TRANSLATOR Hyperthyroidism CBC WITH AUTO DIFFERENTIAL Routine 04/04/2024 5:04 PM SPANISH INTERPRETER/TRANSLATOR Hyperthyroidism VITAMIN D 25 HYDROXY Routine 04/04/2024 5:04 PM SPANISH INTERPRETER/TRANSLATOR Vitamin D insufficiency MAGNESIUM Routine 04/04/2024 5:04 PM SPANISH INTERPRETER/TRANSLATOR Hyperthyroidism from Last 3 Months Results * eGFR (04/04/2024 5:04 PM SPANISH INTERPRETER/TRANSLATOR) eGFR >90 >=60 mL/min/1. 73 m2 Comment: [...] last reviewed 2021. Blood 04/04/2024 5:04 PM SPANISH INTERPRETER/TRANSLATOR 04/04/2024 5:22 PM SPANISH INTERPRETER/TRANSLATOR us Rohit Esparza MD LAB BLOOD ORDERABLES Final Re sult [facility] Department [place] [address] * Differential, auto (04/04/2024 5:04 PM SPANISH INTERPRETER/TRANSLATOR) Neutrophil abs 3.7 1.5 - 6.5 K/cumm Imm gran abs 0.0 0.0 - 0.1 K/cumm [facility] Lymphocyte abs 3.3 0.8 - 3.3 K/cumm [facility] Monocyte abs 0.7 0.2 - 0.8 K/cumm [facility] Eosinophil abs 0.4 0.0 - 0.5 K/cumm [facility] Basophil abs 0.1 0.0 - 0.1 K/cumm [facility] Neutrophil pct 44.8 % [facility] Comment: Interpretive Data Percent cell count reference ranges are not reported, since discordance with absolute values may lead to misinterpretation of CBC data. Current Interpretive Data was last revised on 2017. Imm gran pct 0.2 % [facility] Comment: Interpretive Data Percent cell count reference ranges are not reported, since discordance with absolute values may lead to misinterpretation of CBC data. Current Interpretive Data was last revised on 2017. Lymphocyte pct 40.8 % [facility] Comment: Interpretive Data Percent cell count reference ranges are not reported, since discordance with absolute values may lead to misinterpretation of CBC data. Current Interpretive Data was last revised on 2017. Monocyte pct 8.2 % [facility] Comment: Interpretive Data Percent cell count reference ranges are not reported, since discordance with absolute values may lead to misinterpretation of CBC data. Current Interpretive Data was last revised on 2017. Eosinophil pct 5.4 % [facility] Comment: Interpretive Data Percent cell count reference ranges are not reported, since discordance with absolute values may lead to misinterpretation of CBC data. Current Interpretive Data was last revised on 2017. Basophil pct 0.6 % [facility] Comment: Interpretive Data Percent cell count reference ranges are not reported, since discordance with absolute values may lead to misinterpretation of CBC data. Current Interpretive Data was last revised on 2017. Blood 04/04/2024 5:04 PM SPANISH INTERPRETER/TRANSLATOR 04/04/2024 5:15 PM SPANISH INTERPRETER/TRANSLATOR Rohit Esparza MD LAB BLOOD ORDERABLES Final Re sult Performing Organization Address City/[facility]/ZIP Co de Phone Number [facility] [place] [address] * CBC with auto differential (04/04/2024 5:04 PM SPANISH INTERPRETER/TRANSLATOR) Pathologist [facility] WBC 8.2 3.8 - 9.9 K/cumm Hgb 14.0 11.9 - 15.5 g/dL [facility] Hct 43.4 35.6 - 45.5 % [facility] Plt 324 150 - 400 K/cumm [facility] MPV 10.0 9.1 - 12.3 fL [facility] RBC 5.03 3.90 - 5.20 M/cumm [facility] MCV 86.3 81.3 - 96.4 fL [facility] MCH 27.8 27.1 - 33.3 pg [facility] MCHC 32.3 32.3 - 35.7 g/dL [facility] RDW CV 12.8 11.1 - 14.9 % [facility] RDW SD 40.2 35.7 - 48.1 fL [facility] NRBC abs 0.00 0.00 - 0.01 K/cumm [facility] Blood 04/04/2024 5:04 PM SPANISH INTERPRETER/TRANSLATOR 04/04/2024 5:15 PM SPANISH INTERPRETER/TRANSLATOR Rohit Esparza MD LAB BLOOD ORDERABLES Final Re sult Performing Organization Address City/[facility]/ZIP Co de Phone Number [facility] Department [place] [address] * Thyroid peroxidase antibody (TPO) (04/04/2024 5:04 PM SPANISH INTERPRETER/TRANSLATOR) Pathologist [facility] Anti Thyroid Peroxidase <30 <=34 IUnits/mL Comment: ATPO Interpretive Data Results may be up to 28% higher in patients receiving Itraconazole. Current interpretive data was last revised 2020. Blood 04/04/2024 5:04 PM SPANISH INTERPRETER/TRANSLATOR 04/04/2024 5:15 PM SPANISH INTERPRETER/TRANSLATOR Rohit Esparza MD LAB BLOOD ORDERABLES Final Re sult Performing Organization Address [place]/[facility] Co de Phone Number [facility] [place] [address] * (ABNORMAL) Thyroid stimulating immunoglobulin (04/04/2024 5:04 PM SPANISH INTERPRETER/TRANSLATOR) Pathologist [facility] TSIG 3.7(H) <=1.3 [place] ref Lab Comment: Test Performed by: [facility] [address] [place] [address] Improvement Rn: Any Louis Ph.D.; CLIA# [id number] Blood 04/04/2024 5:04 PM SPANISH INTERPRETER/TRANSLATOR 04/04/2024 5:22 PM SPANISH INTERPRETER/TRANSLATOR Rohit Esparza MD LAB BLOOD ORDERABLES Final Re sult Performing Organization Address [facility] [place] [address] [facility] * (ABNORMAL) Vitamin D 25 hydroxy (04/04/2024 5:04 PM SPANISH INTERPRETER/TRANSLATOR) [facility] Vitamin D 25-OH 20(L) 30 - 80 ng/mL Blood 04/04/2024 5:04 PM SPANISH INTERPRETER/TRANSLATOR 04/04/2024 5:15 PM SPANISH INTERPRETER/TRANSLATOR us Rohit Esparza MD LAB BLOOD ORDERABLES Final Re sult Performing Organization Address [place]/[facility] Co de Phone Number [facility] [place] [address] * (ABNORMAL) T3, free (04/04/2024 5:04 PM SPANISH INTERPRETER/TRANSLATOR) Free T3 9.8(H) 2.0 - 4.4 pg/mL Blood 04/04/2024 5:04 PM SPANISH INTERPRETER/TRANSLATOR 04/04/2024 5:15 PM SPANISH INTERPRETER/TRANSLATOR Rohit Esparza MD LAB BLOOD ORDERABLES Final Re sult Performing Organization Address [place]/[facility] Co de Phone Number [facility] of [employer] [place] [address] * (ABNORMAL) TSH (04/04/2024 5:04 PM SPANISH INTERPRETER/TRANSLATOR) Thyroid Stimulating Hormone <0.01(L) 0.30 - 4.20 mcIUnit/mL Blood 04/04/2024 5:04 PM SPANISH INTERPRETER/TRANSLATOR 04/04/2024 5:15 PM SPANISH INTERPRETER/TRANSLATOR Rohit Esparza MD LAB BLOOD ORDERABLES Final Re sult Performing Organization Address [place]/[facility] de Phone Number [facility] [place] [address] * (ABNORMAL) T4, free (04/04/2024 5:04 PM SPANISH INTERPRETER/TRANSLATOR) Free T4 2.67(H) 0.90 - 1.70 ng/dL Blood 04/04/2024 5:04 PM SPANISH INTERPRETER/TRANSLATOR 04/04/2024 5:15 PM SPANISH INTERPRETER/TRANSLATOR Rohit Esparza MD LAB BLOOD ORDERABLES Final Re sult Performing Organization Address [place]/[facility] de Phone Number [facility] [place] [address] * Magnesium (04/04/2024 5:04 PM SPANISH INTERPRETER/TRANSLATOR) Magnesium 2.1 1.4 - 2.5 mg/dL Blood 04/04/2024 5:04 PM SPANISH INTERPRETER/TRANSLATOR 04/04/2024 5:15 PM SPANISH INTERPRETER/TRANSLATOR us Rohit Esparza MD LAB BLOOD ORDERABLES Final Re sult [facility] Department [place] [address] * (ABNORMAL) Comprehensive metabolic panel (04/04/2024 5:04 PM SPANISH INTERPRETER/TRANSLATOR) Pathologist [facility] Sodium 144 135 - 145 mmol/L Potassium, pl 4.3 3.3 - 4.9 mmol/L [facility] Chloride 108 97 - 110 mmol/L [facility] CO2 27 22 - 32 mmol/L [facility] Anion gap 9 2 - 15 mmol/L [facility] BUN 14 6 - 25 mg/dL [facility] Creatinine 0.75 0.60 - 1.10 mg/dL [facility] Glucose 85 70 - 199 mg/dL [facility] Comment: Interpretive Data Fasting glucose [...] Calcium 9.6 8.5 - 10.3 mg/dL [facility] Bilirubin, total 0.4 0.1 - 1.2 mg/dL [facility] Protein, pl 7.6 6.5 - 8.5 g/dL [facility] Albumin 4.3 3.5 - 5.0 g/dL [facility] Alk phos 147(H) 40 - 130 Units/L [facility] ALT 33 7 - 45 Units/L [facility] AST 22 10 - 45 Units/L [facility] Blood 04/04/2024 5:04 PM SPANISH INTERPRETER/TRANSLATOR 04/04/2024 5:15 PM SPANISH INTERPRETER/TRANSLATOR us Rohit Esparza MD LAB BLOOD ORDERABLES Final Re sult [facility] Department [place] [address] from Last 3 Months Insurance Matter and Form [facility] O[facility] [employer] Care Teams Twitchell Operator Relationship Specialty Start Date End Date Sultana Ruiz MD [address] [place] [address] PCP - General Family Medicine 09/21/23
--- OUTSIDE RECORDS SUMMARY | 2024-06-26 07:46 | XMS_ITS ---
Author Organization [facility] Address [address] [facility] [address] [place] [address] Care Team Providers Care Unit Aide Tech Name Role Phone Unavailable Primary Care Physician Unavailab le Medications Name Start Date Expiration Date SIG Comments Nexplanon 68 mg subdermal implant 06/03/2023 06/04/2023 implant 1 by subderm al route once Payers Insurance Name Company Name Plan Name Plan Number Policy Number Policy Group Number Start Date [place] [id number] N/A History of Encounters Visit Date Visit Type Provider 06/03/2023 My-IUD Tele-Med Consult Dr. Héctor Diaz MD
[2024-06-26 07:52] LABS: Influenza A QL RT-PCR Negative (Negative); Influenza B QL RT-PCR Negative (Negative); RSV RNA, RT-PCR Negative (Negative); SARS-CoV-2 RNA PCR Positive (Negative)
--- NOTE | 2024-06-26 07:54 | PC.NURSE ---
patient given soda per request and ERP okay. patient reports she is feeling much improved following the second breathing treatment and medical consultant. RN monitoring. update provided.
--- NOTE | 2024-06-26 08:12 | PC.NURSE ---
carton and can supply supervisor at bedside for lab draw at this time.
[2024-06-26 08:17] VITALS: BP 126/82; PULSE 112; RESP 22; O2SAT 95
[2024-06-26 08:22] LABS: Basophils Absolute Auto 0.03 K/mm3 (0.00-0.10); Basophils Percent Auto 0.4 % (0.0-1.0); Eosinophils Absolute Auto 0.09 K/mm3 (0.02-0.50); Eosinophils Percent Auto 1.3 % (1.0-6.0); Hematocrit 45.6 % (35.0-49.0); Hemoglobin 14.9 g/dL (12.0-15.0); Immature Granulocyte Absolute 0.02 K/mm3 (0.00-0.00); Immature Granulocyte Percent A 0.3 % (0.0-0.0); Lymphocytes Absolute Auto 2.66 K/mm3 (1.10-4.50); Lymphocytes Percent Auto 38.7 % (18.0-42.0); Mean Corpuscular HGB Conc 32.7 g/dL (32-36); Mean Corpuscular Hemoglobin 28.7 pg (27.0-31.0); Mean Corpuscular Volume 87.9 fL (78.0-102.0); Mean Platelet Volume 9.5 fl (9.2-11.8); Monocytes Percent Auto 4.4 % (2.0-11.0); Neutrophils Absolute Auto 3.78 K/mm3 (1.70-7.20); Neutrophils Percent Auto 54.9 % (50.0-70.0); Platelet Count Result 260 K/mm3 (150-420); Red Blood Count 5.19 M/mm3 (4.20-5.40); Red Cell Distribution Width 11.6 % (11.6-14.4); White Blood Count 6.9 K/mm3 (4.8-10.8)
[2024-06-26 08:36] LABS: Alanine Aminotransferase 22 U/L (14-59); Albumin Level 3.5 g/dL (3.4-5.0); Alkaline Phosphatase 139 U/L (46-116); Anion Gap 9 mmol/L (4-12); Aspartate Amino Transferase 10 U/L (15-37); Bilirubin,Total 0.2 mg/dL (0.00-1.00); Blood Urea Nitrogen 15 mg/dL (7-18); Calcium 9.3 mg/dL (8.5-10.1); Carbon Dioxide 26 mmol/L (21-32); Chloride 106 mmol/L (98-108); Estimated CRCL calculation 87 ml/min; Estimated Glomerular Filt Rate > 60; Glucose 140 mg/dL (70-99); Osmolality Calculated 294 mOsm/kg (285-295); Potassium 3.8 mmol/L (3.5-5.1); Sodium 141 mmol/L (136-145); Total Protein 7.6 g/dL (6.4-8.2)
[2024-06-26] MEDS: AZITHROMYCIN 250 MG TABLET 500 MG PO (08:42)
[2024-06-26 08:50] VITALS: BP 119/84; PULSE 104; RESP 18; TEMP 36.6; O2SAT 96
== END 2024-06-26 08:51 | disposition home or self-care (01) ==
PROVIDERS: Emergency Provider Emergency Medicine; PCP Family Medicine
DX: U07.1 COVID-19 (principal); J18.9 Pneumonia, unspecified organism; J45.901 Unspecified asthma with (acute) exacerbation; F17.290 Nicotine dependence, other tobacco product, uncomplicated
CPT/HCPCS: 36415; 71045; 80053; 85025; 87637; 94640; 96374; 99284; A9270; J2919

== ENCOUNTER 2024-10-23 22:28 | Emergency (ER) | payer BC, OTHER, SELFPAY ==
--- NOTE | ~2024-10-23 | XR_ITS ---
EXAMINATION: XR chest 1V portable 10/23/2024 22:53 INDICATION: Shortness of breath and wheezing PROCEDURE: AP portable chest COMPARISON: Comparison to multiple prior studies sequentially, with oldest reviewed study dated 07/2022. FINDINGS: The lungs are clear. The cardiomediastinal silhouette is within normal limits. There are no pleural effusions. There is no pneumothorax suspected. Heart size normal. No focal air space dis ease, pulmonary edema, pleural effusion or suspected pneumothorax. IMPRESSION: 1: NO ACUTE CARDIOPULMONARY DISEASE. Reviewed, dictated and finalized at location A.
[2024-10-23 22:28] VITALS: BP 136/76; PULSE 115; RESP 20; TEMP 36.6; O2SAT 94; O2SAT 96
--- OUTSIDE RECORDS SUMMARY | 2024-10-23 22:33 | XMS_ITS | Referral Summary ---
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 Gender Identity Not on file Sexual Orientation Not on file Last Filed Vital Signs Vital Sign Reading Time Taken Comments Blood Pressure 119/73 04/04/2024 3:57 PM PET CREMATORY WORKER Pulse 87 04/04/2024 3:57 PM PET CREMATORY WORKER Temperature 36.4 C (97.5 F) 04/04/2024 3:57 PM PET CREMATORY WORKER Respiratory Rate - - Oxygen Saturation - - Inhaled Oxygen Concentration - - Weight 65.3 kg (144 lb) 04/04/2024 3:57 PM PET CREMATORY WORKER Height 167.6 cm (5' 6) 04/04/2024 3:57 PM PET CREMATORY WORKER Body Mass Index 23.24 04/04/2024 3:57 PM PET CREMATORY WORKER Plan of Treatment Not on file Insurance BLUE [facility] OOS [employer] [place] BLUE [facility] Care Teams Rodbuster Relationship Specialty Start Date End Date Sultana Ruiz MD [address] [place], [place] [phone] PCP - General Family Medicine 09/21/23
--- OUTSIDE RECORDS SUMMARY | 2024-10-23 22:33 | XMS_ITS | Encounter Summary ---
Author Organization [facility] Address [address] [place] [address] Care Team Providers Care Bench Shear Operator Name Role Phone Cuauhtemoc Pickens MD Primary Care Provider [phone] Jeanne Pearson MD Primary Care Provider [phone] Encounter Details Date Type Department Care Team (Late st Contact Info) Description 08/28/2018 Abstract SFL CONVERSION [address] [place] [address] , Generic Conversion, Social History [...] documented as of this encounter Care Teams Bench Shear Operator Relationship Specialty Start Date End Date Cuauhtemoc Pickens MD [address] [place] [phone] PCP - General FAMILY PRACTICE 08/29/19 07/03/20 Jeanne Pearson MD [address] [place] [address] PCP - General FAMILY PRACTICE 07/04/20 documented as of this encounter
--- OUTSIDE RECORDS SUMMARY | 2024-10-23 22:33 | XMS_ITS | Clinical Summary ---
Author Organization [facility] Address [address] [place] [address] Care Team Providers Care Fire Systems Inspector Name Role Phone Jeanne Pearson MD Primary Care Provider [phone] Allergies Active Allergy Reactions Criticality Noted Date Comments Penicillins Swelling,Unknown 04/22/2017 Medications Vit-Fe Sulfate-FA ( VITAMIN OR) Take 1 capsule by mouth daily. Active fluvoxaMINE (LUVOX) 50 MG Tab Take 1 tablet (50 mg total) by mouth daily. Active azithromycin (ZITHROMAX) 500 mg tablet Take 1 tablet (500 mg total) by mouth daily. Active albuterol sulfate HFA 108 (90 Base) MCG/ACT inhaler 2 puffs every 6 (six) hours as needed for Wheezing. 5 Active fluticasone-salme terol (ADVAIR DISKUS) 100-50 MCG/ACT inhalerIndication s:Moderate persistent asthma without complication (HHS/HCC) Take 1 puff 2 times daily 60 each 5 Active Active Problems Problem Noted Date Diagnosed Date Moderate persistent asthma without complication (HHS/HCC) 08/20/2023 Encounter for induction of labor (HHS/HCC) 09/04 Encounter for elective induction of labor (HHS/H CC) 09/04/2020 Encounters Date Type Department Care Team Description 09/03/2024 12:29 AM CDT - 09/03/2024 2:34 AM CDT Emergency [place] [facility] [place] [address] René Marin DO Breathing Problem Discharge Disposition: Home or Self Care (Routine Discharge) 09/03/2024 Travel from Last 3 Months Family History Medical History Relation Comments No [...] Sign Reading Time Taken Comments Blood Pressure 121/80 09/03/2024 2:30 AM CDT Pulse 116 09/03/2024 12:38 AM CDT Temperature 36.6 C (97.9 F) 09/03/2024 12:38 AM CDT Respiratory Rate 20 09/03/2024 12:3 8 AM CDT Oxygen Saturation 97% 09/03/2024 2:30 AM CDT Inhaled Oxygen Concentration - - Weight 68.4 kg (150 lb 12.8 oz) 025 12:38 AM CDT Height 167.6 cm (5' 6) 09/03/2024 12:3 8 AM CDT Body Mass Index 24.34 09/03/2024 12:38 AM CDT Plan of Treatment Health Maintenance Due Date Last Done Comments Cervical Cancer Screening Pap Smear (Age 21 to 29) Every 3 Years 2000 Cervical Cancer Screening 2000 Annual Physical 2003 DTaP, Tdap and Td Vaccines (6 - Tdap) 2011 08/13/2004, 11/17/2001, 2000, Additional history exists HPV Vaccines (1 - 3-dose series) 2015 Chlamydia Screening Females ages 16-24 2016 Hepatitis C 2018 Hepatitis B Vaccines (1 of 3 - 19+ 3-dose series) 2019 Pneumococcal Vaccine: Pediatrics (0 to 5 Years) and At-Risk Patients (6 to 49 Years) (1 of 2 - PCV) 2019 COVID-19 Vaccine (1 - 2023- season) 2023 PHQ-2 (Physician [place]) 03/23/2024 Meningococcal Vaccine Completed 10/29/2017, 015 Meningococcal B Vaccine Aged Out No l onger eligible based on patient's age to complete this topic RSV Immunizations Under 20 Months Aged Out No longer eligible based on patient's age to complete this topic Insurance [facility] BLUE [facility] Advance Directives * Full Code (Latest Code Status on File) Date Activated Date Inactivated Comments 09/04/2020 8:38 PM 09/06/2020 6:28 AM * Full Code Date Activated Date Inactivated Comments 09/04/2020 5:38 PM 09/04/2020 8:38 PM Care Teams Fire Systems Inspector Relationship Specialty Start Date End Date Jeanne Pearson MD [address] [place] [phone] PCP - General FAMILY PRACTICE 07/04/20
--- OUTSIDE RECORDS SUMMARY | 2024-10-23 22:33 | XMS_ITS | Clinical Summary ---
Author Organization [place] [id number] [facility] Address [address] [place] [address] Care Team Providers Care Livestock Sales Representative Name Role Phone Sultana Ruiz MD Primary Care Provider Allergies Active Allergy Reactions Criticality Noted Date Comments Penicillins Medications lurasidone (LATUDA) 20 mg tablet TAKE 1 TABLET (20 MG TOTAL) BY MOUTH DAILY WITH SUPPER FOR 15 DAYS 02/25/2024 Active methIMAzole (TAPAZOLE) 10 mg tablet 03/01/2024 Active propranoloL (INDERAL) 10 mg tablet 03/08/2024 Active Active Problems No known active problems Family History Medical History Relation Name Comments [...] on file Legal Sex 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:34 AM BINDERY PRODUCTION MANAGER Gender Identity Not on file Sexual Orientation Not on file Obstetrics History Last Filed Vital Signs Vital Sign Reading Time Taken Comments Blood Pressure 119/73 04/04/2024 3:57 PM BINDERY PRODUCTION MANAGER Pulse 87 04/04/2024 3:57 PM BINDERY PRODUCTION MANAGER Temperature 36.4 C (97.5 F) 04/04/2024 3:57 PM BINDERY PRODUCTION MANAGER Respiratory Rate - - Oxygen Saturation - - Inhaled Oxygen Concentration - - Weight 65.3 kg (144 lb) 04/04/2024 3:57 PM BINDERY PRODUCTION MANAGER Height 167.6 cm (5' 6) 04/04/2024 3:57 PM BINDERY PRODUCTION MANAGER Body Mass Index 23.24 04/04/2024 3:57 PM BINDERY PRODUCTION MANAGER Plan of Treatment Health Maintenance Due Date Last Done Comments Cervical Cancer Screening 2000 Depression Screening 2000 Hepatitis C Screening 2000 HPV Vaccines (1 - 3-dose series) 2015 Regular Well Visit/Exam 18-64 2018 Influenza Vaccine (#1) 2024 01/16/2009 DTaP/Tdap/Td Vaccine (8 - Td or Tdap) 09/12/2031 09/11/2021, 06/14/2020, 08/13/2004, Additional history exists Pneumococcal vaccine <65 Aged Out 09/14/2001 No longer eligible based on patient's age to complete this topic Hepatitis B Screening Completed 11/17/2001 , 2000, 2000 Varicella Vaccines Completed 11/08/2014, 11/17/2001 Insurance [employer] [facility] OOS Member Subscriber Plan / Payer (Ef fective 2023-Present) Name:Emma Mazariegos Member ID:Not on file Relation to Subscriber:Child Name:Rey Mazariegos Date of :1974 Address: [address] [address] Payer ID:[id number] (NAIC) Group ID:Not on file Type:[facility] Address: [facility] [id number] [place] [id number] [employer] [facility] Care Teams Livestock Sales Representative Relationship Specialty Start Date End Date Sultana Ruiz MD [address] [place] [id number] PCP - General Family Medicine 09/21/23
--- NOTE | 2024-10-23 22:35 | ED.ASTHMA ---
HPI - Asthma General Chief Complaint: Shortness of Breath/Dyspnea Stated Complaint: shortness of breath Time Seen by Provider: 10/23/24 22:35 Source: patient Mode of arrival: ambulatory Limitations: no limitations History of Present Illness HPI Narrative: patient is a 24-year-old female with known asthma here with an exacerbation of her asthma. She had acute onset of shortness of breath this evening and working harder to breathe so came to ER for evaluation. She tried her inhaler without success. No concerns for this evening. Patient had nausea and some abdominal discomfort that resolved at this time. MD complaint: asthma attack and shortness of breath Onset (ago): hour(s) ( One) Severity: moderate Context: other ( patient had acute onset of her shortness of breath / asthma exacerbation this evening) Associated symptoms: chest pain Asthma History: childhood onset, history of frequent attacks and history of prior ED visit Treatments Prior to Arrival: inhaled bronchodilator Related Data Current Asthma Therapy: inhaled bronchodilator and recent oral steroid Home Medications ?Medication ?Instructions ?Recorded ?Confirmed ?Last Taken ?Type methimazole 10 mg tablet 10 mg PO DAILY 02/21/24 02/21/24 Unknown History propranolol 10 mg tablet 10 mg PO BID 02/21/24 02/21/24 Unknown History vilazodone 20 mg tablet 20 mg PO DAILY 02/21/24 02/21/24 Unknown History Allergies Allergy/AdvReac Type Severity Reaction Status Date / Time Penicillins Allergy Intermediate hives Verified 10/23/24 22:37 Review of Systems Review of Systems: All systems reviewed & are unremarkable except as noted in HPI and below Constitutional: Constitutional: Reports no additional constitutional complaints Eyes: Eyes: Reports no additional eye complaints ENT: Reports system reviewed and no additional complaints, except as documented Cardiovascular: Cardiovascular: Reports no additional cardiovascular complaints Respiratory: Respiratory: Reports no additional respiratory complaints Gastrointestinal: Gastrointestinal: Reports no additional gastrointestinal complaints Genitourinary: Genitourinary: Reports no additional female genitourinary complaints Musculoskeletal: Musculoskeletal: Reports no additional musculoskeletal complaints Integumentary/Breasts: Skin/Breast: Reports system reviewed and no additional complaints, except as docu Neurologic: Reports system reviewed and no additional complaints, except as documented Psychiatric: Psychiatric: Reports no additional psychiatric complaints Endocrine: Endocrine: Reports no additional endocrine complaints Hematologic/Lymphatic: Hematologic/Lymphatic: Reports no additional hematologic/lymphatic complaints Allergic/Immunologic: Allergic/Immunologic: Reports no additional allergic/immunologic complaints PMFSH Past Medical History Medical History Hyperthyroidism Anxiety Intermittent asthma, uncontrolled Depression Surgical History Surgical History History of placement of ear tubes Family History Family History Mother Hypertension Social History Social History Social History: Surrogate medical decision maker: Taiwo Mazariegos ([phone]), mother Code status: Full code. Tobacco type: e-cigarettes/vaping Second hand tobacco smoke exposure: Yes Alcohol intake: current Alcohol use details: rare alcohol use in moderation Substance use: never Do You Feel Safe in your Home?: Yes Lack of Transportation: No Lack of Food: Never True Current Housing: I Have Housing Concerned About Future Housing: No Difficulty Paying Gas/Electric Bills: No Difficulty Paying for Meds: No Currently Unemployed: No Education: Associate Degree Difficulty w/ Childcare or Family Care: No Living arrangements: with family Additional living arrangements comments: Lives with significant other and their 3 children in [place]. Additional occupation/education comments: Stay at home mom. Spiritual care concerns: No Exam Const: General: healthy appearing Nutritional Appearance: well nourished Orientation/consciousness: patient oriented x3 Limitations: no limitations Other: acute distress with shortness of breath and some accessory muscle use HENMT: Head: normal to inspection Ears: external ears normal Face/Nose/Sinus: Normal external nose present Eyes: Conjunctivae: conjunctivae normal Pupils: Equal, round and reactive pupils present EOM: EOMs intact bilaterally Neck: Neck: normal visual inspection Chest: Chest palpation & inspection: normal inspection of the chest Resp: Effort & Inspection: abnormal respiratory effort, labored, retractions, tachypneic and uses accessory muscles Auscultation: not clear to auscultation bilaterally, no crackles, no rales, rhonchi, wheezes, breath sounds present and diminished lung sounds Cardio: Rate: tachycardic Rhythm: regular rhythm Heart sounds: no murmurs GI: Inspection: non-distended GI Palp: Yes Soft to palpation and No Tenderness to palpation present (GI) Auscultation: normal bowel sounds : General: Yes bladder normal to palpation Back/Spine/Pelvis: Back: no CVA tenderness Skin: General skin exam: normal color Lesions: no lesions Wounds: no wounds Neuro: General: patient oriented x3, moves all extremities and no meningeal signs Extrem: General: normal to inspection Psych: Mental Status: mental status grossly normal Affect: normal affect Attitude: cooperative Course Vital Signs Vital signs: Vital Signs Temperature 36.6 C 10/23/24 22:28 Pulse Rate 115 H 10/23/24 22:28 Respiratory Rate 20 10/23/24 22:28 Blood Pressure 136/76 10/23/24 22:28 Pulse Oximetry 96 10/23/24 22:28 Oxygen Delivery Room Air 10/23/24 22:28 Temperature 36.6 C 10/23/24 22:28 Pulse Rate 109 H 10/24/24 00:01 Respiratory Rate 15 10/24/24 00:01 Blood Pressure 128/66 10/24/24 00:01 Pulse Oximetry 98 10/24/24 00:01 Oxygen Delivery Room Air 10/23/24 22:28 MDM - Asthma MDM Narrative Medical decision making narrative: patient is a 24-year-old female with asthma flare this evening here for evaluation. We will do updrafts and steroids. Chest x-ray. Probable antibiotic. Imaging Data Attestation: I personally reviewed and interpreted this imaging study as follows: My impression: chest x-ray is negative for acute process ( pending final read) Discharge Plan Discharge Clinical Impression: Asthma exacerbation Qualifiers: Asthma severity: moderate Asthma persistence: unspecified Qualified Code(s): J45.901 - Unspecified asthma with (acute) exacerbation Patient Disposition: Home Condition: Improved Instructions: Antibiotic Form, Asthma (ED) Patient Language: Sierra Leonean Prescriptions: New prednisone 20 mg tablet 40 mg PO DAILY 3 Days Qty: 6 0RF azithromycin 250 mg tablet See Rx Instructions .ROUTE .COMPLEX Qty: 6 0RF Rx Instructions: For 250 mg dose pack: take 500 mg today (day 1), then 250 mg for 4 days (days 2-5) No Action azithromycin 500 mg tablet 500 mg PO DAILY 3 Days Qty: 3 0RF prednisone 20 mg tablet 40 mg PO DAILY 3 Days Qty: 6 0RF propranolol 10 mg tablet 10 mg PO BID methimazole 10 mg tablet 10 mg PO DAILY vilazodone 20 mg tablet 20 mg PO DAILY Follow-up/Referrals: Sara,Sultana Palomares MD [Primary Care Provider] - Time of Disposition: 00:05
[2024-10-23] MEDS: IPRATROPIUM 0.5 MG/ALBUTEROL SULFATE 2.5 MG AMPUL.NEB 3 ML INHALATION (22:53)
[2024-10-23 23:03] VITALS: PULSE 113; RESP 21; O2SAT 97
[2024-10-23 23:15] VITALS: PULSE 113; RESP 21; O2SAT 95
[2024-10-23 23:31] VITALS: BP 123/48; PULSE 118; RESP 30; O2SAT 96
[2024-10-24] VITALS: PULSE 116; RESP 10; O2SAT 98
[2024-10-24 00:01] VITALS: BP 128/66; PULSE 109; RESP 15; O2SAT 98
--- NOTE | 2024-10-24 00:03 | PC.NURSE ---
ERP aware of pt's vital signs. No new orders.
== END 2024-10-24 00:13 | disposition home or self-care (01) ==
PROVIDERS: Emergency Provider Emergency Medicine; PCP Family Medicine
DX: J45.901 Unspecified asthma with (acute) exacerbation (principal); F17.290 Nicotine dependence, other tobacco product, uncomplicated
CPT/HCPCS: 71045; 96372; 99284; J2919

== ENCOUNTER 2024-12-04 08:18 | Emergency (ER) | payer BC, OTHER, SELFPAY ==
[2024-12-04 08:19] VITALS: BP 140/83; PULSE 94; RESP 16; TEMP 36.6; O2SAT 99
--- OUTSIDE RECORDS SUMMARY | 2024-12-04 08:20 | XMS_ITS | Clinical Summary ---
Author Organization [facility] Address [address] [place] [id number] Care Team Providers Care Concrete Curer Name Role Phone Jeanne Pearson MD Primary Care Provider [phone] Allergies Active Allergy Reactions Criticality Noted Date [...] CDT - 09/03/2024 2:34 AM CDT [facility] [place] [address] René Marin DO Breathing Problem Discharge Disposition: [...] Years) (1 of 2 - PCV) 2019 PHQ-2 (Physician [place]) 03/23/2024 COVID-19 Vaccine (1 - 2024-25 season) 2024 Meningococcal Vaccine Completed 10/29/2017, 015 Meningococcal B Vaccine Aged Out No l onger eligible based on patient's age to complete this topic RSV Immunizations Under 20 Months Aged Out No longer eligible based on patient's age to complete this topic Insurance [facility] Advance Directives * Full Code (Latest Code Status on File) Date Activated Date Inactivated Comments 09/04/2020 8:38 PM 09/06/2020 6:28 AM * Full Code Date Activated Date Inactivated Comments 09/04/2020 5:38 PM 09/04/2020 8:38 PM Care Teams Concrete Curer Relationship Specialty Start Date End Date Jeanne Pearson MD [address] [place] [address] PCP - General FAMILY PRACTICE 07/04/20
--- OUTSIDE RECORDS SUMMARY | 2024-12-04 08:20 | XMS_ITS | Encounter Summary ---
Author Organization [facility] Address [address] [place] [address] Care Team Providers Care Industrial Property Appraiser Name Role Phone Cuauhtemoc Pickens MD Primary Care Provider [phone] Jeanne Pearson MD Primary Care Provider [phone] Encounter Details Date Type Department Care Team (Late st Contact Info) Description 08/28/2018 Abstract SFL CONVERSION [address] [place] [address] , Generic Conversion, Social History [...] documented as of this encounter Care Teams Industrial Property Appraiser Relationship Specialty Start Date End Date Cuauhtemoc Pickens MD [address] [place] [phone] PCP - General FAMILY PRACTICE 08/29/19 07/03/20 Jeanne Pearson MD [address] [place] [address] PCP - General FAMILY PRACTICE 07/04/20 documented as of this encounter
--- OUTSIDE RECORDS SUMMARY | 2024-12-04 08:20 | XMS_ITS | Clinical Summary ---
Author Organization [place] [id number] [facility] Address [address] [place] [address] Care Team Providers Care Sap Senior Developer Name Role Phone Sultana Ruiz MD Primary [...] on file Legal Sex Female 1:34 AM MAORI PHYSIOTHERAPIST Gender Identity Not on file Sexual Orientation Not on file Obstetrics History Last Filed Vital Signs Vital Sign Reading Time Taken Comments Blood Pressure 119/73 04/04/2024 3:57 PM MAORI PHYSIOTHERAPIST Pulse 87 04/04/2024 3:57 PM MAORI PHYSIOTHERAPIST Temperature 36.4 C (97.5 F) 04/04/2024 3:57 PM MAORI PHYSIOTHERAPIST Respiratory Rate - - Oxygen Saturation - - Inhaled Oxygen Concentration - - Weight 65.3 kg (144 lb) 04/04/2024 3:57 PM MAORI PHYSIOTHERAPIST Height 167.6 cm (5' 6) 04/04/2024 3:57 PM MAORI PHYSIOTHERAPIST Body Mass Index 23.24 04/04/2024 3:57 PM MAORI PHYSIOTHERAPIST Plan of Treatment Health Maintenance Due Date [...] 2000 Varicella Vaccines Completed 11/08/2014, 11/17/2001 Insurance [employer] [facility] OOS Member Subscriber Plan / Payer (Ef fective 2023-Present) Name:Emma Mazariegos Member ID:Not on file Relation to Subscriber:Child Name:Rey Mazariegos Date of :1974 Address: [address] [address] Payer ID:[id number] (NAIC) Group ID:Not on file Type:[facility] Address: [facility] [id number] [place] [id number] [employer] [facility] Care Teams Sap Senior Developer Relationship Specialty Start Date End Date Sultana Ruiz MD [address] [place] [id number] PCP - General Family Medicine 09/21/23
--- NOTE | 2024-12-04 08:33 | ED.URI ---
HPI - URI/Sore Throat General Chief Complaint: Upper Respiratory Infection Stated Complaint: rash & sore throat Time Seen by Provider: 12/04/24 08:20 Source: patient Mode of arrival: ambulatory Limitations: no limitations History of Present Illness HPI Narrative: 24-year-old female With a history of asthma, anxiety / depression, hyperthyroidism, presents to the ED with a 3 day history of -- erythematous macules which are generalized with an increased density around her buttocks. rash is intensely pruritic -- sore throat. No fever or chills. No ear pain. No cough, sputum production or shortness of breath. patient is not taking her methimazole On a regular basis. MD elicited complaint: sore throat Pertinent past history: asthma Onset (ago): day(s) ( Three days) Consistency: constant Severity: mild Able to tolerate fluids by mouth: Yes Exacerbating factors: nothing Relieving factors: nothing Associated symptoms: denies other symptoms, sore throat and other ( erythematous itchy rash) Treatments prior to arrival: none Related Data Home Medications ?Medication ?Instructions ?Recorded ?Confirmed ?Last Taken ?Type methimazole 10 mg tablet 10 mg PO DAILY 02/21/24 02/21/24 Unknown History propranolol 10 mg tablet 10 mg PO BID 02/21/24 02/21/24 Unknown History vilazodone 20 mg tablet 20 mg PO DAILY 02/21/24 02/21/24 Unknown History Allergies Allergy/AdvReac Type Severity Reaction Status Date / Time Penicillins Allergy Intermediate hives Verified 12/04/24 08:39 Review of Systems Review of Systems: All systems reviewed & are unremarkable except as noted in HPI and below Constitutional: Constitutional: Reports as per HPI and Reports no additional constitutional complaints Eyes: Eyes: Reports as per HPI and Reports no additional eye complaints ENT: Reports system reviewed and no additional complaints, except as documented, Reports as per HPI and Reports sore throat Cardiovascular: Cardiovascular: Reports as per HPI and Reports no additional cardiovascular complaints Respiratory: Respiratory: Reports as per HPI and Reports no additional respiratory complaints Gastrointestinal: Gastrointestinal: Reports as per HPI and Reports no additional gastrointestinal complaints Genitourinary: Genitourinary: Reports no additional female genitourinary complaints and Reports as per HPI Musculoskeletal: Musculoskeletal: Reports no additional musculoskeletal complaints and Reports as per HPI Integumentary/Breasts: Skin/Breast: Reports system reviewed and no additional complaints, except as docu Comments: erythematous macular rash which is generalized with increased density around her buttocks. Neurologic: Reports system reviewed and no additional complaints, except as documented and Reports as per HPI Psychiatric: Psychiatric: Reports no additional psychiatric complaints, Reports as per HPI and Reports anxiety Endocrine: Endocrine: Reports no additional endocrine complaints and Reports as per HPI Hematologic/Lymphatic: Hematologic/Lymphatic: Reports no additional hematologic/lymphatic complaints and Reports as per HPI Allergic/Immunologic: Allergic/Immunologic: Reports no additional allergic/immunologic complaints and Reports as per [facility]PI [facility] Past Medical History Medical History Hyperthyroidism Anxiety Intermittent asthma, uncontrolled Depression Surgical History Surgical History History of placement of ear tubes Family History Family History Mother Hypertension Social History Social History Social History: Surrogate medical decision maker: Taiwo Mazariegos ([phone]), mother Code status: Full code. Tobacco type: e-cigarettes/vaping Second hand tobacco smoke exposure: Yes Alcohol intake: current Alcohol use details: rare alcohol use in moderation Substance use: never Do You Feel Safe in your Home?: Yes Lack of Transportation: No Lack of Food: Never True Current Housing: I Have Housing Concerned About Future Housing: No Difficulty Paying Gas/Electric Bills: No Difficulty Paying for Meds: No Currently Unemployed: No Education: Associate Degree Difficulty w/ Childcare or Family Care: No Living arrangements: with family Additional living arrangements comments: Lives with significant other and their 3 children in [place]. Additional occupation/education comments: Stay at home mom. Spiritual care concerns: No Exam Narrative: Vitals are stable. Const: Orientation/consciousness: patient oriented x3 Limitations: no limitations HENMT: Head: normal to inspection Ears: external ears normal and TM's normal bilaterally ( Left tympanic membrane has a healed perforation.) Face/Nose/Sinus: Normal external nose present Face and sinus: normal facial exam Mouth: Yes Normal oral and palatal mucosa present Throat: posterior oropharynx normal ( Pharyngeal erythema) Eyes: Conjunctivae: conjunctivae normal Pupils: Equal, round and reactive pupils present EOM: EOMs intact bilaterally Direct Ophthalmoscopy: no photophobia Other: no exophthalmos Neck: Neck: normal visual inspection, no lymphadenopathy and no meningeal signs Other: diffuse thyroid swelling Chest: Chest palpation & inspection: normal inspection of the chest Resp: Effort & Inspection: normal respiratory effort Auscultation: clear to auscultation bilaterally Cardio: Rate: regular rate Rhythm: regular rhythm GI: GI Palp: Yes Soft to palpation Auscultation: normal bowel sounds Other: no tenderness/rigidity/rebound : General: Yes no CVA tenderness Back/Spine/Pelvis: Back: no CVA tenderness Skin: General skin exam: normal color Rashes: no rashes Other: diffuse erythematous maculopapular rash which is itchy. Neuro: General: patient oriented x3, moves all extremities, no meningeal signs, no focal motor deficits and CN's II-XI intact bilaterally Cranial nerves: Yes Nystagmus not present Speech: normal speech Extrem: General: normal to inspection and no clubbing, cyanosis or edema Psych: Mental Status: mental status grossly normal Affect: normal affect Attitude: cooperative Course Course Emergency Course: Pharyngitis-- tested negative for RSV / influenza / COVID and strep. pruritic maculopappular rash-- scabies- Will treat with permethrin hyperthyroidism with a TSH of less than 0.015. will have the patient continue methimazole Vital Signs Vital signs: Vital Signs Temperature 36.6 C 12/04/24 08:19 Pulse Rate 94 12/04/24 08:19 Respiratory Rate 16 12/04/24 08:19 Blood Pressure 140/83 12/04/24 08:19 Pulse Oximetry 99 12/04/24 08:19 Oxygen Delivery Room Air 12/04/24 08:19 Temperature 36.6 C 12/04/24 08:19 Pulse Rate 94 12/04/24 08:19 Respiratory Rate 16 12/04/24 08:19 Blood Pressure 140/83 12/04/24 08:19 Pulse Oximetry 99 12/04/24 08:19 Oxygen Delivery Room Air 12/04/24 08:19 MDM - URI/Sore Throat MDM Narrative Medical decision making narrative: upper respiratory tract infection scabies hypothyroidism Differential Diagnosis Differential diagnosis: Likely sinusitis Medical Records Attestation: I reviewed the patient's medical records. Lab Data Attestation: I reviewed the patient's lab results. 12/04/24 08:49 12/04/24 08:49 Labs: Lab Results 12/04/24 12/04/24 12/04/24 Range/Units 08:40 08:49 09:03 WBC 4.8 (4.8-10.8) K/mm3 RBC 4.43 (4.20-5.40) M/mm3 Hgb 12.8 (12.0-15.0) g/dL Hct 38.8 (35.0-49.0) % MCV 87.6 (78.0-102.0) fL MCH 28.9 (27.0-31.0) pg MCHC 33.0 (32-36) g/dL RDW 11.3 L (11.6-14.4) % Plt Count 251 (150-420) K/mm3 MPV 10.2 (9.2-11.8) fl Immature Gran % (Auto) 0.2 H (0.0-0.0) % Neut % (Auto) 30.8 L (50.0-70.0) % Lymph % (Auto) 42.9 H (18.0-42.0) % [place] % (Auto) 11.6 H (2.0-11.0) % Eos % (Auto) 13.9 H (1.0-6.0) % Baso % (Auto) 0.6 (0.0-1.0) % Lymph # (Auto) 2.07 (1.10-4.50) K/mm3 [place] # (Auto) 0.56 (0.10-0.90) K/mm3 Eos # (Auto) 0.67 H (0.02-0.50) K/mm3 Baso # (Auto) 0.03 (0.00-0.10) K/mm3 Abs Immat Gran (auto) 0.01 H (0.00-0.00) K/mm3 Absolute Neuts (auto) 1.48 L (1.70-7.20) K/mm3 Absolute Nucleated RBC 0.00 (0.00-0.00) K/mm3 Nucleated RBC % 0.0 (0-0.0) % Sodium 141 (137-145) mmol/L Potassium 4.4 (3.4-5.0) mmol/L Chloride 107 (98-107) mmol/L Carbon Dioxide 25 (22-30) mmol/L Anion Gap 9 (4-12) mmol/L BUN 12 (7-17) mg/dL Creatinine 0.54 L (0.7-1.0) mg/dL Estim Creat Clear Calc 126 ml/min Estimated GFR > 60 (59 - ) Glucose 96 (65-110) mg/dL Calculated Osmolality 291 (285-295) mOsm/kg Calcium 9.9 (8.4-10.2) mg/dL Total Bilirubin 0.6 (0.2-1.3) mg/dL AST 28 (14-36) U/L ALT 37 H (6-35) U/L Alkaline Phosphatase 74 (38-126) U/L Total Protein 7.4 (6.3-8.2) g/dL Albumin 4.2 (3.5-5.1) g/dL TSH < 0.015 L (0.465-4.680) uIU/mL Urine Test Negative Influenza A (RT-PCR) Negative (Negative) Influenza B (RT-PCR) Negative (Negative) RSV (RT-PCR) Negative (Negative) SARS-CoV-2 RNA (RT-PCR) Negative (Negative) Group A Strep (PCR) Not detected (Negative) ECG Data EKG #1: ECG completion date: 12/04/24 ECG completion time: 08:46 Interpretation: normal sinus rhythm. Normal axis. No ST-T wave changes noted. Discharge Plan Discharge Clinical Impression: Hyperthyroidism, Scabies Upper respiratory infection Qualifiers: URI type: unspecified URI Qualified Code(s): J06.9 - Acute upper respiratory infection, unspecified Patient Disposition: Home Condition: Stable Instructions: Antibiotic Form, Hyperthyroidism (ED), Scabies (ED), Upper Respiratory Infection (ED) Patient Language: [place]an Prescriptions: New permethrin [Elimite] 5 % cream 1 applic topical Q14D Qty: 60 0RF Rx Instructions: apply second treatment 14 days after first treatment if live lice remain No Action propranolol 10 mg tablet 10 mg PO BID methimazole 10 mg tablet 10 mg PO DAILY vilazodone 20 mg tablet 20 mg PO DAILY Follow-up/Referrals: Sara,Sultana Palomares MD [Primary Care Provider, Unknown] Time of Disposition: 10:39
--- NOTE | 2024-12-04 08:39 | ECG_ITS ---
Test Date: 2024-12-04 08:46:07 Measurements Intervals [place] Rate: 86 P: -22 IA: 109 QRS: 62 QRSD: 86 T: 42 QT: 369 QTc: 442 Interpretive Statements SINUS RHYTHM WITH SHORT IA INTERVAL POSSIBLE RIGHT VENTRICULAR CONDUCTION DELAY [RSR (QR) IN V1/V2] ABNORMAL ECG Compared to ECG 02/21/2024 16:07:01 Short IA interval now present Electronically Signed On 12-04-2024 09:32:51 CDT by Stephen Yanes M.D.
--- NOTE | 2024-12-04 08:49 | PC.NURSE ---
Covid culture given to lab
[2024-12-04 08:54] LABS: Hematocrit 38.8 % (35.0-49.0); Hemoglobin 12.8 g/dL (12.0-15.0); Immature Granulocyte Percent A 0.2 % (0.0-0.0); Lymphocytes Absolute Auto 2.07 K/mm3 (1.10-4.50); Mean Corpuscular HGB Conc 33.0 g/dL (32-36); Mean Corpuscular Hemoglobin 28.9 pg (27.0-31.0); Mean Corpuscular Volume 87.6 fL (78.0-102.0); Nucleated Red Blood Cells Absolute Auto 0.00 K/mm3 (0.00-0.00); Nucleated Red Blood Cells Perc 0.0 % (0-0.0); Platelet Count Result 251 K/mm3 (150-420); Red Blood Count 4.43 M/mm3 (4.20-5.40); White Blood Count 4.8 K/mm3 (4.8-10.8)
--- OUTSIDE RECORDS SUMMARY | 2024-12-04 08:59 | XMS_ITS | Encounter Summary ---
Author Organization [facility] Address [address] [place] [address] Care Team Providers Care Nip Wrapper Name Role Phone Cuauhtemoc Pickens MD Primary Care Provider [phone] Jeanne Pearson MD Primary Care Provider [phone] Encounter Details Date Type Department Care Team (Late st Contact Info) Description 08/28/2018 Abstract SFL CONVERSION [address] [place] [address] , Generic Conversion, Social History [...] documented as of this encounter Care Teams Nip Wrapper Relationship Specialty Start Date End Date Cuauhtemoc Pickens MD [address] [place] [phone] PCP - General FAMILY PRACTICE 08/29/19 07/03/20 Jeanne Pearson MD [address] [place] [address] PCP - General FAMILY PRACTICE 07/04/20 documented as of this encounter
--- OUTSIDE RECORDS SUMMARY | 2024-12-04 08:59 | XMS_ITS | Clinical Summary ---
Author Organization [place] [id number] [facility] Address [address] [place] [address] Care Team Providers Care Mobile Battery Technician Name Role Phone Sultana Ruiz MD Primary [...] on file Legal Sex Female 1:34 AM [employer] Gender Identity Not on file Sexual Orientation Not on file Obstetrics History Last Filed Vital Signs Vital Sign Reading Time Taken Comments Blood Pressure 119/73 04/04/2024 3:57 PM [employer] Pulse 87 04/04/2024 3:57 PM [employer] Temperature 36.4 C (97.5 F) 04/04/2024 3:57 PM [employer] Respiratory Rate - - Oxygen Saturation - - Inhaled Oxygen Concentration - - Weight 65.3 kg (144 lb) 04/04/2024 3:57 PM [employer] Height 167.6 cm (5' 6) 04/04/2024 3:57 PM [employer] Body Mass Index 23.24 04/04/2024 3:57 PM [employer] Plan of Treatment Health Maintenance Due Date [...] 2000 Varicella Vaccines Completed 11/08/2014, 11/17/2001 Insurance [employer] [facility] Member Subscriber Plan / Payer (Ef fective 2023-Present) Name:Emma Mazariegos Member ID:Not on file Relation to Subscriber:Child Name:Rey Mazariegos Date of :1974 Address: [address] [address] Payer ID:[id number] (NAIC) Group ID:Not on file Type:[facility] Address: [facility] [id number] [place] [id number] [employer] [facility] Care Teams Mobile Battery Technician Relationship Specialty Start Date End Date Sultana Ruiz MD [address] [place] [id number] PCP - General Family Medicine 09/21/23
--- OUTSIDE RECORDS SUMMARY | 2024-12-04 08:59 | XMS_ITS | Clinical Summary ---
Author Organization [facility] Address [address] [place] [id number] Care Team Providers Care Carton Stamper Name Role Phone Jeanne Pearson MD Primary Care Provider [phone] Allergies Active Allergy Reactions Criticality Noted Date [...] CDT - 09/03/2024 2:34 AM CDT Emergency [facility] [place] [address] René Marin DO Breathing Problem Discharge Disposition: [...] of 2 - PCV) 2019 PHQ-2 (Physician [place]) 03/23/2024 COVID-19 Vaccine (1 - 2024-25 season) 2024 Meningococcal Vaccine Completed 10/29/2017, 015 Meningococcal B Vaccine Aged Out No l onger eligible based on patient's age to complete this topic RSV Immunizations Under 20 Months Aged Out No longer eligible based on patient's age to complete this topic Insurance [facility] Advance Directives * Full Code (Latest Code Status on File) Date Activated Date Inactivated Comments 09/04/2020 8:38 PM 09/06/2020 6:28 AM * Full Code Date Activated Date Inactivated Comments 09/04/2020 5:38 PM 09/04/2020 8:38 PM Care Teams Carton Stamper Relationship Specialty Start Date End Date Jeanne Pearson MD [address] [facility] [place] [id number] PCP - General FAMILY PRACTICE 07/04/20
[2024-12-04 09:04] LABS: Alanine Aminotransferase 37 U/L (6-35); Albumin Level 4.2 g/dL (3.5-5.1); Alkaline Phosphatase 74 U/L (38-126); Anion Gap 9 mmol/L (4-12); Aspartate Amino Transferase 28 U/L (14-36); Bilirubin,Total 0.6 mg/dL (0.2-1.3); Blood Urea Nitrogen 12 mg/dL (7-17); Calcium 9.9 mg/dL (8.4-10.2); Carbon Dioxide 25 mmol/L (22-30); Chloride 107 mmol/L (98-107); Estimated CRCL calculation 126 ml/min; Estimated Glomerular Filt Rate > 60; Glucose 96 mg/dL (65-110); Osmolality Calculated 291 mOsm/kg (285-295); Potassium 4.4 mmol/L (3.4-5.0); Sodium 141 mmol/L (137-145); Total Protein 7.4 g/dL (6.3-8.2)
[2024-12-04 09:14] LABS: Pregnancy On Board Control Positive
[2024-12-04 09:19] LABS: Strep Group A RT-PCR NOT DETECTED (Negative)
[2024-12-04 09:31] LABS: Influenza A QL RT-PCR Negative (Negative); Influenza B QL RT-PCR Negative (Negative); RSV RNA, RT-PCR Negative (Negative); SARS-CoV-2 RNA PCR Negative (Negative)
[2024-12-04 09:34] LABS: Thyroid Stimulating Hormone < 0.015 uIU/mL (0.465-4.680)
[2024-12-04 10:48] VITALS: BP 121/69; PULSE 94; RESP 20; TEMP 36.7; O2SAT 98
== END 2024-12-04 10:51 | disposition home or self-care (01) ==
PROVIDERS: Emergency Provider Internal Medicine Critical Care Medicine; PCP Family Medicine
DX: E05.90 Thyrotoxicosis, unspecified without thyrotoxic crisis or storm (principal); B86 Scabies; J06.9 Acute upper respiratory infection, unspecified; F17.290 Nicotine dependence, other tobacco product, uncomplicated; Z20.822 Contact with and (suspected) exposure to COVID-19
CPT/HCPCS: 36415; 80053; 81025; 84443; 85025; 87637; 87651; 93005; 99283